=== PATIENT | female | born 1960 | race Caucasian/White ===

== ENCOUNTER 2016-10-24 16:19 | Inpatient (IN) | payer OTHER ==
[~2016-10-24] VITALS: Ht 152.4 cm; Wt 41.8 kg
--- NOTE | 2016-10-24 16:37 | NUR ---
WAS EVALUATED BY HER PULMONALOGIST WHOM RECOMMENDED SHE BE EVALUATED AT THE ED SECONDARY TO PNEUMONIA. HYPOXIA NOTED AT TRIAGE, TRANSFERED TO ROOM 6 FROM TRIAGE
--- NOTE | 2016-10-24 16:40 | NUR ---
REPORTS + COPD HX. O2 SAT 92% WITH 2 LITERS NC. REMAINS A DAILY SMOKER
--- NOTE | 2016-10-24 16:43 | NUR ---
O2 INCRASED TO 4 LITERS NC
--- NOTE | 2016-10-24 17:12 | NUR ---
PORTABLE CXRY BEING DONE AT PRESENT
--- NOTE | 2016-10-24 17:29 | ED DYSPNEA/ASTHMA COMPLAINT ---
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, LOW SUGAR Source: patient Exam Limitations: no limitations Vital Signs & Intake/Output Vital Signs & Intake/Output Vital Signs Date Time Temp Pulse Resp B/P Pulse O2 O2 Flow FiO2 Ox Delivery Rate 10/29 1024 93 Nasal 3.0L Cannula 10/29 0800 96 Nasal 3.0L Cannula 10/29 0600 98.4 87 18 100/62 96 Nasal Cannula ED Intake and Output 10/30 0000 10/29 1200 Intake Total 300 Output Total Balance 300 Intake, Oral 300 Number 0 Bowel Movements Allergies Coded Allergies: NO KNOWN ALLERGIES (06/03/12) Triage Note: WAS EVALUATED BY HER PULMONALOGIST WHOM RECOMMENDED SHE BE EVALUATED AT THE ED SECONDARY TO PNEUMONIA. Triage Nurses Notes Reviewed? yes HPI: 56 yo female with copd and RA, smoker currently, sees pulm, co sob and cough w green sputum for 1 week, intermittent fever and chills. seen by pulm today , O2 82% in office and cxr in office , dx with pna. was told to take ambulance to [facility] however pt refused. she then went home and presented here several hours later for further evaluation. no cp. sx are moderate, she has ROBLES. she is not on O2, . Using home neb tx and symbicort without relief. (JEANIE JOHNSTON,JORGE) Reconcile Medications Albuterol Sulfate (Proair Hfa) 90 MCG HFA.AER.AD 2 PUF INH Q4-6 PRN PRN COPD (Reported) Ascorbic Acid (Vitamin C) 500 MG TABLET 1 TAB PO DAILY SUPPLEMENT (Reported) Budesonide/Formoterol Fumarate (Symbicort 160-4.5 Mcg Inhaler) 160 MCG-4.5 MCG/ ACTUATION HFA.AER.AD 2 PUF INH BID COPD (Reported) Carisoprodol 350 MG TABLET 1 TAB PO 4XDAILY RA (Reported) Cholecalciferol (Vitamin D3) (Vitamin D) 2,000 UNIT CAPSULE 1 TAB PO DAILY SUPPLEMENT (Reported) Codeine/Butalbital/Asa/Caffein (Ascomp With Codeine Capsule) 30 MG-50 MG-325 MG- 40 MG CAPSULE 1 CAP PO PRN MIGRAINES (Reported) Hydromorphone HCl 4 MG TABLET 1 TAB PO TID PAIN (Reported) Ipratropium/Albuterol Sulfate (Iprat-Albut 0.5-3(2.5) MG/3 Ml) 0.5 MG-3 MG (2.5 MG BASE)/3 ML AMPUL.NEB 1 VIAL INH Q4H PRN COPD (Reported) Moxifloxacin HCl (Avelox) 400 MG TABLET 1 TAB PO DAILY PNEUMONIA Oxymorphone HCl (Oxymorphone HCl ER) 20 MG TAB.ER.12H 1 TAB PO BID PAIN ( Reported) Prednisone 10 MG TABLET 1 TAB PO DAILY COPD please take 40 mg(4 tabs) on 10/30,10/31 30 mg(3 tabs) on 11/01,11/02 20 mg(2 tabs) on 11/03,11/04 10 mg(1 tab ) on 11/05,11/06. Please stop on 11/06/16. Tiotropium [place] (Spiriva) 18 MCG CAP.W.DEV 1 CAP INH DAILY COPD . (WAYNE GRAY,SARATH Olson) Past History Travel History Traveled to [place] past 21 day No Medical History Any Pertinent Medical History? see below for history Respiratory: copd Musculoskeletal: RA Pneumonia Vaccine: 06/18/07 Influenza Vaccine: 06/04/12 Surgical History Surgical History: non-contributory Psychosocial History Who do you live with Spouse Services at Home None What is your primary language Gabonese Tobacco Use: Current Daily Use Daily Tobacco Use Amount/Type: => 5 Cigarettes daily Family History Hx Contributory? No (JORGE METZGER) Review of Systems Review of Systems Constitutional: Reports: see HPI. EENTM: Reports: no symptoms. Respiratory: Reports: see HPI. Cardiovascular: Reports: no symptoms. GI: Reports: no symptoms. Genitourinary: Reports: no symptoms. Musculoskeletal: Reports: no symptoms. Skin: Reports: no symptoms. Neurological/Psychological: Reports: no symptoms. Hematologic/Endocrine: Reports: no symptoms. Immunologic/Allergic: Reports: no symptoms. All Other Systems: Reviewed and Negative (JORGE METZGER) Physical Exam Physical Exam Respiratory: accessory muscle use Comments: Well-developed well-nourished no apparent distress. HEENT: Atraumatic, extraocular motion intact Neck: Supple, no lymphadenopathy Back: Nontender Respiratory: No respiratory distress, mild diffuse inspiratory and expiratory wheezing with prolonged expiratory phase and diminished breath sounds, rhonchi noted bilaterally most severe left lower lobe. Heart: Regular rate and rhythm no murmur Abdomen: Soft nontender nondistended Extremities: No edema, full range of motion Neuro: Alert and oriented x3 Psych: Mood affect normal, normal memory normal judgment. Skin: Warm and dry, no rash on exposed skin Core Measures ACS in differential dx? Yes Severe Sepsis Present: No Septic Shock Present: No (JORGE METZGER) Progress Differential Diagnosis: asthma, AMI, altitude sickness, bronchitis, costochondritis, CHF, COPD, musculoskeletal pain, pericarditis, pulmonary embolism, pneumonia, pneumothorax, rib fracture, unstable angina Plan of Care: Orders Procedure Date/time Status Discharge Patient 10/29 UNK Active Diagnostic Imaging: Viewed by Me: Radiology Read. Discussed w/RAD: Radiology Read. CXR Impression: PATIENT: CHARMAINE JOYA PRESENT AGE: 56 PATIENT ACCOUNT NO: [id number] : 58 LOCATION: [facility] ORDERING PHYSICIAN: SARATH DAILEY DO SERVICE DATE: 10/24/16 EXAM TYPE: RAD - XRY- PORTABLE CHEST XRAY EXAMINATION: XR PORTABLE CHEST CLINICAL INFORMATION: Hypoxia. COMPARISON: 06/03/2012 TECHNIQUE: Portable AP portable view of the chest was obtained. 5:10 PM FINDINGS: Small patchy infiltrate at the left lung base. This is new since prior exam. Right lung is clear. No pulmonary vascular congestion. No pleural effusion. The heart size is normal. The cardiac and mediastinal contours are normal. Dextroscoliosis of the upper mid thoracic spine. IMPRESSION: Small patchy left is a infiltrate. DICTATED BY: MAAME BLANCHARD MD DATE/TIME DICTATED:10/24/161730 TAPE MAKER:KRISSY Initial ED EKG: NSR, rate (95), multiform ventricular premature complexes. No ST segment or T-wave changes Prior EKG: unchanged Rhythm Strip: normal sinus rhythm Comments: DuoNeb treatment given, treated with 80 mg solu- Medrol IV, Rocephin 1 g IV, Zithromax 500 mg IV. Chest x-ray shows left lower lobe pneumonia, patient with hypoxia, smoker, worsening COPD exacerbation. Requires admission to the hospital for further evaluation and treatment and respiratory treatments as well as IV steroids and supplemental oxygen (JORGE METZGER) Departure Departure Disposition: STILL A PATIENT Condition: Stable Clinical Impression Primary Impression: Pneumonia Qualifiers: Pneumonia type: due to unspecified organism Laterality: left Lung location: lower lobe of lung Qualified Code: J18.1 - Lobar pneumonia, unspecified organism Secondary Impressions: Acute respiratory failure with hypoxia and hypercapnia, COPD exacerbation, Hypoxia Referrals: PATIENT HAS NO PRIMARY CARE DR Departure Forms: Customer Survey General Discharge Information Admission Note Spoke With: LINDA GRAY,RACHEL Documentation of Exam: Documentation of any treatments & extenuating circumstances including Concerns Regarding Discharge (functional status, medication knowledge or non-compliance, living conditions, etc.) that warrant an admission rather than observation: Patient requires supplemental oxygen, nebulizer treatments, IV site Medrol, IV antibiotics, she is a poor candidate for discharge home due to pulse ox of 82% as outpatient. She is a danger for worsening acute hypoxic respiratory failure and worsening pneumonia (JORGE METZGER) Departure Prescriptions: Current Visit Scripts Prednisone 1 TAB PO DAILY #22 TAB please take 40 mg(4 tabs) on 10/30,10/31 30 mg(3 tabs) on 11/01,11/02 20 mg(2 tabs) on 11/03,11/04 10 mg(1 tab ) on 11/05,11/06. Please stop on 11/06/16. Tiotropium [place] (Spiriva) 1 CAP INH DAILY #30 CAP . Moxifloxacin HCl (Avelox) 1 TAB PO DAILY 5 Days PA/AMMONIA REFRIGERATION WORKER Co-Sign Statement Statement: ED Attending supervision documentation- [] I saw and evaluated the patient. I have also reviewed all the pertinent lab results and diagnostic results. I agree with the findings and the plan of care as documented in the PA's/AMMONIA REFRIGERATION WORKER's documentation. [X] I have reviewed the ED Record and agree with the PA's/AMMONIA REFRIGERATION WORKER's documentation. [] Additions or exceptions (if any) to the PAs/AMMONIA REFRIGERATION WORKER's note and plan are summarized below: [] (WAYNE GRAY,SARATH Olson) Critical Care Note Critical Care Note Critical Care Time: 30-74 min (JORGE METZGER) Critical Care Note Critical Care Note Critical Care Time: 30-74 min
--- NOTE | 2016-10-24 17:38 | RADIOLOGY REPORT ---
EXAMINATION: XR PORTABLE CHEST CLINICAL INFORMATION: Hypoxia. COMPARISON: 06/03/2012 TECHNIQUE: Portable AP portable view of the chest was obtained. 5:10 PM FINDINGS: Small patchy infiltrate at the left lung base. This is new since prior exam. Right lung is clear. No pulmonary vascular congestion. No pleural effusion. The heart size is normal. The cardiac and mediastinal contours are normal. Dextroscoliosis of the upper mid thoracic spine. IMPRESSION: Small patchy left is a infiltrate.
[2016-10-24] MEDS ORDERED: HYDROMORPHONE HC4 M1 PO (17:48)
[2016-10-24] MEDS ORDERED: SYMBICORT 16010.2 GM INH (17:48)
[2016-10-24] MEDS ORDERED: OXYMORPHONE HCL20 MG PO (17:48)
[2016-10-24] MEDS ORDERED: CARISOPRODOL350 M1 PO (17:48)
[2016-10-24] MEDS ORDERED: IPRAT-ALBUT 0.5-3 ML INH (17:49)
[2016-10-24] MEDS ORDERED: ASCOMP WITH CO1 EACH PO (17:50)
[2016-10-24] MEDS ORDERED: PROAIR HFA8.5 GM INH (17:50)
[2016-10-24] MEDS ORDERED: VITAMIN C500 M8 PO (17:50)
[2016-10-24] MEDS ORDERED: VITAMIN D2000 UNIT PO (17:51)
--- NOTE | 2016-10-24 19:18 | NUR ---
LABS DRAWN AND SENT BY THIS [facility] (BLUE,SST,LAV,CARABALLO,BOTH SETS OF B/C)
[2016-10-24 19:26] LABS: ABSOLUTE BASOPHIL COUNT 0 /CUMM (0.0-0.2); ABSOLUTE EOSINOPHIL COUNT 0.1 /CUMM (0.0-0.7); ABSOLUTE GRANULOCYTE CT 3.5 /CUMM (1.4-6.5); ABSOLUTE LYMPH COUNT 2.3 /CUMM (1.2-3.4); ABSOLUTE MONOCYTE COUNT 0.5 /CUMM (0.10-0.60); BASOPHIL % 0.2 % (0.0-2.0); EOSINOPHIL % 2.2 % (0-5); GRANULOCYTE % 54.8 % (42.2-75.2); HEMATOCRIT 40.9 % (37-47); MEAN CORPUSCULAR HGB 30.6 PG (27.0-31.0); MEAN CORPUSCULAR HGB CONC 33.4 G/DL (33.0-37.0); MEAN CORPUSCULAR VOLUME 91.5 FL (81.0-99.0); MEAN PLATELET VOLUME 6.4 FL (7.4-10.4); PLATELET COUNT 226 /CUMM (130-400); RBC DISTRIBUTION WIDTH 14.1 % (11.5-14.5); RED BLOOD CELL CT 4.47 /CUMM (4.20-5.40); WHITE BLOOD CELL COUNT 6.5 /CUMM (4.8-10.8)
--- NOTE | 2016-10-24 19:40 | NUR ---
MEDICATED PER EMAR. PT ALERT, EATING FOOD BROUGHT BY VISITOR AND LAUGHING AND TALKING IN NAD.
--- NOTE | 2016-10-24 19:45 | NUR ---
PT ASKED ABOUT URINE SAMPLE AND STATES SHE IS UNABLE TO PROVIDE ONE AT THIS TIME
--- NOTE | 2016-10-24 20:36 | NUR ---
[facility] [place] ASSIGNMENT [phone]
--- NOTE | 2016-10-24 20:42 | History & Physical ---
JOSHUA GRAY,KINGSTON 10/24/162041: General Information and HPI MD Statement: I have seen and personally examined CHARMAINE JOYA and documented this H&P. The patient is a 56 year old F who presented with a patient stated chief complaint of [difficulty breathing and cough]. Source of Information: patient Exam Limitations: no limitations History of Present Illness: Patient is a 56 year old lady who has come to the ED due to worsening SOB since last monday (3-4 days ago). About a week prior she had an episode Flu-like symptoms including fever (max 102), with chills and fatigue, her daughter was sick with the same symptoms as well. Patient also reported cough which was nonproductive at the beginning but has gradually become productive with green phlegm. Patient also reported gradual worsening of shortness of breath until last Monday when she couldn't 'get a breath', she tried to see her freight traffic consultant , Dr. Jaffe (in [place]) on Monday but was not successful. She tried Tylenol , nebulizers every 4 hours , which did not improve her symptoms. She saw her freight traffic consultant today, got a chest x-ray, suggesting pneumonia. He recommended that patient should come to the ED. Upon arrival to the ED patient's SaO2 was 88%, she was given duoneb and was put on oxygen. She was also given a dose of IV Solu-Medrol as well as azithromycin and ceftriaxone. Currently the patient's shortness of breath has significantly improved, still kept on 4 L of oxygen through nasal cannula. Reports productive coughing, no fever or chills. However reports a pain in her back on the left lower chest wall especially when she takes a deep breath. Patient has a history of heavy smoking in the past, COPD not on home oxygen, on Symbicort. Last PFT was done a year ago. Currently smokes only once in every 3 weeks. Past history is also significant for rheumatoid arthritis, currently reports active disease with joint pain on the right hand and left big toe. She follows up with Dr. Jimenez in [place]. Patient denies abdominal pain, changes in bowel habits, urinary symptoms. she reports not having very good appetite and that she has lost weight of about 40 pounds since her diagnosis of pancreatitis a few months ago. Allergies/Medications Allergies: Coded Allergies: NO KNOWN ALLERGIES (06/03/12) Home Med list Albuterol Sulfate (Proair Hfa) 90 MCG HFA.AER.AD 2 PUF INH Q4-6 PRN PRN COPD (Reported) Ascorbic Acid (Vitamin C) (Unknown Strength) TABLET (Unknown Dose) PO DAILY SUPPLEMENT (Reported) Budesonide/Formoterol Fumarate (Symbicort 160-4.5 Mcg Inhaler) 160 MCG-4.5 MCG/ ACTUATION HFA.AER.AD 2 PUF INH BID COPD (Reported) Carisoprodol 350 MG TABLET 1 TAB PO 4XDAILY RA (Reported) Cholecalciferol (Vitamin D3) (Vitamin D) (Unknown Strength) CAPSULE (Unknown Dose) PO DAILY SUPPLEMENT (Reported) Codeine/Butalbital/Asa/Caffein (Ascomp With Codeine Capsule) 30 MG-50 MG-325 MG- 40 MG CAPSULE 1 CAP PO PRN MIGRAINES (Reported) Hydromorphone HCl 4 MG TABLET 1 TAB PO TID PAIN (Reported) Ipratropium/Albuterol Sulfate (Iprat-Albut 0.5-3(2.5) MG/3 Ml) 0.5 MG-3 MG (2.5 MG BASE)/3 ML AMPUL.NEB 1 VIAL INH Q4H PRN COPD (Reported) Oxymorphone HCl (Oxymorphone HCl ER) 20 MG TAB.ER.12H 1 TAB PO BID PAIN ( Reported) Past History Travel History Traveled to [place] past 21 day No Medical History Respiratory: copd Musculoskeletal: RA Pneumonia Vaccine: 06/18/07 Influenza Vaccine: 06/04/12 Surgical History Surgical History: non-contributory Past Family/Social History Family History Relations & Conditions if any FATHER FH: diabetes mellitus MOTHER FH: diabetes mellitus FH: heart disease Psychosocial History Where do you live? Home Services at Home: None Primary Language: Belarusian Smoking Status: Current Some Day Smoker ETOH Use: denies use Illicit Drug Use: denies illicit drug use Functional Ability ADLs Independent: dressing, eating, toileting, bathing. Ambulation: independent IADLs Independent: shopping, housework, finances, food prep, telephone, transportation , medication admin. Review of Systems Review of Systems Constitutional: Denies: chills, fever, weakness. EENTM: Reports: no symptoms. Cardiovascular: Denies: chest pain, palpitations. Respiratory: Reports: cough, short of breath, sputum production. GI: Denies: abdominal pain, changes in stool. Genitourinary: Reports: no symptoms. Musculoskeletal: Reports: no symptoms. Skin: Reports: no symptoms. Neurological/Psychological: Reports: no symptoms. Hematologic/Endocrine: Reports: no symptoms. Immunologic/Allergic: Reports: no symptoms. Exam & Diagnostic Data Last 24 Hrs of Vital Signs/I&O Vital Signs Date Time Temp Pulse Resp B/P Pulse O2 O2 Flow FiO2 Ox Delivery Rate 10/25 0000 Nasal 4.0L Cannula 10/24 2231 97.6 90 20 100/60 94 Nasal Cannula 10/24 2128 96.8 89 18 118/64 95 Nasal 4.0L Cannula 10/24 1943 97.3 91 20 126/62 95 Nasal 4.0L Cannula 10/24 1805 97 Nasal 4.0L Cannula 10/24 1640 22 92 Nasal 2.0L Cannula 10/24 1635 97.1 72 24 121/72 88 Room Air Intake & Output 10/25 0800 10/25 0000 10/24 1600 Intake Total 970 Output Total Balance 970 Intake, IV 350 Intake, Oral 620 Patient 40.823 kg Weight Physical Exam General Appearance Alert, Oriented X3, Cooperative, No Acute Distress Skin No Rashes, No Breakdown, No Significant Lesion HEENT Atraumatic, PERRLA, EOMI, Mucous Membr. moist/pink Neck Supple, No JVD Cardiovascular Regular Rate, Normal S1, Normal S2 Lungs decreased breath sounds, expiratory wheezing bilaterally Abdomen Normal Bowel Sounds, Soft, No Tenderness Neurological Normal Speech, Strength at 5/5 X4 Ext, Normal Tone, Sensation Intact, Cranial Nerves 3-12 NL Extremities there is tenderness, erythema and edema over the second and third right metacarpophalangeal joints, as well as subcutaneous rheumatoid nodules on the palmar aspect of the right hand. there is tenderness, erythema and edema on the right 1st metatarsophalangial joint there is mild tenderness on the second left metacarpophalangeal joint. there is Vascular Normal Pulses, Pulses Symmetrical Last 24 Hrs of Labs/Norm: Laboratory Tests 10/24/162122: Urine Opiates Screen > 4000.00 H, Methadone Screen < 40, Barbiturate Screen < 60, Ur Phencyclidine Scrn < 6.00, Amphetamines Screen < 100, U Benzodiazepines Scrn < 85, Urine Cocaine Screen < 50, Urine Cannabis Screen 11.80 10/24/162055: Lactic Acid Cancelled 10/24/161899: Lactic Acid 1.5 10/24/161899: Anion Gap 6, Estimated GFR > 60, BUN/Creatinine Ratio 15.0, Glucose 80, Calcium 8.7, Magnesium 1.9, Total Bilirubin 0.3, AST 18, ALT 34, Alkaline Phosphatase 66 , Troponin I < 0.01, Total Protein 6.5, Albumin 3.7, Globulin 2.8, Albumin/ Globulin Ratio 1.3, CBC w Diff NO MAN DIFF REQ, RBC 4.47, MCV 91.5, MCH 30.6, RDW 14.1, MPV 6.4 L, Gran % 54.8, Lymphocytes % 35.4, Monocytes % 7.4, Eosinophils % 2.2, Basophils % 0.2, Absolute Granulocytes 3.5, Absolute Lymphocytes 2.3, Absolute Monocytes 0.5, Absolute Eosinophils 0.1, Absolute Basophils 0, PUBS MCHC 33.4 Microbiology 10/25 12 LOWER RESP: Respiratory Culture - COLB 10/25 12 LOWER RESP: Gram Stain - COLB 10/24 1908 BLOOD: Blood Culture - RECD 10/24 1899 BLOOD: Blood Culture - RECD Assessment/Plan Assessment: Patient is a 56-year-old lady with PMH of COPD not on home oxygen, pancreatitis and rheumatoid arthritis who came to the ED due to several days of worsening shortness of breath and productive cough. She also had a recent flu-like infection with fever and chills that is resolved. CXR showed small patchy infiltrate at the left lung base. Problem list and plan: Progressive shortness of breath with productive cough likely due to COPD exacerbation and possible bacterial PNA superimposed on a recent viral URTI. CXR showed small patchy infiltrate at the left lung base. no fever, but productive cough and chills. * O2 Supplementation as needed * Vital signs every shift * IV Solu-Medrol 40 mg IV Q8 * TRC nebs * mucinex 600 mg BID * Sputum culture * Legionella urine antigen * Ceftriaxone and azithromycin * Repeat CBC in a.m. * consider pulm consult if symptoms does not improve Rheumatoid arthritis * Continue home medications * Ibuprofen 600 Q6 PRN DVT px * lovenox Diet * regular FULL code As Ranked By This Provider Problem List: 1. COPD exacerbation 2. pneumonia 3. Rheumatoid arthritis Core Measures/Miscellaneous Acute Coronary Syndrome ACS Diagnosis: No Cerebrovascular Accident CVA/TIA Diagnosis: No Congestive Heart Failure CHF Diagnosis: No Venous Thromboembolism VTE Risk Factors: Acute medical illness, Age > 40 VTE Prophylaxis Ordered Inpt: Pharm- Lovenox No Mech VTE prophylaxis d/t: No contraindications No VTE Pharm Prophylaxis d/t: No contraindications VTE Diagnosis: No VTE Type: NONE VTE Confirmed by (Test): NONE Severe Sepsis Severe Sepsis Present: No Septic Shock Septic Shock Present: No Miscellaneous Documentation Attending Case Discussed With: LINDA GRAY,RACHEL Primary Care Physician: JORGE LEHMAN MD Patient sees these Specialists Dr. Jimenez Level of Patient Care: General Surgical MIKY ESQUIVEL 10/24/162043: Resident Review Statement Resident Statement: examined this patient, discussed with landscape maintenance internship, agreed with landscape maintenance internship Other Findings: Patient is 66-year-old female with past medical history significant for rheumatoid arthritis, COPD not on home oxygen was sent in from her freight traffic consultant with chief complaint of productive cough, fever and chills for last 3-4 days. According to patient she had flulike symptoms last week and had sick contact with her daughters who was also sick with cold symptoms. She started coughing this Monday and her cough was initially nonproductive but from today is more productive and she is bringing up greenish phlegm without any evidence of hemoptysis. She is a current smoker but she came down from a pack a day to few cigarettes a week for last few years she uses inhalers and nebulizer at home and recently she increased frequency without any significant relief. She had high- grade fever on Monday along with chills but she remained afebrile afterwards. She denied chest pain, palpitations, sinus headache or pressure, any urinary or bowel complaints. Vitals on admission were temperature 97.1, pulse 72, respiratory rate 24, blood pressure control 21/72 and she was saturating 88% on room air and later on her oxygen saturation went up to 92 on 2 L and then 4 L nasal cannula. Labs showed WBC count 6.5, hemoglobin 13.6, hematocrit 40.9, platelet count 226, sodium 141, potassium 3.7, carbon oxide 88, the urine 9 and creatinine 0.6. Lactic acid was within normal range and initial set of troponin was negative. Urine toxicology screening was positive for opiates for more than 4000. Chest x-ray showed small left-sided patchy infiltrate Physical examination Alert and oriented 3 with no acute distress Had a traumatic Neck supple Chest showed minimal. Entry Heart S1-S2 normal no added sounds Abdomen soft with normal bowel sounds Extremities showed no evidence of cyanosis edema, swollen first left metatarsal joint no evidence of infection or erythema Assessment and plan Patient is 56 year old female with a history of COPD not on home oxygen and rheumatoid arthritis treated with acute symptoms of productive cough mild left-sided pleuritic chest pain with evidence of left-sided lower lobe infiltrate on chest x-ray most likely due to community-acquired pneumonia. We will admit patient to general medical floor of her [facility] [place] for the following problems Problem #1 hypoxia and productive cough and left lower lobe patchy infiltrate on chest x-ray most likely due to community-acquired pneumonia versus COPD exacerbation Vital signs every shift Supplemental oxygen to keep oxygen saturation more than 90% We will trend WBCs and BEP TRC and embolization Will start her on ceftriaxone and azithromycin IV Solu-Medrol 40 mg every 8 hours Tessalon Perles for cough We will send sputum culture Problem #2 history of rheumatoid arthritis seen by pain management We will continue her home pain medication regimen. Regular diet , Pharmacological DVT prophylaxis Patient is full code LINDA GRAY, [facility] 10/24/162109: Attending MD Review Statement Attending Statement Attending MD Statement: examined this patient, discuss w/resident/PA/CONCRETING SUPERVISOR, agreed w/resident/PA/CONCRETING SUPERVISOR, discussed with family Attending Assessment/Plan: 56 yo F with h/o asthma/COPD who continues to smoke, RA (Dr. Jimenez [employer], Dr. Parekh pain mx), seasonal allergies, migraines, is sent in by her Bridge Engineer (Dr. Jaffe) for hypoxia. Patient reports have flu like symptoms 1 week ago, followed by chills, fever of 102, exertional dyspnea and cough productive of green phlegm. No relief with nebs. Sick contact ++ (daughter who had the flu). Her last exacerbation was 1 year ago. She has never been intubated. She was at her Pulm office today, O2 sats were 82%, CXR was s/o pneumonia and she was sent to ER for further evaluation. On ER arrival, her O2 sats were 88%, otherwise stable. Exam: Cachectic female, MMM, Neck supple, Chest b/l reduced air entry with scattered wheeze, left basilar rhonchi+. Heart S1S2 regular. Labs: no leukocytosis, bicarb 38, lactic acid 1.5, trop neg. Utox positive for opiates (patient's home meds). CXR s/o patchy infiltrate at left lung base. EKG: SR, PVC's, Qtc 473. 1. Acute hypoxic respiratory failure 2/2 LLL pneumonia and COPD exacerbation. GM admit, TRC nebs, sputum cultures, urine legionella and strep antigen, IV ceftriaxone, IV azithromycin, IV steroids, mucinex BID. Would check a baseline ABG, given hypercarbia (HCO3 38). If persistent symptoms, consider Pulm consult. Smoking cessation counseling, nicotine patch as needed. 2. Continue pain meds soma, dilaudid and oxymorphone (converted to oxycontin per pharmacy). DVT ppx Lovenox. Full code.
--- NOTE | 2016-10-24 21:11 | Admission Certification ---
Admission Certification Certification Statement - As attending physician, I certify that at the time of - admission, based on clinical presentation, severity of - symptoms, need for further diagnostic testing and - therapeutic interventions, and risk of adverse outcomes - without in-hospital treatment, in my clinical assessment, - this patient requires an acute hospital stay for a minimum - of two nights or longer. I have also considered psychsocial - factors such as support system, advanced age, financial - issues, cognitive issues, and failed out-patient treatments, - past re-admission history, safety of patient, and lack of - compliance as applicable. Specific rationale supporting this admission is: Acute hypoxic respiratory failure, left lower lobe pneumonia, COPD exacerbation.
--- NOTE | 2016-10-24 21:24 | NUR ---
PT AMBULATORY TO/FROM BATHROOM WITHOUT 02 (PT'S CHOICE) WITH NAD. URINE TRIO SENT.
--- NOTE | 2016-10-24 21:58 | NUR ---
REPORT CALLED TO [facility] ON [facility]NA. PHARMACY CALLED FOR 2200 MEDS, NO ANSWER.
--- NOTE | 2016-10-24 22:06 | NUR ---
PT MEDICATED WITH NIGHT MEDS EXCEPT SYMBICORT WHICH CANNOT BE OBTAINED AT THIS TIME. TRANSPORT BOOKED.
[2016-10-24 22:31] VITALS: BP 100/60
--- NOTE | 2016-10-24 23:57 | NUR ---
PT ARRIVED TO FLOOR AT [facility]. 2219. A&O X 3. LUNGS DIM, NO COMPLAINTS OFFERED. BED LOW, LOCKED, CALL BLACK WITHIN REACH. MONITOR RESPIRATORY STATUS.
--- NOTE | 2016-10-25 05:21 | PN- Housestaff ---
ADAM BERNARD 10/25/16 0521: Subjective Follow-up For: - Pneuomonia - COPD exacerbation Subjective: Ms Wade was comfortable this morning. She was afebrile overnight. She was slightly short of breath at rest, but not in any acute distress when I saw her this morning. Oxygen saturation ranged in between 94-95% on 4 L oxygen. She does not use any oxygen at home. No chest pain, palpitations. No abdominal pain. Review of Systems Constitutional: Reports: see HPI. Objective Last 24 Hrs of Vital Signs/I&O Vital Signs Date Time Temp Pulse Resp B/P Pulse O2 O2 Flow FiO2 Ox Delivery Rate 10/25 1108 Nasal 4.0L Cannula 10/25 1105 95 Nasal 5.0L Cannula 10/25 0800 95 Nasal 4.0L Cannula 10/25 0644 97.8 94 22 110/76 94 Nasal 5.0L Cannula 10/25 0000 Nasal 4.0L Cannula 10/24 2231 97.6 90 20 100/60 94 Nasal Cannula 10/24 2128 96.8 89 18 118/64 95 Nasal 4.0L Cannula 10/24 1943 97.3 91 20 126/62 95 Nasal 4.0L Cannula 10/24 1805 97 Nasal 4.0L Cannula 10/24 1640 22 92 Nasal 2.0L Cannula 10/24 1635 97.1 72 24 121/72 88 Room Air Intake & Output 10/25 1600 10/25 0800 10/25 0000 Intake Total 300 970 Output Total Balance 300 970 Intake, IV 350 Intake, Oral 300 620 Patient 89 lb 15.99 oz Weight Physical Exam General Appearance: No Acute Distress Other Physical Findings: General Exam: AAOx3, No acute distress, Skin: No rashes, no breakdown HEENT: PERRLA, EOMI Neck: Supple, No JVD No cervical lymphadenopathy CVS: Reg Rate, Normal S1,S2, No MGR Resp: Low air entry bilaterally, no ronchi/rales Abdomen: Soft, No tenderness, Normal Bowel Sounds Neuro: Normal Speech, Strength 5/5 b/l x 4 extremities, Sensation intact, CN III -XII NL, Reflexes 2+ Extremities: No cyanosis, no clubbing or pedal edema. Current Medications: Current Medications Sig/Renetta Start time Last Medication Dose Route Stop Time Status Admin Acetaminophen 650 MG Q6P PRN 10/25 0015 AC PO Acetaminophen 1,000 MG BID PRN 10/24 2115 AC IV Acetaminophen 650 MG Q6P PRN 10/24 2100 DC PO Albuterol Sulfate 3 ML Q6 10/25 1200 AC 10/25 INH 1052 Albuterol Sulfate 3 ML ONCE ONE 10/24 1745 DC 10/24 INH 10/24 1746 1805 Azithromycin 500 MG DAILY 10/25 1000 AC 10/25 Dextrose/Water 250 ML IV 0928 Azithromycin 500 MG ONCE ONE 10/24 1745 DC 10/24 Dextrose/Water 250 ML IV 10/24 1844 1935 Benzonatate 100 MG TID 10/25 1000 DC PO Benzonatate 100 MG TID 10/25 1000 CAN PO 10/26 1601 Budesonide/ 2 PUF BID 10/24 2200 AC 10/25 Formoterol Fumarate INH 0928 Carisoprodol 0 .STK-MED ONE 10/24 2202 DC PO Carisoprodol 350 MG 4 TIMES/DAY 10/24 2200 AC 10/25 PO 0928 Ceftriaxone Sodium 1,000 MG DAILY 10/25 1000 AC 10/25 IV 0928 Ceftriaxone Sodium 0 .STK-MED ONE 10/24 1914 DC .ROUTE Ceftriaxone Sodium 1,000 MG ONCE ONE 10/24 1745 DC 10/24 IV 10/24 1746 1910 Enoxaparin Sodium 40 MG DAILY 10/25 1000 AC 10/25 SC 0929 Guaifenesin 600 MG Q12 10/25 1000 AC 10/25 PO 1135 Hydromorphone HCl 0 .STK-MED ONE 10/24 2202 DC PO Hydromorphone HCl 4 MG Q8 10/24 2200 AC 10/25 PO 0554 Ibuprofen 600 MG Q6P PRN 10/25 0015 AC PO Ipratropium [place] 2.5 ML Q6 10/25 1200 AC 10/25 INH 1053 Ipratropium [place] 2.5 ML ONCE ONE 10/24 1745 DC 10/24 INH 10/24 1746 1805 Methylprednisolone 40 MG Q8 10/25 0600 AC 10/25 IV 0553 Methylprednisolone 0 .STK-MED ONE 10/24 1917 DC .ROUTE Methylprednisolone 80 MG ONCE ONE 10/24 1745 DC 10/24 IV 10/24 1746 1900 Oxycodone HCl 0 .STK-MED ONE 10/24 2201 DC PO Oxycodone HCl 10 MG Q12 10/24 2199 AC 10/25 PO 0928 Last 24 Hrs of Lab/Norm Results Last 24 Hrs of Labs/Mics: Laboratory Tests 10/25/16 0800: Anion Gap 9, Estimated GFR > 60, BUN/Creatinine Ratio 32.0 H, CBC w Diff NO MAN DIFF REQ, RBC 4.27, MCV 91.7, MCH 30.9, RDW 13.9, MPV 6.9 L, Gran % 81.0 H, Lymphocytes % 14.6 L, Monocytes % 3.7, Eosinophils % 0.5, Basophils % 0.2, Absolute Granulocytes 3.5, Absolute Lymphocytes 0.6 L, Absolute Monocytes 0.2, Absolute Eosinophils 0, Absolute Basophils 0, PUBS MCHC 33.7 10/24/162122: Urine Opiates Screen > 4000.00 H, Methadone Screen < 40, Barbiturate Screen < 60, Ur Phencyclidine Scrn < 6.00, Amphetamines Screen < 100, U Benzodiazepines Scrn < 85, Urine Cocaine Screen < 50, Urine Cannabis Screen 11.80 10/24/162055: Lactic Acid Cancelled 10/24/161899: Lactic Acid 1.5 10/24/161899: Anion Gap 6, Estimated GFR > 60, BUN/Creatinine Ratio 15.0, Glucose 80, Calcium 8.7, Magnesium 1.9, Total Bilirubin 0.3, AST 18, ALT 34, Alkaline Phosphatase 66 , Troponin I < 0.01, Total Protein 6.5, Albumin 3.7, Globulin 2.8, Albumin/ Globulin Ratio 1.3, CBC w Diff NO MAN DIFF REQ, RBC 4.47, MCV 91.5, MCH 30.6, RDW 14.1, MPV 6.4 L, Gran % 54.8, Lymphocytes % 35.4, Monocytes % 7.4, Eosinophils % 2.2, Basophils % 0.2, Absolute Granulocytes 3.5, Absolute Lymphocytes 2.3, Absolute Monocytes 0.5, Absolute Eosinophils 0.1, Absolute Basophils 0, PUBS MCHC 33.4 Microbiology 10/25 829 LOWER RESP: Respiratory Culture - RES 10/25 829 LOWER RESP: Gram Stain - RES 10/24 1908 BLOOD: Blood Culture - RES 10/24 1899 BLOOD: Blood Culture - RES Assessment/Plan Assessment: She is a middle-aged woman with a past medical history of COPD (not on home oxygen), rheumatoid arthritis (on pain medications) is being evaluated for fever , chills, productive cough, worsening shortness of breath 1 week. Known past smoker(quit 3wks ago). At the time of admission, vitals-temperature 97.1, pulse rate 72, respiratory 24 , blood pressure 121/72, oxygen saturation 88% on room air (improved to 92% on 4 L oxygen-nasal cannula). Laboratory findings-WBC 6.5 (no leukocytosis), hemoglobin 13.6, platelets 226, sodium 141, potassium 3.7. Bicarbonate-38 ( likely metabolic compensation for COPD), normal renal function-BUN 9, serum creatinine 0.6. Normal liver function-AST 18, ALT 34, alkaline phosphatase 66, negative cardiac enzymes. Radiological findings-chest x-ray indicated patchy infiltrate on left lung base. Differential diagnosis: #1 viral pneumonia #2 community-acquired pneumonia #3 COPD exacerbation Below is the problem list and plan: #1 shortness of breath, cough- acute hypoxic respiratory failure likely from COPD exacerbation and/or pneumonia. Currently on antibiotics-azithromycin and ceftriaxone. Lower respiratory cultures-pending. Currently on intravenous Solu- Medrol 40 mg every 8, which will be decreased to 40 mg twice a day starting in the a.m. Blood cultures 2- negative so far. Rapid viral influenza A/P- negative. Urine-Legionella and strep has been added to a.m. labs. Currently on Mucinex, albuterol and ipratropium, Symbicort. Check CBC in the a.m. Bicarbonate improving 38-->32. #2-pain management- currently on Soma 350 mg every 6, hydromorphone by mouth 4 mg every 8, OxyContin 10 mg by mouth twice a day. Monitor closely for sedation and respiratory depression. #3 DVT prophylaxis-Lovenox. Problem List: 1. Acute respiratory failure with hypoxia and hypercapnia 2. pneumonia 3. COPD exacerbation 4. Rheumatoid arthritis Pain Ratin Pain Location: none Pain Goal: Pain 4 or less Pain Plan: tylenol prn Tomorrow's Labs & Rationales: cbc- to check leucocytosis. Pt has granulocytosis. QUIANA GRAY,NEETA 10/25/16 1411: Attending MD Review Statement Attending Statement Attending MD Statement: examined this patient, discuss w/resident/PA/WEB ANALYTICS SPECIALIST, agreed w/resident/PA/WEB ANALYTICS SPECIALIST, reviewed EMR data (avail) Attending Assessment/Plan: Patient is feeling slightly better and difficult breathing has reduced. She has been afebrile with stable vital signs. She is still coughing in sputum color has changed from green to light yellow. Chest exam shows bilateral scattered crepitation with decreased air entry overall. Her WBC count is 4.3 and chemistry labs are within normal limits. Imaging studies from admissions were reviewed. Plan is to continue current antibiotics TRC nebulizer treatment and oxygen. We will attempt to taper Oxygen As Tolerated. follow up culture reports.
[2016-10-25 06:44] VITALS: BP 110/76
--- NOTE | 2016-10-25 07:58 | PN- Student ---
Subjective Subjective: Source: Patient Follow-up for: COPD Exacerbation; Pneumonia I visited Ms. Wade this morning and she was at her bed comfortably but with some respiratory discomfort. She had no overall complaints but admitted to be feeling short of breath while holding a conversation. The patient is currently on 5L/min via nasal canula and still mentions to feel SOB. She has a productive cough that started with a green sputum and then turned into a clear colored one. When the patient was asked regarding her smoking status she mentioned that she quitted weeks ago; she denied any nicotine patches and mentioned to be taking care of her smoking habit cessation. The patient denied any fever episodes, night sweats, chills and any overnight complications. She also denied any constipation, nausea, vomiting or diarrhea. Objective Objective: Current Medications Sig/Renetta Start time Last Medication Dose Route Stop Time Status Admin Acetaminophen 650 MG Q6P PRN 10/25 0015 AC PO Acetaminophen 1,000 MG BID PRN 10/24 2115 AC IV Acetaminophen 650 MG Q6P PRN 10/24 2100 AC PO Albuterol Sulfate 3 ML ONCE ONE 10/24 1744 DC 10/24 INH 10/24 174 1805 Azithromycin 500 MG DAILY 10/25 1000 AC Dextrose/Water 250 ML IV Azithromycin 500 MG ONCE ONE 10/24 1744 DC 10/24 Dextrose/Water 250 ML IV 10/24 1844 1935 Benzonatate 100 MG TID 10/25 1000 DC PO Benzonatate 100 MG TID 10/25 1000 CAN PO 10/26 1601 Budesonide/ 2 PUF BID 10/24 2199 AC 10/25 Formoterol Fumarate INH 0025 Carisoprodol 0 .STK-MED ONE 10/24 2202 DC PO Carisoprodol 350 MG 4 TIMES/DAY 10/24 2199 AC 10/24 PO 2206 Ceftriaxone Sodium 1,000 MG DAILY 10/25 1000 AC IV Ceftriaxone Sodium 0 .STK-MED ONE 10/24 1914 DC .ROUTE Ceftriaxone Sodium 1,000 MG ONCE ONE 10/24 1744 DC 10/24 IV 10/24 174 191 Enoxaparin Sodium 40 MG DAILY 10/25 1000 AC SC Guaifenesin 600 MG Q12 10/25 1000 UNVr PO Hydromorphone HCl 0 .STK-MED ONE 10/24 2202 DC PO Hydromorphone HCl 4 MG Q8 10/24 2199 AC 10/25 PO 0554 Ibuprofen 600 MG Q6P PRN 10/25 0015 AC PO Ipratropium [place] 2.5 ML ONCE ONE 10/24 174 DC 10/24 INH 10/24 1745 1805 Methylprednisolone 40 MG Q8 10/25 599 AC 10/25 IV 0553 Methylprednisolone 0 .STK-MED ONE 10/24 1916 DC .ROUTE Methylprednisolone 80 MG ONCE ONE 10/24 1744 DC 10/24 IV 10/24 174 1900 Oxycodone HCl 0 .STK-MED ONE 10/24 2201 DC PO Oxycodone HCl 10 MG Q12 10/24 2199 AC 10/24 PO 2206 Vital Signs Date Time Temp Pulse Resp B/P Pulse O2 O2 Flow FiO2 Ox Delivery Rate 10/25 643 97.8 94 22 110/76 94 Nasal 5.0L Cannula 10/25 0000 Nasal 4.0L Cannula 10/24 2230 97.6 90 20 100/60 94 Nasal Cannula 10/24 2127 96.8 89 18 118/64 95 Nasal 4.0L Cannula 10/24 1943 97.3 91 20 126/62 95 Nasal 4.0L Cannula 10/24 1805 97 Nasal 4.0L Cannula 10/24 1640 22 92 Nasal 2.0L Cannula 10/24 1635 97.1 72 24 121/72 88 Room Air Intake & Output 10/25 0800 10/25 0000 10/24 1600 Intake Total 300 970 Output Total Balance 300 970 Intake, IV 350 Intake, Oral 300 620 Patient 89 lb 15.99 oz Weight Physical Examination: General: Mild respiratory distress. Alert and oriented X3 HEENT: PERRLA, EOMI, NC/AT Neck: Supple, No JVD Mouth: No central cyanosis, no pharyngeal changes Lungs: Diminished breath sounds on auscultation; more pronounced on the L-Lung CV: Normal S1, S2; No murmurs were heard GI: Normal bowel sounds; Soft abdomen Upper Limbs: No finger clubbing; Rheumatoid nodules in PIP's. Neurological: Normal speech Results Results: Laboratory Tests 10/24/162122: Urine Opiates Screen > 4000.00 H, Methadone Screen < 40, Barbiturate Screen < 60, Ur Phencyclidine Scrn < 6.00, Amphetamines Screen < 100, U Benzodiazepines Scrn < 85, Urine Cocaine Screen < 50, Urine Cannabis Screen 11.80 10/24/162055: Lactic Acid Cancelled 10/24/161899: Lactic Acid 1.5 10/24/161899: Anion Gap 6, Estimated GFR > 60, BUN/Creatinine Ratio 15.0, Glucose 80, Calcium 8.7, Magnesium 1.9, Total Bilirubin 0.3, AST 18, ALT 34, Alkaline Phosphatase 66 , Troponin I < 0.01, Total Protein 6.5, Albumin 3.7, Globulin 2.8, Albumin/ Globulin Ratio 1.3, CBC w Diff NO MAN DIFF REQ, RBC 4.47, MCV 91.5, MCH 30.6, RDW 14.1, MPV 6.4 L, Gran % 54.8, Lymphocytes % 35.4, Monocytes % 7.4, Eosinophils % 2.2, Basophils % 0.2, Absolute Granulocytes 3.5, Absolute Lymphocytes 2.3, Absolute Monocytes 0.5, Absolute Eosinophils 0.1, Absolute Basophils 0, PUBS MCHC 33.4 Microbiology 10/25 12 LOWER RESP: Respiratory Culture - COLB 10/25 12 LOWER RESP: Gram Stain - COLB 10/24 1908 BLOOD: Blood Culture - RECD 10/24 1899 BLOOD: Blood Culture - RECD Assessment/Plan Assessment: Ms. Wade is a 56 y/o patient that came in to the [facility] due to a chief complaint of respiratory difficulties. The patient has a past medical history of COPD and Rheumatoid Arthritis and is currently being evaluated due to the following symptoms: Fever, productive cough and shortness of breath. At the moment of admission the patient had stable vital signs with the exception of her O2 saturation level (88% on RA). Based on the radiological findings (L-lung patchy infiltrate),the physical exam findings (diminished L-Lung breath sounds), the stable vital signs (especially the normal temperature upon admission) and the exposure to sick contacts (which got better) it can be possible that the patient has a viral pneumonia which might have been facilitated by her COPD previous history. Since the patient is not febrile and the physical examination didn't revealed any wheezing/crackles on auscultation and the Radiological findings didn't show consolidation in the Lungs, it is less likely that the patient might have Community-Acquired Pneumonia; however, screening should be done and sputum analysis should be perform to rule out any growing bacteria. Plan: Problem List & Plan: 1) Shortness of Breath/Pneumonia - Oxygen supplementation via Nasal Canula at 4L/min (Goal O2 Sat of 92% at RA) - Administer Ceftriaxone (1g IV qDay) and Azithromycin (500mg IV) - Administer Solumedrol (125mg IV once a day) - Schedule a supervisor [employer] (Dr. Antonio) visit to assess status of COPD - Order sputum and blood cultures to check for potential pneumonia causality - Perform urine analysis and assess Legionella Antigen 2) Rheumatoid Arthritis - Continue the regular regimen that the patient follows 3) Normal Diet 4) DVT PPx - Administer Lovenox SubQ to prevent Deep Venous Thrombi formation due to bed- ridden status. tylenol prn Tomorrow's Labs & Rationales: cbc- to check leucocytosis. Pt has granulocytosis.
[2016-10-25 08:58] LABS: ABSOLUTE BASOPHIL COUNT 0 /CUMM (0.0-0.2); ABSOLUTE EOSINOPHIL COUNT 0 /CUMM (0.0-0.7); ABSOLUTE GRANULOCYTE CT 3.5 /CUMM (1.4-6.5); ABSOLUTE LYMPH COUNT 0.6 /CUMM (1.2-3.4); ABSOLUTE MONOCYTE COUNT 0.2 /CUMM (0.10-0.60); BASOPHIL % 0.2 % (0.0-2.0); EOSINOPHIL % 0.5 % (0-5); HEMATOCRIT 39.1 % (37-47); MEAN CORPUSCULAR HGB 30.9 PG (27.0-31.0); MEAN CORPUSCULAR HGB CONC 33.7 G/DL (33.0-37.0); MEAN CORPUSCULAR VOLUME 91.7 FL (81.0-99.0); MEAN PLATELET VOLUME 6.9 FL (7.4-10.4); PLATELET COUNT 237 /CUMM (130-400); RBC DISTRIBUTION WIDTH 13.9 % (11.5-14.5); RED BLOOD CELL CT 4.27 /CUMM (4.20-5.40); WHITE BLOOD CELL COUNT 4.3 /CUMM (4.8-10.8)
--- NOTE | 2016-10-25 12:49 | NUR ---
ASSUMED CARE OF PATIENT AT 1230, PATIENT A/O 4 L OF 02, SOB WITH MINIMAL EXERTION, DIMINISHED AND WHEEZING, CURRENTLY RECEIVING IV ABX THROUGH 22 LFA PLACED ON 10/24/16 NO ISSUES NOTED WITH SITE, LUNCH AT BEDSIDE WISHES NOT TO EAT AT THIS TIME, NO OTHER ISSUES NOTED, CALL BLACK IN REACH WILL CONTINUE TO MONITOR.
[2016-10-25 13:58] VITALS: BP 122/74
[2016-10-25 23:02] VITALS: BP 102/62
[2016-10-26 01:40] VITALS: BP 116/68
--- NOTE | 2016-10-26 02:14 | Event Note ---
Event Note Event Note: At around 1 am patient started to have increased SOB and labored breathing. Patient's symptoms did not improve with nebulizers. In the exam lungs have decreased breath sounds, relatively worse than yesterday on admission, her O2 demand is now up to 6L, VA is 120, T 97.7. Patient appears anxious. Plan: -O2 supplementation as needed to keep SO2>92% -ABG stat: 7.48/34/66.2/25.8 -CTA: negative for PE -TRC nebs -IV solumedrol -Ativan 0.5 mg Plan was discussed with my resident Dr. Duran and our attending Dr. Oconnor.
--- NOTE | 2016-10-26 03:07 | NUR ---
AT 0130 PT C/O INCREASED SOB AND PT STATES "CAN'T CATCH MY BREATH".O2 SAT 90% ON 4L NC, RR 24, DENIES CHEST PAIN, HEADACHE AND DIZZINESS. HR 100. PAGED RESPIRATORY AND KINGSTON LEWIS MD. RESPIRATORY TREATEMENT GIVEN AND NOW ON 5L EMILY, AT BEDSIDE TO ASSESS. STAT ABG, CHEST XRAY ORDERED. DR. CAREY TO BEDSIDE, CHEST XRAY CANCELLED, STAT CTA, STAT IV SOLUMEDROL AND ATIVAN PO ORDERED. NEW IV #20 PLACED TO [place]. MEDS GIVEN PER ORDERS. PT TO CTA. WILL MONITOR.
--- NOTE | 2016-10-26 03:20 | CT SCAN REPORT ---
EXAMINATION: CT ANGIOGRAM OF THE CHEST WITH AND WITHOUT CONTRAST (CT PULMONARY ANGIOGRAM FOR PE) CLINICAL INFORMATION: Shortness of breath and tachycardia. COMPARISON: 10/24/2016. TECHNIQUE: Prior to contrast administration, noncontrast localization images were obtained. Subsequently, multidetector volumetric imaging was performed from the thoracic inlet to below the diaphragms following the administration of 100 mL Optiray 350 intravenous contrast. No contrast reaction reported Sagittal, coronal, and MIP oblique sagittal reformatted images were obtained on the CT workstation, uploaded to PACS, and reviewed. Total exam dose-length product 205 mGy-cm FINDINGS: QUALITY OF STUDY/CONTRAST BOLUS: Satisfactory. PULMONARY ARTERIES: No central or segmental pulmonary emboli. THORACIC AORTA: No aneurysm or dissection. LUNG: The central airways are patent. Bronchial wall thickening noted bilaterally. There is moderate centrilobular emphysema with mild paraseptal emphysema. Mild opacity noted within the right upper lobe along the major fissure. No dense consolidation. PLEURA: No pleural effusion or pneumothorax. MEDIASTINUM: The heart is normal in size. No pericardial effusion. No mediastinal lymphadenopathy. No evidence of septal bowing or right heart strain. CHEST WALL/AXILLA: No axillary or internal mammary lymphadenopathy. OSSEOUS STRUCTURES: No acute or suspicious osseous abnormality. Multilevel degenerative changes of the spine. UPPER ABDOMEN: 0.8 cm hypoattenuating lesion at the midpole of the right kidney is too small to characterize. The upper abdomen is otherwise unremarkable. No reflux of contrast into the hepatic veins to suggest elevated right heart pressures. IMPRESSION: 1. No evidence of pulmonary embolism. 2. Moderate emphysema. Bronchial wall thickening could be associated with chronic or acute small airways process. 3. Minimal right upper lobe opacity along the major fissure could represent atelectasis or early pneumonia. VTE: negative
[2016-10-26 06:16] VITALS: BP 112/60
--- NOTE | 2016-10-26 06:51 | PN- Student ---
Subjective Subjective: Source: Patient Follow-up for: COPD Exacerbation; Pneumonia I visited the patient this morning and she was sleeping in her bed without any noticable signs of respiratory distress. She mentioned that yesterday was a rough night because she couldn't breath properly and they had to taker her to a "study". Later it was confirmed with the nurse and her chart that she was taken to a CTA procedure due to a susupicion of Pulmonary Embolism. The information was given to the patient and she seemed more calm. Overall she mentioned to feel better and stated that there were no more overnight other than the above mentioned. The patient denied any fever episodes, night sweats or chills. She also denied any constipation, nausea, vomiting or diarrhea. Objective Objective: Current Medications Sig/Renetta Start time Last Medication Dose Route Stop Time Status Admin Acetaminophen 650 MG Q6P PRN 10/25 0015 AC PO Acetaminophen 1,000 MG BID PRN 10/24 2115 AC IV Acetaminophen 650 MG Q6P PRN 10/24 2100 DC PO Albuterol Sulfate 3 ML Q6 10/25 1200 AC 10/26 INH 0034 Azithromycin 500 MG DAILY 10/25 1000 AC 10/25 Dextrose/Water 250 ML IV 0928 Benzonatate 100 MG TID 10/25 1000 DC PO Benzonatate 100 MG TID 10/25 1000 CAN PO 10/26 1601 Budesonide/ 2 PUF BID 10/24 2200 AC 10/25 Formoterol Fumarate INH 2152 Carisoprodol 350 MG 4 TIMES/DAY 10/24 2200 AC 10/25 PO 2200 Ceftriaxone Sodium 1,000 MG DAILY 10/25 1000 AC 10/25 IV 0928 Enoxaparin Sodium 40 MG DAILY 10/25 1000 AC 10/25 SC 0929 Guaifenesin 600 MG Q12 10/25 1000 AC 10/25 PO 2151 Hydromorphone HCl 4 MG Q8 10/24 2200 AC 10/25 PO 2154 Ibuprofen 600 MG Q6P PRN 10/25 0015 AC PO Ipratropium [place] 2.5 ML Q6 10/25 1200 AC 10/26 INH 0034 Lorazepam 0.5 MG ONCE ONE 10/26 0215 DC 10/26 PO 10/26 021 0227 Methylprednisolone 125 MG ONCE ONE 10/26 214 DC 10/26 IV 10/26 021 0234 Methylprednisolone 40 MG Q8 10/25 599 AC 10/25 IV 2152 Oxycodone HCl 10 MG Q12 10/24 2199 AC 10/25 PO 215 Patient Medication 1 ED .[facility] ONE 10/25 1419 [place] Teaching ED 10/25 1420 Vital Signs Date Time Temp Pulse Resp B/P Pulse O2 O2 Flow FiO2 Ox Delivery Rate 10/26 615 98.6 80 20 112/60 96 Nasal 5.0L Cannula 10/26 0140 97.7 70 24 116/68 92 Nasal Cannula 10/26 0044 94 Nasal 2.0L Cannula 10/26 0000 Nasal 4.0L Cannula 10/25 2302 97.9 95 18 102/62 94 Nasal 4.0L Cannula Intake & Output 10/26 799 Intake Total 100 Output Total 350 Balance -250 Intake, Oral 100 Number 0 Bowel Movements Output, Urine 350 Physical Examination: General: No respiratory distress, alert and oriented X3 HEENT: PERRLA, EOMI, NC/AT Neck: Supple, No JVD Mouth: No central cyanosis, no pharyngeal changes Lungs: Diminished breath sounds on auscultation; more pronounced on the L-Lung CV: Normal S1, S2; No murmurs were heard GI: Normal bowel sounds; Soft abdomen Upper Limbs: No finger clubbing; Rheumatoid nodules in PIP's Neurological: Normal speech Results Results: Laboratory Tests 10/26/16 0135: pH 7.49 H, pCO2 34 L, pO2 64 L, HCO3 26, ABG O2 Sat (Measured) 93.0 L, P-50 (Temp Corrected) Y, Carboxyhemoglobin 0.7 L, O2 Concentration % 5 LPM, Temperature 97.7, O2 Delivery Method N/C, Phlebotomy Draw Site LEFT BRACHIAL 10/25/16 08: Anion Gap 9, Estimated GFR > 60, BUN/Creatinine Ratio 32.0 H, CBC w Diff NO MAN DIFF REQ, RBC 4.27, MCV 91.7, MCH 30.9, RDW 13.9, MPV 6.9 L, Gran % 81.0 H, Lymphocytes % 14.6 L, Monocytes % 3.7, Eosinophils % 0.5, Basophils % 0.2, Absolute Granulocytes 3.5, Absolute Lymphocytes 0.6 L, Absolute Monocytes 0.2, Absolute Eosinophils 0, Absolute Basophils 0, PUBS MCHC 33.7 10/24/162122: Urine Opiates Screen > 4000.00 H, Methadone Screen < 40, Barbiturate Screen < 60, Ur Phencyclidine Scrn < 6.00, Amphetamines Screen < 100, U Benzodiazepines Scrn < 85, Urine Cocaine Screen < 50, Urine Cannabis Screen 11.80 10/24/162055: Lactic Acid Cancelled 10/24/161899: Lactic Acid 1.5 10/24/161899: Anion Gap 6, Estimated GFR > 60, BUN/Creatinine Ratio 15.0, Glucose 80, Calcium 8.7, Magnesium 1.9, Total Bilirubin 0.3, AST 18, ALT 34, Alkaline Phosphatase 66 , Troponin I < 0.01, Total Protein 6.5, Albumin 3.7, Globulin 2.8, Albumin/ Globulin Ratio 1.3, CBC w Diff NO MAN DIFF REQ, RBC 4.47, MCV 91.5, MCH 30.6, RDW 14.1, MPV 6.4 L, Gran % 54.8, Lymphocytes % 35.4, Monocytes % 7.4, Eosinophils % 2.2, Basophils % 0.2, Absolute Granulocytes 3.5, Absolute Lymphocytes 2.3, Absolute Monocytes 0.5, Absolute Eosinophils 0.1, Absolute Basophils 0, PUBS MCHC 33.4 Microbiology 10/25 829 LOWER RESP: Respiratory Culture - RES 10/25 829 LOWER RESP: Gram Stain - RES 10/24 1908 BLOOD: Blood Culture - RES 10/24 1899 BLOOD: Blood Culture - RES 10/24 1809 URINE ROUT: Legionella Antigen - COMP 10/24 1809 URINE ROUT: Streptococcus pneumoniae Antigen (M - COMP Assessment/Plan Assessment: Ms. Wade is a 56 y/o patient that came in to the [facility] due to a chief complaint of respiratory difficulties. The patient has a past medical history of COPD and Rheumatoid Arthritis and is currently being evaluated due to the following symptoms: Fever, productive cough and shortness of breath. At the moment of admission the patient had stable vital signs with the exception of her O2 saturation level (88% on RA). Based on the radiological findings (L-lung patchy infiltrate),the physical exam findings (diminished L-Lung breath sounds), the stable vital signs (especially the normal temperature upon admission) and the exposure to sick contacts (which got better) it can be possible that the patient has a viral pneumonia which might have been facilitated by her COPD previous history. Since the patient is not febrile and the physical examination didn't revealed any wheezing/crackles on auscultation and the Radiological findings didn't show consolidation in the Lungs, it is less likely that the patient might have Community-Acquired Pneumonia; however, screening should be done and sputum analysis should be perform to rule out any growing bacteria. Today morning the patient was suspected of having a PE given the fact that she continued having difficulty breathing and she was at 5L/min on Supplemental Oxygen. A CTA was done and it yielded the following results: 1. No evidence of pulmonary embolism. 2. Moderate emphysema. Bronchial wall thickening could be associated with chronic or acute small airways process. 3. Minimal right upper lobe opacity along the major fissure could represent atelectasis or early pneumonia. Based on this results it was concluded that the patient didn't had any PE and this morning she was feeling better, thoguh she still on 5L/min. Plan: Problem List & Plan: 1) Shortness of Breath/Pneumonia - Continue on Oxygen supplementation via Nasal Canula at 5L/min (Goal O2 Sat of 92% at RA) - Continue Ceftriaxone (1g IV qDay) and Azithromycin (500mg IV) - Continue Solumedrol (125mg IV once a day) - Schedule a weights and measures sealer (Dr. Antonio) visit to assess status of COPD - Follow up order sputum and blood cultures to check for potential pneumonia causality - Follow up urine analysis and assess Legionella Antigen 2) Rheumatoid Arthritis - Continue the regular regimen that the patient follows 3) Normal Diet 4) DVT PPx - Administer Lovenox SubQ to prevent Deep Venous Thrombi formation due to bed- ridden status.
--- NOTE | 2016-10-26 07:17 | PN- Housestaff ---
ADAM BERNARD 10/26/16 0716: Subjective Follow-up For: - shortness of breath Subjective: Was found to be in mild distress this morning. Overnight she required increase supplemental oxygen for which CT was done to rule out PE. Negative for pulmonary embolism. Currently on 5 L oxygen with oxygen saturations in the range of 94-95%. remained afebrile overnight. The patient was extremely anxious about her prognosis. Discussed with her at length along with our team, that a handbag designer's opinion would be obtained. Review of Systems Constitutional: Reports: see HPI. Objective Last 24 Hrs of Vital Signs/I&O Vital Signs Date Time Temp Pulse Resp B/P Pulse O2 O2 Flow FiO2 Ox Delivery Rate 10/26 0616 98.6 80 20 112/60 96 Nasal 5.0L Cannula 10/26 0140 97.7 70 24 116/68 92 Nasal Cannula 10/26 0044 94 Nasal 2.0L Cannula 10/26 0000 Nasal 4.0L Cannula 10/25 2302 97.9 95 18 102/62 94 Nasal 4.0L Cannula 10/25 1816 94 Nasal 4.0L Cannula 10/25 1600 Nasal 4.0L Cannula 10/25 1358 97.6 97 18 122/74 98 Nasal 4.0L Cannula 10/25 1108 Nasal 4.0L Cannula 10/25 1105 95 Nasal 5.0L Cannula 10/25 0800 95 Nasal 4.0L Cannula Intake & Output 10/26 0800 10/26 0000 10/25 1600 Intake Total 100 450 Output Total 350 Balance -250 450 Intake, Oral 100 450 Number 0 Bowel Movements Output, Urine 350 Physical Exam General Appearance: Mild Distress Other Physical Findings: General Exam: AAOx3, Skin: No rashes, no breakdown HEENT: PERRLA, EOMI Neck: Supple, No JVD No cervical lymphadenopathy CVS: Reg Rate, Normal S1,S2, No MGR Resp: Low at entry bilaterally, no ronchi/rales Abdomen: Soft, No tenderness, Normal Bowel Sounds Neuro: Normal Speech, Strength 5/5 b/l x 4 extremities, Sensation intact, CN III -XII NL, Reflexes 2+ Extremities: No cyanosis, pedal edema Current Medications: Current Medications Sig/Renetta Start time Last Medication Dose Route Stop Time Status Admin Acetaminophen 650 MG Q6P PRN 10/25 0015 AC PO Acetaminophen 1,000 MG BID PRN 10/24 2115 AC IV Acetaminophen 650 MG Q6P PRN 10/24 2100 DC PO Albuterol Sulfate 3 ML Q6 10/25 1200 AC 10/26 INH 0034 Azithromycin 500 MG DAILY 10/25 1000 AC 10/25 Dextrose/Water 250 ML IV 0928 Benzonatate 100 MG TID 10/25 1000 DC PO Benzonatate 100 MG TID 10/25 1000 CAN PO 10/26 1601 Budesonide/ 2 PUF BID 10/24 2200 AC 10/25 Formoterol Fumarate INH 2152 Carisoprodol 350 MG 4 TIMES/DAY 10/24 2200 AC 10/25 PO 2200 Ceftriaxone Sodium 1,000 MG DAILY 10/25 1000 AC 10/25 IV 0928 Enoxaparin Sodium 40 MG DAILY 10/25 1000 AC 10/25 SC 0929 Guaifenesin 600 MG Q12 10/25 1000 AC 10/25 PO 2151 Hydromorphone HCl 4 MG Q8 10/24 2200 AC 10/26 PO 0653 Ibuprofen 600 MG Q6P PRN 10/25 0015 AC PO Ipratropium [place] 2.5 ML Q6 10/25 1200 AC 10/26 INH 0034 Lorazepam 0.5 MG ONCE ONE 10/26 0215 DC 10/26 PO 10/26 0216 0227 Methylprednisolone 125 MG ONCE ONE 10/26 0215 DC 10/26 IV 10/26 0216 0234 Methylprednisolone 40 MG Q8 10/25 0600 AC 10/25 IV 2152 Oxycodone HCl 10 MG Q12 10/24 2200 AC 10/25 PO 2153 Patient Medication 1 ED .[facility] ONE 10/25 1419 [place] Teaching ED 10/25 1420 Last 24 Hrs of Lab/Norm Results Last 24 Hrs of Labs/Mics: Laboratory Tests 10/26/16 0615: CBC w Diff Pending, WBC Pending, RBC Pending, Hgb Pending, Hct Pending, MCV Pending, MCH Pending, RDW Pending, Plt Count Pending, MPV Pending, PUBS MCHC Pending 10/26/16 0135: pH 7.49 H, pCO2 34 L, pO2 64 L, HCO3 26, ABG O2 Sat (Measured) 93.0 L, P-50 (Temp Corrected) Y, Carboxyhemoglobin 0.7 L, O2 Concentration % 5 LPM, Temperature 97.7, O2 Delivery Method N/C, Phlebotomy Draw Site LEFT BRACHIAL 10/25/16 0800: Anion Gap 9, Estimated GFR > 60, BUN/Creatinine Ratio 32.0 H, CBC w Diff NO MAN DIFF REQ, RBC 4.27, MCV 91.7, MCH 30.9, RDW 13.9, MPV 6.9 L, Gran % 81.0 H, Lymphocytes % 14.6 L, Monocytes % 3.7, Eosinophils % 0.5, Basophils % 0.2, Absolute Granulocytes 3.5, Absolute Lymphocytes 0.6 L, Absolute Monocytes 0.2, Absolute Eosinophils 0, Absolute Basophils 0, PUBS MCHC 33.7 Microbiology 10/25 829 LOWER RESP: Respiratory Culture - RES 10/25 829 LOWER RESP: Gram Stain - RES Assessment/Plan Assessment: She is a middle-aged woman with a past medical history of COPD (not on home oxygen), rheumatoid arthritis (on pain medications) is being evaluated for fever , chills, productive cough, worsening shortness of breath 1 week. Known past smoker(quit 3wks ago). At the time of admission, vitals-temperature 97.1, pulse rate 72, respiratory 24 , blood pressure 121/72, oxygen saturation 88% on room air (improved to 92% on 4 L oxygen-nasal cannula). Laboratory findings-WBC 6.5 (no leukocytosis), hemoglobin 13.6, platelets 226, sodium 141, potassium 3.7. Bicarbonate-38 ( likely metabolic compensation for COPD), normal renal function-BUN 9, serum creatinine 0.6. Normal liver function-AST 18, ALT 34, alkaline phosphatase 66, negative cardiac enzymes. Radiological findings-chest x-ray indicated patchy infiltrate on left lung base. Differential diagnosis: #1 viral pneumonia #2 community-acquired pneumonia #3 COPD exacerbation Below is the problem list and plan: #1 shortness of breath, cough- acute hypoxic respiratory failure likely from COPD exacerbation and/or pneumonia. Currently on antibiotics-azithromycin and ceftriaxone. Lower respiratory cultures-pending. Currently on intravenous Solu- Medrol 40 mg every 8, which will be decreased to 40 mg twice a day starting in the a.m. Blood cultures 2- negative so far. Rapid viral influenza A/P- negative. Urine-Legionella and strep has been added to a.m. labs. Currently on Mucinex, albuterol and ipratropium, Symbicort. Check CBC in the a.m. Bicarbonate improving. #2-pain management- currently on Soma 350 mg every 6, hydromorphone by mouth 4 mg every 8, OxyContin 10 mg by mouth twice a day. Monitor closely for sedation and respiratory depression. #3 DVT prophylaxis-Lovenox. Problem List: 1. Acute respiratory failure with hypoxia and hypercapnia 2. COPD exacerbation Pain Ratin Pain Location: None Pain Goal: Pain 4 or less Pain Plan: OxyContin Soma Tomorrow's Labs & Rationales: Basic electrolyte panel-to check for potassium. Last potassium check was 2 days ago, which was 5.0. ANALI RGAY,[facility] 10/26/16 1207: Attending MD Review Statement Attending Statement Attending MD Statement: examined this patient, discuss w/resident/PA/PERMIT TECHNICIAN, agreed w/resident/PA/PERMIT TECHNICIAN, discussed with family, reviewed EMR data (avail), discussed with nursing, discussed with case mgmt, reviewed images, amended to note Attending Assessment/Plan: Patient seen and examined, not feeling so well. Last night she desatted and required significant amount of oxygen. She is a 56-year-old female with past medical history significant for rheumatoid arthritis and COPD who was admitted with community acquired pneumonia as well as acute COPD exacerbation. Patient had a acute hypoxic respiratory failure overnight. Vital Signs Date Time Temp Pulse Resp B/P Pulse O2 O2 Flow FiO2 Ox Delivery Rate 10/26 0819 92 Nasal 4.5L Cannula 10/26 0800 93 Nasal 4.5L Cannula 10/26 0616 98.6 80 20 112/60 96 Nasal 5.0L Cannula 10/26 0140 97.7 70 24 116/68 92 Nasal Cannula 10/26 0044 94 Nasal 2.0L Cannula 10/26 0000 Nasal 4.0L Cannula 10/25 2302 97.9 95 18 102/62 94 Nasal 4.0L Cannula 10/25 1816 94 Nasal 4.0L Cannula 10/25 1600 Nasal 4.0L Cannula 10/25 1358 97.6 97 18 122/74 98 Nasal 4.0L Cannula on exam; aox3, anxious about not improving fast. cv; s1, s2, rrr. resp; dcreased bs overall. abd; soft, nt, bs+ ext; no edema Laboratory Tests 10/26 10/26 0615 0135 Blood Gas pH (7.35 - 7.45 PH) 7.49 H pCO2 (35 - 45 TORR) 34 L pO2 (80 - 100 TORR) 64 L HCO3 (21 - 28 MEQ/L) 26 ABG O2 Sat (Measured) (>96.0 %) 93.0 L P-50 (Temp Corrected) Y Carboxyhemoglobin (1.5 - 5.0 %) 0.7 L O2 Concentration % 5 LPM Temperature (97.0 - 100.0 FARH) 97.7 O2 Delivery Method N/C Hematology CBC w Diff NO MAN DIFF REQ WBC (4.8 - 10.8 /CUMM) 6.0 RBC (4.20 - 5.40 /CUMM) 4.04 L Hgb (12.0 - 16.0 G/DL) 12.5 Hct (37 - 47 %) 37.1 MCV (81.0 - 99.0 FL) 91.8 MCH (27.0 - 31.0 PG) 30.9 RDW (11.5 - 14.5 %) 14.2 Plt Count (130 - 400 /CUMM) 250 MPV (7.4 - 10.4 FL) 6.7 L Gran % (42.2 - 75.2 %) 89.2 H Lymphocytes % (20.5 - 51.1 %) 8.7 L Monocytes % (1.7 - 9.3 %) 2.0 Eosinophils % (0 - 5 %) 0.1 Basophils % (0.0 - 2.0 %) 0 L Absolute Granulocytes (1.4 - 6.5 /CUMM) 5.4 Absolute Lymphocytes (1.2 - 3.4 /CUMM) 0.5 L Absolute Monocytes (0.10 - 0.60 /CUMM) 0.1 L Absolute Eosinophils (0.0 - 0.7 /CUMM) 0 Absolute Basophils (0.0 - 0.2 /CUMM) 0 PUBS MCHC (33.0 - 37.0 G/DL) 33.6 Miscellaneous Phlebotomy Draw Site LEFT BRACHIAL A/P; Patient is a 56-year-old female with past medical history significant for rheumatoid arthritis and COPD who was admitted with community acquired pneumonia as well as acute COPD exacerbation. Patient had a acute hypoxic respiratory failure overnight. Patient currently getting treated with the IV antibiotics as well as IV steroids. Respiratory culture growing yeast. She is on IV Solu-Medrol. She is also on TRC nebs and requiring oxygen. Patient will be seen by pulmonology today. Continue all current medications. DVT prophylaxis: Lovenox. Discussed with patient and at bedside at length and tried to explain to than that sometimes it takes more time for things to improve. Will malgorzata puljeanne recommendations.
[2016-10-26 08:03] LABS: ABSOLUTE BASOPHIL COUNT 0 /CUMM (0.0-0.2); ABSOLUTE EOSINOPHIL COUNT 0 /CUMM (0.0-0.7); ABSOLUTE GRANULOCYTE CT 5.4 /CUMM (1.4-6.5); ABSOLUTE LYMPH COUNT 0.5 /CUMM (1.2-3.4); ABSOLUTE MONOCYTE COUNT 0.1 /CUMM (0.10-0.60); BASOPHIL % 0 % (0.0-2.0); EOSINOPHIL % 0.1 % (0-5); HEMATOCRIT 37.1 % (37-47); MEAN CORPUSCULAR HGB 30.9 PG (27.0-31.0); MEAN CORPUSCULAR HGB CONC 33.6 G/DL (33.0-37.0); MEAN CORPUSCULAR VOLUME 91.8 FL (81.0-99.0); MEAN PLATELET VOLUME 6.7 FL (7.4-10.4); PLATELET COUNT 250 /CUMM (130-400); RBC DISTRIBUTION WIDTH 14.2 % (11.5-14.5); RED BLOOD CELL CT 4.04 /CUMM (4.20-5.40)
[2016-10-26 08:52] LABS: GRANULOCYTE % 89.2 % (42.2-75.2)
[2016-10-26 14:36] VITALS: BP 100/60
--- NOTE | 2016-10-26 19:21 | Cons- Pulmonary ---
General Information and HPI Consulting Request Date of Consult: 10/26/16 Requested By: med team History of Present Illness: INITIAL HISORY UPON ADMISSION Patient is a 56 year old lady who has come to the ED due to worsening SOB since last monday (3-4 days ago). About a week prior she had an episode Flu-like symptoms including fever (max 102), with chills and fatigue, her daughter was sick with the same symptoms as well. Patient also reported cough which was nonproductive at the beginning but has gradually become productive with green phlegm. Patient also reported gradual worsening of shortness of breath until last Monday when she couldn't 'get a breath', she tried to see her logistician , Dr. Jaffe (in [place]) on Monday but was not successful. She tried Tylenol , nebulizers every 4 hours , which did not improve her symptoms. She saw her logistician today, got a chest x-ray, suggesting pneumonia. He recommended that patient should come to the ED. Upon arrival to the ED patient's SaO2 was 88%, she was given duoneb and was put on oxygen. She was also given a dose of IV Solu-Medrol as well as azithromycin and ceftriaxone. Currently the patient's shortness of breath has significantly improved, still kept on 4 L of oxygen through nasal cannula. Reports productive coughing, no fever or chills. However reports a pain in her back on the left lower chest wall especially when she takes a deep breath. Patient has a history of heavy smoking in the past, COPD not on home oxygen, on Symbicort. Last PFT was done a year ago. Currently smokes only once in every 3 weeks. Past history is also significant for rheumatoid arthritis, currently reports active disease with joint pain on the right hand and left big toe. She follows up with Dr. Jimenez in [place]. Patient denies abdominal pain, changes in bowel habits, urinary symptoms. she reports not having very good appetite and that she has lost weight of about 40 pounds since her diagnosis of pancreatitis a few months ago. Since he came in here she's been increasingly short-winded and was hypoxemic. Patient did get a CTA of the chest. It did show no pulmonary embolism it showed moderate to severe emphysema with significant bronchial wall thickening with minimal right upper lobe opacity along the major fissure suggestive of atelectasis versus pneumonia. Lower respiratory tract culture so far is growing mixed geovanna her influenza swab was negative her Legionella urinary and strep pneumo antigen is negative. Review of Systems Constitutional: Denies: chills, fever, weakness. EENTM: Reports: no symptoms. Cardiovascular: Denies: chest pain, palpitations. Respiratory: Reports: cough, short of breath, sputum production. GI: Denies: abdominal pain, changes in stool. Genitourinary: Reports: no symptoms. Musculoskeletal: Reports: no symptoms. Skin: Reports: no symptoms. Neurological/Psychological: Reports: no symptoms. Hematologic/Endocrine: Reports: no symptoms. Immunologic/Allergic: Reports: no symptoms. Allergies/Medications Allergies: Coded Allergies: NO KNOWN ALLERGIES (06/03/12) Home Med List: Albuterol Sulfate (Proair Hfa) 90 MCG HFA.AER.AD 2 PUF INH Q4-6 PRN PRN COPD (Reported) Ascorbic Acid (Vitamin C) (Unknown Strength) TABLET (Unknown Dose) PO DAILY SUPPLEMENT (Reported) Budesonide/Formoterol Fumarate (Symbicort 160-4.5 Mcg Inhaler) 160 MCG-4.5 MCG/ ACTUATION HFA.AER.AD 2 PUF INH BID COPD (Reported) Carisoprodol 350 MG TABLET 1 TAB PO 4XDAILY RA (Reported) Cholecalciferol (Vitamin D3) (Vitamin D) (Unknown Strength) CAPSULE (Unknown Dose) PO DAILY SUPPLEMENT (Reported) Codeine/Butalbital/Asa/Caffein (Ascomp With Codeine Capsule) 30 MG-50 MG-325 MG- 40 MG CAPSULE 1 CAP PO PRN MIGRAINES (Reported) Hydromorphone HCl 4 MG TABLET 1 TAB PO TID PAIN (Reported) Ipratropium/Albuterol Sulfate (Iprat-Albut 0.5-3(2.5) MG/3 Ml) 0.5 MG-3 MG (2.5 MG BASE)/3 ML AMPUL.NEB 1 VIAL INH Q4H PRN COPD (Reported) Oxymorphone HCl (Oxymorphone HCl ER) 20 MG TAB.ER.12H 1 TAB PO BID PAIN ( Reported) Review of Systems Review of Systems Constitutional: Reports: see HPI. Past History Travel History Traveled to [place] past 21 day No Medical History Respiratory: copd Musculoskeletal: RA Surgical History Surgical History: non-contributory Family History Relations & Conditions If Any: FATHER FH: diabetes mellitus MOTHER FH: diabetes mellitus FH: heart disease Psychosocial History Where Do You Live? Home Services at Home: None Primary Language: Kazakh Smoking Status: Current Everyday Smoker ETOH Use: denies use Illicit Drug Use: denies illicit drug use Functional Ability ADLs Independent: dressing, eating, toileting, bathing. Ambulation: independent IADLs Independent: shopping, housework, finances, food prep, telephone, transportation , medication admin. Exam & Diagnostic Data Last 24 Hrs of Vital Signs/I&O Vital Signs Date Time Temp Pulse Resp B/P Pulse O2 O2 Flow FiO2 Ox Delivery Rate 10/26 1600 Nasal 4.0L Cannula 10/26 1436 98.4 101 22 100/60 93 10/26 0819 92 Nasal 4.5L Cannula 10/26 08 93 Nasal 4.5L Cannula 10/26 0616 98.6 80 20 112/60 96 Nasal 5.0L Cannula 10/26 0140 97.7 70 24 116/68 92 Nasal Cannula 10/26 0044 94 Nasal 2.0L Cannula 10/26 0000 Nasal 4.0L Cannula 10/25 2302 97.9 95 18 102/62 94 Nasal 4.0L Cannula Intake & Output 10/26 1600 10/26 0800 10/26 0000 Intake Total 1180 100 450 Output Total 475 350 Balance 705 -250 450 Intake, IV 300 Intake, Oral 880 100 450 Number 0 Bowel Movements Output, Urine 475 350 Patient 88 lb Weight Last 48 Hrs of Labs/Norm: Laboratory Tests 10/26/16 0615: CBC w Diff NO MAN DIFF REQ, RBC 4.04 L, MCV 91.8, MCH 30.9, RDW 14.2, MPV 6.7 L, Gran % 89.2 H, Lymphocytes % 8.7 L, Monocytes % 2.0, Eosinophils % 0.1, Basophils % 0 L, Absolute Granulocytes 5.4, Absolute Lymphocytes 0.5 L, Absolute Monocytes 0.1 L, Absolute Eosinophils 0, Absolute Basophils 0, PUBS MCHC 33.6 10/26/16 0135: pH 7.49 H, pCO2 34 L, pO2 64 L, HCO3 26, ABG O2 Sat (Measured) 93.0 L, P-50 (Temp Corrected) Y, Carboxyhemoglobin 0.7 L, O2 Concentration % 5 LPM, Temperature 97.7, O2 Delivery Method N/C, Phlebotomy Draw Site LEFT BRACHIAL 10/25/16 0800: Anion Gap 9, Estimated GFR > 60, BUN/Creatinine Ratio 32.0 H, CBC w Diff NO MAN DIFF REQ, RBC 4.27, MCV 91.7, MCH 30.9, RDW 13.9, MPV 6.9 L, Gran % 81.0 H, Lymphocytes % 14.6 L, Monocytes % 3.7, Eosinophils % 0.5, Basophils % 0.2, Absolute Granulocytes 3.5, Absolute Lymphocytes 0.6 L, Absolute Monocytes 0.2, Absolute Eosinophils 0, Absolute Basophils 0, PUBS MCHC 33.7 10/24/162122: Urine Opiates Screen > 4000.00 H, Methadone Screen < 40, Barbiturate Screen < 60, Ur Phencyclidine Scrn < 6.00, Amphetamines Screen < 100, U Benzodiazepines Scrn < 85, Urine Cocaine Screen < 50, Urine Cannabis Screen 11.80 10/24/162055: Lactic Acid Cancelled Assessment/Plan Impression/Plan: Physical Exam General Appearance Alert, Oriented X3, Cooperative, No Acute Distress Skin No Rashes, No Breakdown, No Significant Lesion HEENT Atraumatic, PERRLA, EOMI, Mucous Membr. moist/pink Neck Supple, No JVD Cardiovascular Regular Rate, Normal S1, Normal S2 Lungs decreased breath sounds, expiratory wheezing bilaterally Abdomen Normal Bowel Sounds, Soft, No Tenderness Neurological Normal Speech, Strength at 5/5 X4 Ext, Normal Tone, Sensation Intact, Cranial Nerves 3-12 NL Extremities there is tenderness, erythema and edema over the second and third right metacarpophalangeal joints, as well as subcutaneous rheumatoid nodules on the palmar aspect of the right hand. there is tenderness, erythema and edema on the right 1st metatarsophalangial joint there is mild tenderness on the second left metacarpophalangeal joint. there is Vascular Normal Pulses, Pulses Symmetrical SIGNIFICANT DATA CT scan reviewed ABG reviewed 749/39/64 White count 6000 hemoglobin 12.5 with left shift IMPRESSION/PLAN This is a lady with significant smoking history with significant COPD not on home oxygen, previous history of pancreatitis, history suggestive rheumatoid arthritis not on any disease modifying agents with on and off prednisone in the past not in the recent past, now comes in with * Hypoxemic respiratory failure which is slowly improving due to acute severe COPD exacerbation most likely precipitated initially by a viral bronchitis now subsequently may have bacterial bronchitis as she does have significant mucus production * Atelectasis versus one segment infiltrate probable pneumonia patient is on appropriate antibiotics * Significant cachexia with systemic signs and symptoms suggestive of significant emphysema * History suggestive of rheumatoid arthritis on anti-inflammatory. I'm not sure whether she has rheumatoid arthritis old records needs to be obtained * Chronic pain syndrome * Previous history of pancreatitis with recent diarrhea and weight loss * Chronic pain syndrome on multiple pain medications * Ongoing significant smoking 1 than [id number] smoking history RECOMMENDATION * Repeat sputum culture * Continue intravenous steroids reduce the dose to every 12 hours * Continue ceftriaxone and azithromycin for now * Continue nebulizer therapy around the clock 4 times a day * Try to minimize ibuprofen for now * Smoking cessation counseling was done * Add vitamin D to the next blood work * Patient would need outpatient workup for osteoporosis etc. 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 In the future she would need to be discharged home on oxygen therapy with her outpatient bronchodilators which would include Spiriva, Symbicort 2 puffs twice a day and when necessary albuterol nebulizer therapy. Discussed extensively with the patient and her sister. Consult Acknowledgment - Thank you for your consult request.
[2016-10-26 22:10] VITALS: BP 110/60
[2016-10-27 06:20] VITALS: BP 104/58
--- NOTE | 2016-10-27 06:39 | PN- Housestaff ---
ADAM BERNARD 10/27/16 0636: Subjective Follow-up For: - Shortness of breath - Cough Subjective: She was anxious this morning. No complaints. No shortness of breath or chest pain. Currently on 4.5 L oxygen nasal cannula-oxygen saturation in the range of 94-98%. Remained afebrile. Does not complain of any pain. Review of Systems Constitutional: Reports: see HPI. Objective Last 24 Hrs of Vital Signs/I&O Vital Signs Date Time Temp Pulse Resp B/P Pulse O2 O2 Flow FiO2 Ox Delivery Rate 10/27 0620 98.4 102 22 104/58 98 Nasal Cannula 10/27 0000 Nasal 4.0L Cannula 10/26 2210 98.1 107 22 110/60 93 Nasal Cannula 10/26 1945 93 Nasal 4.5L Cannula 10/26 1600 Nasal 4.0L Cannula 10/26 1436 98.4 101 22 100/60 93 10/26 0819 92 Nasal 4.5L Cannula 10/26 0800 93 Nasal 4.5L Cannula Intake & Output 10/27 0800 10/27 0000 10/26 1600 Intake Total 480 1180 Output Total 475 Balance 480 705 Intake, IV 300 Intake, Oral 480 880 Output, Urine 475 Patient 88 lb Weight Physical Exam General Appearance: No Acute Distress Other Physical Findings: General Exam: AAOx3, No acute distress, Skin: No rashes, no breakdown HEENT: PERRLA, EOMI Neck: Supple, No JVD No cervical lymphadenopathy CVS: Reg Rate, Normal S1,S2, No MGR Resp: No air entry bilaterally, no ronchi/rales Abdomen: Soft, No tenderness, Normal Bowel Sounds Neuro: Normal Speech, Strength 5/5 b/l x 4 extremities, Sensation intact, CN III -XII NL, Reflexes 2+ Extremities: No cyanosis, or pedal edema Current Medications: Current Medications Sig/Renetta Start time Last Medication Dose Route Stop Time Status Admin Acetaminophen 650 MG Q6P PRN 10/25 0015 AC PO Acetaminophen 1,000 MG BID PRN 10/24 2115 AC IV Albuterol Sulfate 3 ML TID 10/26 1600 AC 10/27 INH 0627 Albuterol Sulfate 3 ML Q6 10/25 1200 DC 10/26 INH 0813 Azithromycin 500 MG DAILY 10/25 1000 AC 10/26 Dextrose/Water 250 ML IV 1006 Budesonide/ 2 PUF BID 10/24 2200 AC 10/26 Formoterol Fumarate INH 2151 Carisoprodol 350 MG 4 TIMES/DAY 10/24 220 AC 10/26 PO 2304 Ceftriaxone Sodium 1,000 MG DAILY 10/25 1000 AC 10/26 IV 1037 Enoxaparin Sodium 40 MG DAILY 10/25 1000 AC 10/26 SC 1004 Guaifenesin 600 MG Q12 10/25 1000 AC 10/26 PO 2150 Hydromorphone HCl 4 MG Q8 10/24 2200 AC 10/27 PO 0535 Ibuprofen 600 MG Q6P PRN 10/25 0015 AC PO Ipratropium [place] 2.5 ML TID 10/26 1600 AC 10/27 INH 0626 Ipratropium [place] 2.5 ML Q6 10/25 1200 DC 10/26 INH 10/26 1200 0812 Methylprednisolone 40 MG Q12 10/26 2200 AC 10/26 IV 2150 Methylprednisolone 40 MG Q8 10/25 0600 DC 10/26 IV 1445 Oxycodone HCl 10 MG Q12 10/24 2200 AC 10/26 PO 2152 Patient Medication 1 ED .STK-MED ONE 10/26 1402 [place] Teaching ED 10/26 1403 Assessment/Plan Assessment: She is a middle-aged woman with a past medical history of COPD (not on home oxygen), rheumatoid arthritis (on pain medications) is being evaluated for fever , chills, productive cough, worsening shortness of breath 1 week. Known past smoker(quit 3wks ago). Radiological findings-chest x-ray indicated patchy infiltrate on left lung base. Differential diagnosis: #1 viral pneumonia #2 community-acquired pneumonia #3 COPD exacerbation Laboratory findings in the last 24 hours- #1 lower respiratory cultures-pending #2 blood cultures-negative so far. Below is the problem list and plan: #1 shortness of breath, cough- acute hypoxic respiratory failure likely from COPD exacerbation and/or pneumonia. Currently on antibiotics-azithromycin and ceftriaxone. Lower respiratory show growth of yeast. Repeat lower respiratory cultures sent today. Currently on intravenous Solu-Medrol decreased to 40 mg twice a da. Rapid viral influenza A/P-negative. Urine-Legionella and strep - negative Currently on Mucinex, albuterol and ipratropium, Symbicort. Check BEP in the a.m. Bicarbonate improving. Geovanni Gore MD advising. #2-pain management- currently on Soma 350 mg every 6, hydromorphone by mouth 4 mg every 8, OxyContin 10 mg by mouth twice a day. Increase OxyContin to 20 mg if needed. Monitor closely for sedation and respiratory depression. #3 anxiety-Xanax 0.25 mg as needed. Reassurance. #3 DVT prophylaxis-Lovenox. Problem List: 1. Acute respiratory failure with hypoxia and hypercapnia 2. COPD exacerbation 3. Hypoxia 4. pneumonia Pain Ratin Pain Location: none Pain Goal: Pain 4 or less Pain Plan: tylenol prn Tomorrow's Labs & Rationales: no labs necessary. ANALI GRAY,[facility] 10/27/16 1139: Attending MD Review Statement Attending Statement Attending MD Statement: examined this patient, discuss w/resident/PA/GROMMET MACHINE OPERATOR, agreed w/resident/PA/GROMMET MACHINE OPERATOR, discussed with family, reviewed EMR data (avail), discussed with nursing, discussed with case mgmt, reviewed images, amended to note Attending Assessment/Plan: Patient seen and examined, feeling slightly better than yesterday but still requiring 4 L of oxygen. She's not as anxious today as she was yesterday. Vital Signs Date Time Temp Pulse Resp B/P Pulse O2 O2 Flow FiO2 Ox Delivery Rate 10/27 0800 Nasal 4.0L Cannula 10/27 0640 94 Nasal 4.5L Cannula 10/27 0620 98.4 102 22 104/58 98 Nasal Cannula 10/27 0000 Nasal 4.0L Cannula 10/26 2210 98.1 107 22 110/60 93 Nasal Cannula 10/26 1945 93 Nasal 4.5L Cannula 10/26 1600 Nasal 4.0L Cannula 10/26 1436 98.4 101 22 100/60 93 on exam; aox3, nad. cv; s1,s2, rrr. resp; decreased bs overall. abd; soft, nt, bs+ ext; no edema. Laboratory Tests 10/27 10/27 0805 0805 Chemistry Sodium (137 - 145 mmol/L) 140 Potassium (3.5 - 5.1 mmol/L) 4.7 Chloride (98 - 107 mmol/L) 101 Carbon Dioxide (22 - 30 mmol/L) 31 H Anion Gap (5 - 16) 9 BUN (7 - 17 mg/dL) 16 Creatinine (0.5 - 1.0 mg/dL) 0.5 Estimated GFR (>60 ml/min) > 60 BUN/Creatinine Ratio (7 - 25 %) 32.0 H Vit D 1,25-Dihyd Total Pending 1,25 Dihydroxy Vit D2 Pending 1,25 Dihydroxy Vit D3 Pending A/P; Patient is a 56-year-old female with past medical history significant for rheumatoid arthritis and COPD who was admitted with community acquired pneumonia as well as acute COPD exacerbation. Patient had a acute hypoxic respiratory failure overnight. Agreed with the steroid taper today. Appreciate pulmonology input. Continue current antibiotics. We'll follow-up on the cultures. We'll try to taper her oxygen but most likely she will be going home with oxygen. Continue on inhalers and TRC nebs. DVT prophylaxis: Lovenox. Possibly she could be discharged tomorrow if improves.
--- NOTE | 2016-10-27 07:23 | PN- Student ---
Subjective Subjective: Source: Patient Follow-up for: COPD Exacerbation; Pneumonia I visited Ms. Wade this morning and she was sitting down on her bed having her breakfast with her . She mentioned that she slept well and stated that there were no overnight complications to be concerned of. She mentioned that Dr. Gore visit her yesterday around 7 pm and she was very fond of him since he explained properly all of her major concerns and her current diagnosis. She had a morning walk on room air that had a duration of 5 minutes and she mentioned that she desaturated to 88%; nevertheless, her clinical presentation was only of a mild shortness of breath. She mentioned that walking helping her to feel better and she requested ambulatory pulse ox to be done more often. The patient denied any fever, night sweats, chills, palpitations, diarrhea, nausea, vomiting and constipation. The patient is in mild respiratory distress which is more pronounced on exertion but minnimal at rest. Objective Objective: Current Medications Sig/Renetta Start time Last Medication Dose Route Stop Time Status Admin Acetaminophen 650 MG Q6P PRN 10/25 0015 AC PO Acetaminophen 1,000 MG BID PRN 10/24 2115 AC IV Albuterol Sulfate 3 ML TID 10/26 1600 AC 10/27 INH 0627 Albuterol Sulfate 3 ML Q6 10/25 1200 DC 10/26 INH 0813 Alprazolam 0.25 MG ONCE ONE 10/27 1000 AC 10/27 PO 10/27 1001 0806 Azithromycin 500 MG DAILY 10/25 1000 AC 10/26 Dextrose/Water 250 ML IV 1006 Budesonide/ 2 PUF BID 10/24 2199 AC 10/26 Formoterol Fumarate INH 2151 Carisoprodol 350 MG 4 TIMES/DAY 10/24 2200 AC 10/26 PO 2304 Ceftriaxone Sodium 1,000 MG DAILY 10/25 1000 AC 10/26 IV 1037 Enoxaparin Sodium 40 MG DAILY 10/25 1000 AC 10/26 SC 1004 Guaifenesin 600 MG Q12 10/25 1000 AC 10/26 PO 2150 Hydromorphone HCl 4 MG Q8 10/24 2200 AC 10/27 PO 0535 Ibuprofen 600 MG Q6P PRN 10/25 0015 DC PO Ipratropium [place] 2.5 ML TID 10/26 1600 AC 10/27 INH 0626 Ipratropium [place] 2.5 ML Q6 10/25 1200 DC 10/26 INH 10/26 1200 0812 Methylprednisolone 40 MG Q12 10/26 2200 AC 10/26 IV 2150 Methylprednisolone 40 MG Q8 10/25 0600 DC 10/26 IV 1445 Oxycodone HCl 10 MG Q12 10/24 2200 AC 10/26 PO 2152 Patient Medication 1 ED .STK-MED ONE 10/26 1402 DC Teaching ED 10/26 1403 Vital Signs Date Time Temp Pulse Resp B/P Pulse O2 O2 Flow FiO2 Ox Delivery Rate 10/27 0540 94 Nasal 4.5L Cannula 10/27 619 98.4 102 22 104/58 98 Nasal Cannula 10/27 0000 Nasal 4.0L Cannula 10/26 2210 98.1 107 22 110/60 93 Nasal Cannula 10/26 1945 93 Nasal 4.5L Cannula 10/26 1600 Nasal 4.0L Cannula 10/26 1436 98.4 101 22 100/60 93 Intake & Output 10/27 1600 10/27 0800 10/27 0000 Intake Total 200 480 Output Total Balance 200 480 Intake, Oral 200 480 Physical Examination: General: No respiratory distress, alert and oriented X3 HEENT: PERRLA, EOMI, NC/AT Neck: Supple, No JVD Mouth: No central cyanosis, no pharyngeal changes Lungs: Diminished breath sounds on auscultation; more pronounced on the L-Lung; Late expiratory wheezes bilaterally CV: Normal S1, S2; No murmurs were heard GI: Normal bowel sounds; Soft abdomen Upper Limbs: No finger clubbing; Rheumatoid nodules in PIP's Neurological: Normal speech Results Results: Laboratory Tests 10/27/16 0805: Sodium Pending, Potassium Pending, Chloride Pending, Carbon Dioxide Pending, Anion Gap Pending, BUN Pending, Creatinine Pending, BUN/Creatinine Ratio Pending 10/27/16 0805: Vit D 1,25-Dihyd Total Pending, 1,25 Dihydroxy Vit D2 Pending, 1,25 Dihydroxy Vit D3 Pending 10/26/16 0615: CBC w Diff NO MAN DIFF REQ, RBC 4.04 L, MCV 91.8, MCH 30.9, RDW 14.2, MPV 6.7 L, Gran % 89.2 H, Lymphocytes % 8.7 L, Monocytes % 2.0, Eosinophils % 0.1, Basophils % 0 L, Absolute Granulocytes 5.4, Absolute Lymphocytes 0.5 L, Absolute Monocytes 0.1 L, Absolute Eosinophils 0, Absolute Basophils 0, PUBS MCHC 33.6 10/26/16 0135: pH 7.49 H, pCO2 34 L, pO2 64 L, HCO3 26, ABG O2 Sat (Measured) 93.0 L, P-50 (Temp Corrected) Y, Carboxyhemoglobin 0.7 L, O2 Concentration % 5 LPM, Temperature 97.7, O2 Delivery Method N/C, Phlebotomy Draw Site LEFT BRACHIAL 10/25/16 0800: Anion Gap 9, Estimated GFR > 60, BUN/Creatinine Ratio 32.0 H, CBC w Diff NO MAN DIFF REQ, RBC 4.27, MCV 91.7, MCH 30.9, RDW 13.9, MPV 6.9 L, Gran % 81.0 H, Lymphocytes % 14.6 L, Monocytes % 3.7, Eosinophils % 0.5, Basophils % 0.2, Absolute Granulocytes 3.5, Absolute Lymphocytes 0.6 L, Absolute Monocytes 0.2, Absolute Eosinophils 0, Absolute Basophils 0, [facility] MCHC 33.7 10/24/163: Urine Opiates Screen > 4000.00 H, Methadone Screen < 40, Barbiturate Screen < 60, Ur Phencyclidine Scrn < 6.00, Amphetamines Screen < 100, U Benzodiazepines Scrn < 85, Urine Cocaine Screen < 50, Urine Cannabis Screen 11.80 10/24/162055: Lactic Acid Cancelled 10/24/16 190: Lactic Acid 1.5 10/24/16 1900: Anion Gap 6, Estimated GFR > 60, BUN/Creatinine Ratio 15.0, Glucose 80, Calcium 8.7, Magnesium 1.9, Total Bilirubin 0.3, AST 18, ALT 34, Alkaline Phosphatase 66 , Troponin I < 0.01, Total Protein 6.5, Albumin 3.7, Globulin 2.8, Albumin/ Globulin Ratio 1.3, CBC w Diff NO MAN DIFF REQ, RBC 4.47, MCV 91.5, MCH 30.6, RDW 14.1, MPV 6.4 L, Gran % 54.8, Lymphocytes % 35.4, Monocytes % 7.4, Eosinophils % 2.2, Basophils % 0.2, Absolute Granulocytes 3.5, Absolute Lymphocytes 2.3, Absolute Monocytes 0.5, Absolute Eosinophils 0.1, Absolute Basophils 0, PUBS MCHC 33.4 Microbiology 10/27 712 LOWER RESP: Respiratory Culture - ORD 10/27 712 LOWER RESP: Gram Stain - ORD 10/25 829 LOWER RESP: Respiratory Culture - RES YEAST 10/25 829 LOWER RESP: Gram Stain - RES 10/24 1908 BLOOD: Blood Culture - RES 10/24 1899 BLOOD: Blood Culture - RES 10/24 1809 URINE ROUT: Legionella Antigen - COMP 10/24 1809 URINE ROUT: Streptococcus pneumoniae Antigen (M - COMP Assessment/Plan Assessment: Ms. Wade is a 56 y/o patient that came in to the [facility] due to a chief complaint of shortness of breath. The patient has a past medical history of COPD and Rheumatoid Arthritis and is currently being evaluated due to the following symptoms: Fever, productive cough and shortness of breath. At the moment of admission the patient had an O2 Saturation of 88% at RA and her vitals signs were Temp (97.1 F), Pulse (72 BPM), RR (24 BrPM), BP 121/72. Based on the radiological findings (L-lung patchy infiltrate),the physical exam findings (diminished L-Lung breath sounds), the stable vital signs (especially the normal temperature upon admission) and the exposure to sick contacts it is possible that the patient has a viral pneumonia which might have been facilitated by her COPD previous history. Yesterday morning the patient was suspected of having a PE given the fact that she continued having difficulty breathing and she was at 5L/min on Supplemental Oxygen. A CTA was done and it yielded the following results: 1. No evidence of pulmonary embolism. 2. Moderate emphysema. Bronchial wall thickening could be associated with chronic or acute small airways process. 3. Minimal right upper lobe opacity along the major fissure could represent atelectasis or early pneumonia. Based on the Pulmonology notes from Dr. Gore, the patient is currently having a COPD Exacerbation episode that was triggered by a Viral Pneumonia which eventually progressed to a Bacterial pneumonia (given the mucus production and imaging consolidations). Plan: Problem List & Plan: 1) Shortness of Breath/Pneumonia - Continue on Oxygen supplementation via Nasal Canula at 4L/min (Goal O2 Sat of 92% at RA) - Continue Ceftriaxone (1g IV qDay) and Azithromycin (500mg IV) - Continue Solumedrol (125mg IV once a day) - Schedule a licensed architect (Dr. Antonio) visit to assess status of COPD - Follow up order sputum and blood cultures to check for potential pneumonia causality - Follow up urine analysis and assess Legionella Antigen 2) Rheumatoid Arthritis - Continue the regular regimen that the patient follows 3) Normal Diet 4) DVT PPx - Administer Lovenox SubQ to prevent Deep Venous Thrombi formation due to bed- ridden status.
--- NOTE | 2016-10-27 09:48 | Discharge Summary ---
Visit Information Visit Dates Admission Date: 10/24/16 Discharge Date: 10/29/16 Hospital Course Course Attending Physician: FLORESITA BRIONES MD Primary Care Physician: JORGE LEHMAN MD Hospital Course: She is a middle-aged woman with a past medical history of COPD (not on home oxygen), rheumatoid arthritis (on pain medications) was evaluated for fever, chills, productive cough, worsening shortness of breath 1 week. Known past smoker. At the time of admission, vitals-temperature 97.1, pulse rate 72, respiratory 24 , blood pressure 121/72, oxygen saturation 88% on room air (improved to 92% on 4 L oxygen-nasal cannula). Laboratory findings-WBC 6.5 (no leukocytosis), hemoglobin 13.6, platelets 226, sodium 141, potassium 3.7. Bicarbonate-38 ( likely metabolic compensation for COPD), normal renal function-BUN 9, serum creatinine 0.6. Normal liver function-AST 18, ALT 34, alkaline phosphatase 66, negative cardiac enzymes. Radiological findings-chest x-ray indicated patchy infiltrate on left lung base. Microbiology findings- lower respiratory cultures-showed growth of Enterobacter cloaca which was sensitive to moxifloxacin, ceftriaxone. Blood cultures remained negative. CTA was negative for PE, but revealed Moderate emphysema. Differential diagnosis: #1 viral pneumonia #2 community-acquired pneumonia #3 COPD exacerbation Below is the problem list and plan: #1 shortness of breath, cough- acute hypoxic respiratory failure likely from COPD exacerbation and/or pneumonia. She was started on iv antibiotics- azithromycin and ceftriaxone, and was transitioned to PO moxifloxacin(to complete a course of 10 days) after reviewing the [facility] cultures. IV steroids were transitioned to po prednisone, during the stay in the hospital. She requred 3L supplemental oxygen to maintain the oxygen saturation above 92%. She was thus discharged home w/ a reommendation to use at this new setting, until being evaluated by PCP or manager harbor. She also received, Mucinex, albuterol and ipratropium, Symbicort. She was motivated to quit smoking, and work towards regaining her pulmonary health. #2-pain management- She was continued on on Soma 350 mg, hydromorphone 4 mg, OxyContin 20 mg. She was comfortable during the stay in the hospital. #3 DVT prophylaxis-Lovenox. Allergies: Coded Allergies: NO KNOWN ALLERGIES (06/03/12) Pertinent Lab Results: CAT - CTA CHEST-PULMONARY EMBOLISM 10/26/16- 1. No evidence of pulmonary embolism. 2. Moderate emphysema. Bronchial wall thickening could be associated with chronic or acute small airways process. 3. Minimal right upper lobe opacity along the major fissure could represent atelectasis or early pneumonia. VTE: negative RAD - XRY-PORTABLE CHEST XRAY : 10/24/16-1643 Small patchy infiltrate at the left lung base. This is new since prior exam. Right lung is clear. No pulmonary vascular congestion. No pleural effusion. The heart size is normal. The cardiac and mediastinal contours are normal. Dextroscoliosis of the upper mid thoracic spine. IMPRESSION: Small patchy left is a infiltrate. Disposition Summary Disposition Principal Diagnosis: COPD exacerbation Additional Diagnosis: Pneumonia Discharge Disposition: home or self care Discharge Instructions General Discharge Information Code Status: Full Code Patient's Diet: heart healthy Patient's Activity: as tolerated Follow-Up Instructions/Appts: #1 please follow-up with your primary care provider within 1-2 weeks of discharge. #2 please follow-up with your manager harbor/Geovanni Gore MD within 1-2 weeks of discharge. Please find the contact information of Geovanni Gore MD in your discharge paperwork. #3 please discuss with your primary care physician/meat grading machine operator about workup for osteoporosis (bone health). Medications at Discharge Discharge Medications: Continue taking these medications: Carisoprodol (Carisoprodol) 350 MG TABLET 1 Tablet ORAL 4XDAILY Qty = 120 Comments: Last Taken:10/29/16 Time:9AM Hydromorphone HCl (Hydromorphone HCl) 4 MG TABLET 1 Tablet ORAL THREE TIMES DAILY Qty = 90 Comments: Last Taken:10/29/16 Time:2AM Oxymorphone HCl (Oxymorphone HCl ER) 20 MG TAB.ER.12H 1 Tablet ORAL TWICE DAILY Qty = 60 Comments: Last Taken: Time:NOT GIVEN ON THIS ADMISSION Budesonide/Formoterol Fumarate (Symbicort 160-4.5 Mcg Inhaler) 160 MCG-4.5 MCG/ ACTUATION HFA.AER.AD 2 Puff Inhale through mouth TWICE DAILY Qty = 10 Comments: Last Taken:10/29/16 Time:9AM Ipratropium/Albuterol Sulfate (Iprat-Albut 0.5-3(2.5) MG/3 Ml) 0.5 MG-3 MG (2.5 MG BASE)/3 ML AMPUL.NEB 1 VIAL Inhale through mouth Q4H as needed for COPD Comments: Last Taken:10/29/16 Time:10AM Albuterol Sulfate (Proair Hfa) 90 MCG HFA.AER.AD 2 Puff Inhale through mouth EVERY 4-6 HOURS NEEDED as needed for COPD Comments: Last Taken:10/29/16 Time:10AM Codeine/Butalbital/Asa/Caffein (Ascomp With Codeine Capsule) 30 MG-50 MG-325 MG- 40 MG CAPSULE 1 Capsule ORAL as needed for MIGRAINES Qty = 30 Comments: Last Taken: Time:NOT GIVEN ON THIS ADMISSION Ascorbic Acid (Vitamin C) 500 MG TABLET 1 Tablet ORAL DAILY Comments: Last Taken: Time:NOT GIVEN ON THIS ADMISSION Cholecalciferol (Vitamin D3) (Vitamin D) 2,000 UNIT CAPSULE 1 Tablet ORAL DAILY Comments: Last Taken: Time:NOT GIVEN ON THIS ADMISSION Start taking the following new medications: Prednisone (Prednisone) 10 MG TABLET 1 Tablet ORAL DAILY Qty = 22 No Refills Instructions: please take 40 mg(4 tabs) on 10/30,10/31 30 mg(3 tabs) on 11/01,11/02 20 mg(2 tabs) on 11/03,11/04 10 mg(1 tab ) on 11/05,11/06. Please stop on 11/06/16. Comments: Last Taken:10/29/16 Time:9AM Tiotropium [place] (Spiriva) 18 MCG CAP.W.DEV 1 Capsule Inhale through mouth DAILY Qty = 30 No Refills Instructions: . Comments: Last Taken: Time:NOT GIVEN ON THIS ADMISSION Moxifloxacin HCl (Avelox) 400 MG TABLET 1 Tablet ORAL DAILY Days = 5 No Refills Comments: Last Taken:10/29/16 Time:9AM Copies To: FALLON GRAY,JORGE Vergara Attending MD Review Statement Documenting Attending: ANALI GRAY,FLORESITA
--- NOTE | 2016-10-27 10:38 | PN- Pulmonary ---
Subjective HPI/Critical Care Issues: Doing much better Has yellow sputum In better spirits O2 sat is 95% on 4 L Vital signs otherwise stable Slightly tachycardic Objective Current Medications: Current Medications Sig/Renetta Start time Last Medication Dose Route Stop Time Status Admin Acetaminophen 650 MG Q6P PRN 10/25 0015 AC PO Acetaminophen 1,000 MG BID PRN 10/24 2115 AC IV Albuterol Sulfate 3 ML TID 10/26 1600 AC 10/27 INH 0627 Alprazolam 0.25 MG ONCE ONE 10/27 1000 DC 10/27 PO 10/27 1001 0806 Azithromycin 500 MG DAILY 10/25 1000 AC 10/27 Dextrose/Water 250 ML IV 0953 Budesonide/ 2 PUF BID 10/24 2200 AC 10/27 Formoterol Fumarate INH 0952 Carisoprodol 350 MG 4 TIMES/DAY 10/24 2200 AC 10/27 PO 0949 Ceftriaxone Sodium 1,000 MG DAILY 10/25 1000 AC 10/27 IV 0953 Enoxaparin Sodium 40 MG DAILY 10/25 1000 AC 10/27 SC 0950 Guaifenesin 600 MG Q12 10/25 1000 AC 10/27 PO 0949 Hydromorphone HCl 4 MG Q8 10/24 2200 AC 10/27 PO 0535 Ibuprofen 600 MG Q6P PRN 10/25 0015 DC PO Ipratropium [place] 2.5 ML TID 10/26 1600 AC 10/27 INH 0626 Ipratropium [place] 2.5 ML Q6 10/25 1200 DC 10/26 INH 10/26 1200 0812 Methylprednisolone 40 MG Q12 10/26 2200 AC 10/27 IV 1007 Methylprednisolone 40 MG Q8 10/25 0600 DC 10/26 IV 1445 Oxycodone HCl 10 MG Q12 10/24 2200 AC 10/27 PO 0949 Patient Medication 1 ED .STK-MED ONE 10/26 1402 DC Teaching ED 10/26 1403 Vital Signs & I&O Last 24 Hrs of Vitals and I&O: Vital Signs Date Time Temp Pulse Resp B/P Pulse O2 O2 Flow FiO2 Ox Delivery Rate 10/27 799 Nasal 4.0L Cannula 10/27 639 94 Nasal 4.5L Cannula 10/27 619 98.4 102 22 104/58 98 Nasal Cannula 10/27 0000 Nasal 4.0L Cannula 02/08 2210 98.1 107 22 110/60 93 Nasal Cannula 10/26 1945 93 Nasal 4.5L Cannula 10/26 1600 Nasal 4.0L Cannula 10/26 1436 98.4 101 22 100/60 93 Intake & Output 10/27 1600 10/27 0800 10/27 0000 Intake Total 200 480 Output Total Balance 200 480 Intake, Oral 200 480 Impression/Plan Impression/Plan Impression/Plan: Physical Exam General Appearance Alert, Oriented X3, Cooperative, No Acute Distress Skin No Rashes, No Breakdown, No Significant Lesion HEENT Atraumatic, PERRLA, EOMI, Mucous Membr. moist/pink Neck Supple, No JVD Cardiovascular Regular Rate, Normal S1, Normal S2 Lungs decreased breath sounds, expiratory wheezing bilaterally Abdomen Normal Bowel Sounds, Soft, No Tenderness Neurological Normal Speech, Strength at 5/5 X4 Ext, Normal Tone, Sensation Intact, Cranial Nerves 3-12 NL Extremities there is tenderness, erythema and edema over the second and third right metacarpophalangeal joints, as well as subcutaneous rheumatoid nodules on the palmar aspect of the right hand. there is tenderness, erythema and edema on the right 1st metatarsophalangial joint there is mild tenderness on the second left metacarpophalangeal joint. there is Vascular Normal Pulses, Pulses Symmetrical CT chest MPRESSION: 1. No evidence of pulmonary embolism. 2. Moderate emphysema. Bronchial wall thickening could be associated with chronic or acute small airways process. 3. Minimal right upper lobe opacity along the major fissure could represent atelectasis or early pneumonia. VTE: negative DICTATED BY: KEVIN GRAY,GEOVANY DATE/TIME DICTATED:10/26/16313 IMPRESSION/PLAN This is a lady with significant smoking history with significant COPD not on home oxygen, previous history of pancreatitis, history suggestive rheumatoid arthritis not on any disease modifying agents with on and off prednisone in the past not in the recent past, now comes in with * Resolving Hypoxemic respiratory failure due to acute severe COPD exacerbation most likely precipitated initially by a viral bronchitis now subsequently may have bacterial bronchitis as she does have significant mucus production * Atelectasis versus one segment infiltrate probable pneumonia patient is on appropriate antibiotics * Significant cachexia with systemic signs and symptoms suggestive of significant emphysema * History suggestive of rheumatoid arthritis on anti-inflammatory. I'm not sure whether she has rheumatoid arthritis old records needs to be obtained * Chronic pain syndrome * Previous history of pancreatitis with recent diarrhea and weight loss * Chronic pain syndrome on multiple pain medications * Ongoing significant smoking 1 than [id number] smoking history RECOMMENDATION * Repeat sputum culture * po PRednisone 50 mg and taper over 10 days * Continue ceftriaxone and azithromycin for now, and switch to po moxi or levoquin in am * Continue nebulizer therapy around the clock 4 times a day * Try to minimize ibuprofen for now * Smoking cessation counseling was done * Patient would need outpatient workup for osteoporosis etc. through her otc clerk * Continue to wean down oxygen. In the future she would need to be discharged home on oxygen therapy with her outpatient bronchodilators which would include Spiriva, Symbicort 2 puffs twice a day and when necessary albuterol nebulizer therapy. Discussed extensively with the patient and her .
[2016-10-27 14:17] VITALS: BP 100/60
[2016-10-27 22:44] VITALS: BP 90/54
[2016-10-28 06:20] VITALS: BP 90/54
--- NOTE | 2016-10-28 07:17 | PN- Student ---
Subjective Subjective: Source: Patient Follow-up for: COPD Exacerbation; Pneumonia I visited Ms. Wade this morning and she looked refresh and stated that felt better. She mentioned that yesterday she walked with supplemental oxygen but she had to stop a few times because she felt short of breath. She reports to feel better overall and asked if she could do more physical activity during the day course. The patient denied any fever, night sweats, chills, palpitations, diarrhea, nausea, vomiting and constipation. The patient is in mild respiratory distress which is more pronounced on exertion but minnimal at rest. Objective Objective: Current Medications Sig/Renetta Start time Last Medication Dose Route Stop Time Status Admin Acetaminophen 650 MG Q6P PRN 10/25 0015 AC PO Acetaminophen 1,000 MG BID PRN 10/24 211 AC IV Albuterol Sulfate 3 ML TID 10/26 1600 AC 10/27 INH 1945 Alprazolam 0.25 MG ONCE PRN 10/27 1645 AC PO 11/03 1644 Alprazolam 0.25 MG ONCE ONE 10/27 1000 DC 10/27 PO 10/27 1001 0806 Azithromycin 500 MG DAILY 10/25 1000 AC 10/27 Dextrose/Water 250 ML IV 0953 Budesonide/ 2 PUF BID 10/24 2199 AC 10/27 Formoterol Fumarate INH 2116 Carisoprodol 350 MG 4 TIMES/DAY 10/24 2199 AC 10/27 PO 2117 Ceftriaxone Sodium 1,000 MG DAILY 10/25 1000 AC 10/27 IV 0953 Enoxaparin Sodium 40 MG DAILY 10/25 1000 AC 10/27 SC 0950 Guaifenesin 600 MG Q12 10/25 1000 AC 10/27 PO 2117 Hydromorphone HCl 4 MG Q8 10/24 2199 AC 10/28 PO 0534 Ipratropium [place] 2.5 ML TID 10/26 1600 AC 10/27 INH 1945 Methylprednisolone 40 MG Q12 10/26 2199 DC 10/27 IV 10/27 2300 2118 Oxycodone HCl 20 MG Q12 10/27 2200 AC 10/27 PO 2117 Oxycodone HCl 5 MG ONCE ONE 10/27 1700 DC 10/27 PO 10/27 1701 1656 Oxycodone HCl 10 MG Q12 10/24 2199 DC 10/27 PO 0949 Patient Medication 1 ED .STK-MED ONE 10/27 1334 LA Teaching ED 10/27 1335 Prednisone 50 MG DAILY 10/28 1000 AC PO Vital Signs Date Time Temp Pulse Resp B/P Pulse O2 O2 Flow FiO2 Ox Delivery Rate 10/28 0620 98.1 91 19 90/54 97 Nasal 4.0L Cannula 10/28 0000 Nasal 4.0L Cannula 10/27 2244 98.3 99 18 90/54 92 Nasal 3.5L Cannula 10/27 1945 97 Nasal 4.5L Cannula 10/27 1600 Nasal 4.0L Cannula 10/27 1519 96 Nasal 4.5L Cannula 10/27 1417 98.6 94 22 100/60 95 Intake & Output 10/28 1600 10/28 0800 10/28 0000 Intake Total 480 960 Output Total Balance 480 960 Intake, Oral 480 960 Physical Examination: General: No respiratory distress, alert and oriented X3 HEENT: PERRLA, EOMI, NC/AT Neck: Supple, No JVD Mouth: No central cyanosis, no pharyngeal changes Lungs: Diminished breath sounds on auscultation; no wheezes were heard CV: Normal S1, S2; No murmurs were heard GI: Normal bowel sounds; Soft abdomen Upper Limbs: No finger clubbing; Rheumatoid nodules in PIP's Neurological: Normal speech Results Results: Laboratory Tests 10/27/16 0805: Anion Gap 9, Estimated GFR > 60, BUN/Creatinine Ratio 32.0 H 10/27/16 0805: Vit D 1,25-Dihyd Total Pending, 1,25 Dihydroxy Vit D2 Pending, 1,25 Dihydroxy Vit D3 Pending 10/26/16 0615: CBC w Diff NO MAN DIFF REQ, RBC 4.04 L, MCV 91.8, MCH 30.9, RDW 14.2, MPV 6.7 L, Gran % 89.2 H, Lymphocytes % 8.7 L, Monocytes % 2.0, Eosinophils % 0.1, Basophils % 0 L, Absolute Granulocytes 5.4, Absolute Lymphocytes 0.5 L, Absolute Monocytes 0.1 L, Absolute Eosinophils 0, Absolute Basophils 0, PUBS MCHC 33.6 10/26/16 0135: pH 7.49 H, pCO2 34 L, pO2 64 L, HCO3 26, ABG O2 Sat (Measured) 93.0 L, P-50 (Temp Corrected) Y, Carboxyhemoglobin 0.7 L, O2 Concentration % 5 LPM, Temperature 97.7, O2 Delivery Method N/C, Phlebotomy Draw Site LEFT BRACHIAL Microbiology 10/28 599 LOWER RESP: Respiratory Culture - COLB 10/28 599 LOWER RESP: Gram Stain - COLB 10/27 1699 LOWER RESP: Respiratory Culture - CAN Cancelled: NUMBER OF SQUAMOUS CELLS INDICATES POOR QUALITY SPECIMEN 10/27 1699 LOWER RESP: Gram Stain - CAN Cancelled: NUMBER OF SQUAMOUS CELLS INDICATES POOR QUALITY SPECIMEN 10/25 829 LOWER RESP: Respiratory Culture - RES YEAST 10/25 829 LOWER RESP: Gram Stain - RES Assessment/Plan Assessment: Ms. Wade is a 56 y/o patient that came in to the [facility] due to a chief complaint of shortness of breath. The patient has a past medical history of COPD and Rheumatoid Arthritis and is currently being evaluated due to the following symptoms: Fever, productive cough and shortness of breath. At the moment of admission the patient had an O2 Saturation of 88% at RA and her vitals signs were Temp (97.1 F), Pulse (72 BPM), RR (24 BrPM), BP 121/72. Based on the radiological findings (L-lung patchy infiltrate),the physical exam findings (diminished L-Lung breath sounds), the stable vital signs (especially the normal temperature upon admission) and the exposure to sick contacts it is possible that the patient has a viral pneumonia which might have been facilitated by her COPD previous history. Yesterday morning the patient was suspected of having a PE given the fact that she continued having difficulty breathing and she was at 5L/min on Supplemental Oxygen. A CTA was done and it yielded the following results: 1. No evidence of pulmonary embolism. 2. Moderate emphysema. Bronchial wall thickening could be associated with chronic or acute small airways process. 3. Minimal right upper lobe opacity along the major fissure could represent atelectasis or early pneumonia. Based on the Pulmonology notes from Dr. Gore, the patient is currently having a COPD Exacerbation episode that was triggered by a Viral Pneumonia which eventually progressed to a Bacterial pneumonia (given the mucus production and imaging consolidations). Plan: Problem List & Plan: 1) Shortness of Breath/Pneumonia - Continue on Oxygen supplementation via Nasal [place] at 4L/min (Goal O2 Sat of 92% at RA) - Continue Ceftriaxone (1g IV qDay) and Azithromycin (500mg IV) - Continue Solumedrol (125mg IV once a day) - Schedule a laboratory equipment cleaner (Dr. Gore) visit to assess status of COPD 2) Rheumatoid Arthritis - Continue the regular regimen that the patient follows 3) Normal Diet 4) Schedule PT evaluation 5) Oxygen Desaturation Since the patient keeps desaturating even at high levels of oxygen supplementation (4 L/min), the exertional Oxygen saturation should be assessed to plan the tapering down of O2. - Schedule Ambulatory Pulse Ox today and assess saturation at 4 L/min
--- NOTE | 2016-10-28 08:12 | PN- Housestaff ---
ADAM BERNARD 10/28/16 0811: Subjective Follow-up For: - COPD exacerbation - Pnemonia Subjective: She was comfortable this am. She did not have any shortness of breath. Remained afebrile, and vitals were stable. Discussed with her about the plan to discharge in the am based upon the culture results from the sputum. Review of Systems Constitutional: Reports: see HPI. Objective Last 24 Hrs of Vital Signs/I&O Vital Signs Date Time Temp Pulse Resp B/P Pulse O2 O2 Flow FiO2 Ox Delivery Rate 10/28 0620 98.1 91 19 90/54 97 Nasal 4.0L Cannula 10/28 0000 Nasal 4.0L Cannula 10/27 2244 98.3 99 18 90/54 92 Nasal 3.5L Cannula 10/27 1945 97 Nasal 4.5L Cannula 10/27 1600 Nasal 4.0L Cannula 10/27 1519 96 Nasal 4.5L Cannula 10/27 1417 98.6 94 22 100/60 95 Intake & Output 10/28 1600 10/28 0800 10/28 0000 Intake Total 480 960 Output Total Balance 480 960 Intake, Oral 480 960 Physical Exam General Appearance: No Acute Distress Other Physical Findings: General Exam: AAOx3, No acute distress, Skin: No rashes, no breakdown HEENT: PERRLA, EOMI Neck: Supple, No JVD No cervical lymphadenopathy CVS: Reg Rate, Normal S1,S2, No MGR Resp: No air entry bilaterally, no ronchi/rales Abdomen: Soft, No tenderness, Normal Bowel Sounds Neuro: Normal Speech, Strength 5/5 b/l x 4 extremities, Sensation intact, CN III -XII NL, Reflexes 2+ Extremities: No cyanosis, or pedal edema Current Medications: Current Medications Sig/Renetta Start time Last Medication Dose Route Stop Time Status Admin Acetaminophen 650 MG Q6P PRN 10/25 0015 AC PO Acetaminophen 1,000 MG BID PRN 10/24 2115 AC IV Albuterol Sulfate 3 ML TID 10/26 1600 AC 10/27 INH 1945 Alprazolam 0.25 MG ONCE PRN 10/27 1645 AC PO 11/03 1644 Alprazolam 0.25 MG ONCE ONE 10/27 1000 DC 10/27 PO 10/27 1001 0806 Azithromycin 500 MG DAILY 10/25 1000 AC 10/27 Dextrose/Water 250 ML IV 952 Budesonide/ 2 PUF BID 10/24 2199 AC 10/27 Formoterol Fumarate INH 2116 Carisoprodol 350 MG 4 TIMES/DAY 10/24 2199 AC 10/27 PO 2116 Ceftriaxone Sodium 1,000 MG DAILY 10/25 1000 AC 10/27 IV 0953 Enoxaparin Sodium 40 MG DAILY 10/25 1000 AC 10/27 SC 0950 Guaifenesin 600 MG Q12 10/25 1000 AC 10/27 PO 211 Hydromorphone HCl 4 MG Q8 10/24 2199 AC 10/28 PO 0534 Ipratropium [place] 2.5 ML TID 10/26 1600 AC 10/27 INH 1945 Methylprednisolone 40 MG Q12 10/26 2199 DC 10/27 IV 10/27 2300 211 Oxycodone HCl 20 MG Q12 10/270 AC 10/27 PO 211 Oxycodone HCl 5 MG ONCE ONE 10/27 170 DC 10/27 PO 10/27 1701 1656 Oxycodone HCl 10 MG Q12 10/24 220 DC 10/27 PO 0949 Patient Medication 1 ED .STK-MED ONE 10/27 1334 DC Teaching ED 10/27 1335 Prednisone 50 MG DAILY 10/28 1000 AC PO Last 24 Hrs of Lab/Norm Results Last 24 Hrs of Labs/Mics: Microbiology 10/28 599 LOWER RESP: Respiratory Culture - COLB 10/28 599 LOWER RESP: Gram Stain - COLB 10/27 170 LOWER RESP: Respiratory Culture - CAN Cancelled: NUMBER OF SQUAMOUS CELLS INDICATES POOR QUALITY SPECIMEN 10/27 170 LOWER RESP: Gram Stain - CAN Cancelled: NUMBER OF SQUAMOUS CELLS INDICATES POOR QUALITY SPECIMEN Assessment/Plan Assessment: She is a middle-aged woman with a past medical history of COPD (not on home oxygen), rheumatoid arthritis (on pain medications) is being evaluated for fever , chills, productive cough, worsening shortness of breath 1 week. Known past smoker(quit 3wks ago). Radiological findings-chest x-ray indicated patchy infiltrate on left lung base. Differential diagnosis: #1 viral pneumonia #2 community-acquired pneumonia #3 COPD exacerbation Laboratory findings in the last 24 hours- #1 lower respiratory cultures-show growth of GNR and yeast #2 blood cultures-negative so far. Below is the problem list and plan: #1 shortness of breath, cough- acute hypoxic respiratory failure likely from COPD exacerbation and/or pneumonia. Currently on antibiotics-azithromycin and ceftriaxone, which have been changed to moxifloxacin. Lower respiratory show growth of GNR, likely Hemophilus influenzae. Repeat lower respiratory cultures sent today. Currently on intravenous Solu-Medrol decreased to 40 mg twice a da , which have been changed to po prednisone. Rapid viral influenza A/P- negative. Urine-Legionella and strep -negative Currently on Mucinex, albuterol and ipratropium, Symbicort. Check BEP in the a.m. Bicarbonate improving. Geovanni Gore MD advising. #2-pain management- currently on Soma 350 mg every 6, hydromorphone by mouth 4 mg every 8, OxyContin 10 mg by mouth twice a day. Increased OxyContin to 20 mg. Monitor closely for sedation and respiratory depression. #3 anxiety-Xanax 0.25 mg as needed. Reassurance. #3 DVT prophylaxis-Lovenox. Problem List: 1. Acute respiratory failure with hypoxia and hypercapnia 2. COPD exacerbation 3. Pneumonia Pain Ratin Pain Location: back Pain Goal: Pain 4 or less Pain Plan: oxycontin Tomorrow's Labs & Rationales: no labs necessary. pt to be discharged. ANALI GRAY,[facility] 10/28/16 1242: Attending MD Review Statement Attending Statement Attending MD Statement: examined this patient, discuss w/resident/PA/APPLE SORTER, agreed w/resident/PA/APPLE SORTER, discussed with family, reviewed EMR data (avail), discussed with nursing, discussed with case mgmt, reviewed images, amended to note Attending Assessment/Plan: Patient Seen and examined, overall improving. She was still on 4 L of oxygen but saturating 97%. We told patient's nurse to try to taper her oxygen if she is able to tolerate. Vital Signs Date Time Temp Pulse Resp B/P Pulse O2 O2 Flow FiO2 Ox Delivery Rate 10/28 1235 100/50 10/28 0913 96 Nasal 4.0L Cannula 10/28 0800 Nasal 4.0L Cannula 10/28 0620 98.1 91 19 90/54 97 Nasal 4.0L Cannula 10/28 0000 Nasal 4.0L Cannula 10/27 2244 98.3 99 18 90/54 92 Nasal 3.5L Cannula 10/27 1945 97 Nasal 4.5L Cannula 10/27 1600 Nasal 4.0L Cannula 10/27 1519 96 Nasal 4.5L Cannula 10/27 1417 98.6 94 22 100/60 95 on exam; aox3, nad. cv; s1,s2, rrr. resp; decresaed bs overall. abd; soft, nt, bs+ ext; no edema. no labs. A/P; Patient is a 56-year-old female with past medical history significant for rheumatoid arthritis and COPD who was admitted with community acquired pneumonia as well as acute COPD exacerbation. Patient went into acute hypoxic respiratory during the hospital course. Sputum culture now growing gram-negative rods. We discussed with pulmonology, will switch antibiotics to by mouth moxifloxacin and follow-up on the final sputum culture. Agreed with switching her to by mouth prednisone with a taper. Next line continue TRC nebs and try to taper O2 as she can tolerate. Antibiotics should be adjusted once final cultures and sensitivities are back. Continue all other current medications. DVT px: Lovenox And patient is a possible discharge tomorrow with home oxygen.
[2016-10-28] MEDS ORDERED: SPIRIVA18 MCG INH (08:24)
[2016-10-28] MEDS ORDERED: AUGMENTIN 875-1 EACH PO (08:25)
--- NOTE | 2016-10-28 08:28 | Patient Discharge Instructions ---
Discharge Instructions General Discharge Information You were seen/treated for: -Pneumonia -COPD exacerbation Watch for these problems: #1 shortness of breath, fever, cough #2 chest pain, palpitations Special Instructions: #1 please follow-up with your primary care provider within 1-2 weeks of discharge. #2 please follow-up with your automatic buffer/Geovanni Gore MD within 1-2 weeks of discharge. Please find the contact information of Geovanni Gore MD in your discharge paperwork. #3 please discuss with your primary care physician/auger operator about workup for osteoporosis (bone health). Acute Coronary Syndrome Inclusion Criteria At DC or during hospital stay patient has or had the following: ACS DIAGNOSIS No Discharge Core Measures Meds if any: Prescribed or Continued at Discharge Meds if any: NOT Prescribed or Continued at Discharge Congestive Heart Failure Inclusion Criteria At DC or during hospital stay patient has or had the following: CHF DIAGNOSIS No Discharge Core Measures Meds if any: Prescribed or Continued at Discharge Meds if any: NOT Prescribed or Continued at Discharge Cerebrovascular accident Inclusion Criteria At DC or during hospital stay patient has or had the following: CVA/TIA Diagnosis No Discharge Core Measures Meds if any: Prescribed or Continued at Discharge Meds if any: NOT Prescribed or Continued at Discharge Venous thromboembolism Inclusion Criteria VTE Diagnosis No VTE Type NONE VTE Confirmed by (Test) NONE Discharge Core Measures - Per Current guidelines, there needs to be overlap - treatment for the first 5 days of Warfarin therapy. - If discharged on Warfarin prior to 5 days of - overlap therapy, the patient will need to be - assessed for post discharge needs including - *Post discharge parental anticoagulation - *Warfarin and/or parental anticoagulation education - *Follow up date to check INR post discharge At least 5 days overlap therapy as Inpatient No Meds if any: Prescribed or Continued at Discharge Note: Overlap Therapy is Warfarin and Anticoagulant Meds if any: NOT Prescribed or Continued at Discharge
[2016-10-28] MEDS ORDERED: PREDNISONE10 M2 PO (08:35)
--- NOTE | 2016-10-28 10:45 | PN- Pulmonary ---
Subjective HPI/Critical Care Issues: Much improved Afebrile Wheezing seems to have resolved No other complaints Sputum culture does grow gram-negative rods so far patient is high-risk for Pseudomonas No cough no wheezing this morning Oxygen saturation 97% on 4 L which is improving Blood work from before reviewed no new blood work noted Sputum Gram stain shows gram-negative rods Objective Current Medications: Current Medications Sig/Renetta Start time Last Medication Dose Route Stop Time Status Admin Acetaminophen 650 MG Q6P PRN 10/25 0015 AC PO Acetaminophen 1,000 MG BID PRN 10/24 2115 AC IV Albuterol Sulfate 3 ML TID 10/26 1600 AC 10/28 INH 0910 Alprazolam 0.25 MG ONCE PRN 10/27 1645 AC PO 11/03 1644 Amoxicillin/ 875 MG Q12 10/28 1000 DC Clavulanate Potassium PO Azithromycin 500 MG DAILY 10/25 1000 DC 10/27 Dextrose/Water 250 ML IV 0953 Budesonide/ 2 PUF BID 10/24 2200 AC 10/28 Formoterol Fumarate INH 1013 Carisoprodol 350 MG 4 TIMES/DAY 10/24 2200 AC 10/28 PO 1012 Ceftriaxone Sodium 1,000 MG DAILY 10/25 1000 DC 10/27 IV 0953 Enoxaparin Sodium 40 MG DAILY 10/25 1000 AC 10/28 SC 1013 Guaifenesin 600 MG Q12 10/25 1000 AC 10/28 PO 1012 Hydromorphone HCl 4 MG Q8 10/24 2200 AC 10/28 PO 0534 Ipratropium [place] 2.5 ML TID 10/26 1600 AC 10/28 INH 0910 Methylprednisolone 40 MG Q12 10/26 2200 DC 10/27 IV 10/27 2300 2118 Moxifloxacin HCl 400 MG DAILY 10/28 1009 AC PO Oxycodone HCl 20 MG Q12 10/27 2200 AC 10/28 PO 1023 Oxycodone HCl 5 MG ONCE ONE 10/27 1700 DC 10/27 PO 10/27 1701 1656 Oxycodone HCl 10 MG Q12 10/24 2200 DC 10/27 PO 0949 Patient Medication 1 ED .STK-MED ONE 10/27 1334 DC Teaching ED 10/27 1335 Prednisone 50 MG DAILY 10/28 1000 AC 10/28 PO 1012 Vital Signs & I&O Last 24 Hrs of Vitals and I&O: Vital Signs Date Time Temp Pulse Resp B/P Pulse O2 O2 Flow FiO2 Ox Delivery Rate 10/28 0913 96 Nasal 4.0L Cannula 10/28 08 Nasal 4.0L Cannula 10/28 0620 98.1 91 19 90/54 97 Nasal 4.0L Cannula 10/28 0000 Nasal 4.0L Cannula 10/27 2244 98.3 99 18 90/54 92 Nasal 3.5L Cannula 10/27 1945 97 Nasal 4.5L Cannula 10/27 1600 Nasal 4.0L Cannula 10/27 1519 96 Nasal 4.5L Cannula 10/27 1417 98.6 94 22 100/60 95 Intake & Output 10/28 1600 10/28 0800 10/28 0000 Intake Total 480 960 Output Total Balance 480 960 Intake, Oral 480 960 Impression/Plan Impression/Plan Impression/Plan: Physical Exam General Appearance Alert, Oriented X3, Cooperative, No Acute Distress Skin No Rashes, No Breakdown, No Significant Lesion HEENT Atraumatic, PERRLA, EOMI, Mucous Membr. moist/pink Neck Supple, No JVD Cardiovascular Regular Rate, Normal S1, Normal S2 Lungs decreased breath sounds, expiratory wheezing bilaterally Abdomen Normal Bowel Sounds, Soft, No Tenderness Neurological Normal Speech, Strength at 5/5 X4 Ext, Normal Tone, Sensation Intact, Cranial Nerves 3-12 NL Extremities there is tenderness, erythema and edema over the second and third right metacarpophalangeal joints, as well as subcutaneous rheumatoid nodules on the palmar aspect of the right hand. there is tenderness, erythema and edema on the right 1st metatarsophalangial joint there is mild tenderness on the second left metacarpophalangeal joint. there is Vascular Normal Pulses, Pulses Symmetrical CT chest MPRESSION: 1. No evidence of pulmonary embolism. 2. Moderate emphysema. Bronchial wall thickening could be associated with chronic or acute small airways process. 3. Minimal right upper lobe opacity along the major fissure could represent atelectasis or early pneumonia. VTE: negative DICTATED BY: KEVIN GRAY,GEOVANY DATE/TIME DICTATED:10/26/16313 IMPRESSION/PLAN This is a lady with significant smoking history with significant COPD not on home oxygen, previous history of pancreatitis, history suggestive rheumatoid arthritis not on any disease modifying agents with on and off prednisone in the past not in the recent past, now comes in with * Resolving Hypoxemic respiratory failure due to acute severe COPD exacerbation most likely precipitated initially by a viral bronchitis now subsequently may have bacterial bronchitis as she does have significant mucus production. Sputum growing gram negative rods with chest CT suggestive of probable one segment pneumonia versus atelectasis * Significant cachexia with systemic signs and symptoms suggestive of significant emphysema * History suggestive of rheumatoid arthritis on anti-inflammatory. I'm not sure whether she has rheumatoid arthritis old records needs to be obtained * Chronic pain syndrome * Previous history of pancreatitis with recent diarrhea and weight loss * Chronic pain syndrome on multiple pain medications * Ongoing significant smoking 1 than [id number] smoking history RECOMMENDATION * po PRednisone 50 mg and taper over 10 days * Start moxifloxacin by mouth her levofloxacin till the sputum cultures final. And if it's a sensitive organism can be switched to an narrower spectrum antibiotics upon discharge * Patient is stable to be discharged on oxygen tomorrow * Continue nebulizer therapy around the clock 4 times a day, as needed and can be discharged on nebulizer therapy. Patient has a nebulizer at home * Try to minimize ibuprofen for now * Smoking cessation counseling was done * Patient would need outpatient workup for osteoporosis etc. through her trawl net maker * Continue to wean down oxygen. In the future she would need to be discharged home on oxygen therapy with her outpatient bronchodilators which would include Spiriva, Symbicort 2 puffs twice a day and when necessary albuterol nebulizer therapy. Discussed extensively with the patient and her .
[2016-10-28 12:00] VITALS: BP 100/50
[2016-10-28 12:35] VITALS: BP 100/50
[2016-10-28 14:23] VITALS: BP 118/70
[2016-10-28 21:48] VITALS: BP 100/60
[2016-10-29 06:00] VITALS: BP 100/62
--- NOTE | 2016-10-29 08:29 | PN- Housestaff ---
Subjective Follow-up For: #1 COPD exacerbation #2 community-acquired pneumonia #3 rheumatoid arthritis Subjective: She was comfortable this morning. Did not have any difficulty breathing, chest pain or palpitations. As per the nurse, oxygen saturation was 88% on room air. Remained stable overnight, afebrile and vitals were stable. Remain on 3 L oxygen. Discussed with the patient at length about the use of oxygen, follow up with primary care provider and or gre tutor within 1 week. Await the arrangement for oxygen. Review of Systems Constitutional: Reports: see HPI. Objective Last 24 Hrs of Vital Signs/I&O Vital Signs Date Time Temp Pulse Resp B/P Pulse O2 O2 Flow FiO2 Ox Delivery Rate 10/29 0600 98.4 87 18 100/62 96 Nasal Cannula 10/29 0000 92 Nasal 3.5L Cannula 10/28 2148 98.3 92 20 100/60 92 10/28 2044 94 Nasal 4.0L Cannula 10/28 1600 Nasal 3.5L Cannula 10/28 1423 98.4 91 18 118/70 93 Nasal 3.5L Cannula 10/28 1235 100/50 10/28 1200 100/50 10/28 0913 96 Nasal 4.0L Cannula Intake & Output 10/29 1600 10/29 0800 10/29 0000 Intake Total 300 600 Output Total Balance 300 600 Intake, Oral 300 600 Number 0 Bowel Movements Physical Exam General Appearance: No Acute Distress Current Medications: Current Medications Sig/Renetta Start time Last Medication Dose Route Stop Time Status Admin Acetaminophen 650 MG Q6P PRN 10/25 0015 AC PO Acetaminophen 1,000 MG BID PRN 10/24 2115 AC IV Albuterol Sulfate 3 ML TID 10/26 1600 AC 10/28 INH 2040 Alprazolam 0.25 MG AT BEDTIME NEED.. 10/28 2345 AC 10/28 PO 11/04 2333 2350 Alprazolam 0.25 MG ONCE PRN 10/27 1645 DC PO 11/03 1644 Amoxicillin/ 875 MG Q12 10/28 1000 DC Clavulanate Potassium PO Budesonide/ 2 PUF BID 10/24 2199 AC 10/28 Formoterol Fumarate INH 2112 Carisoprodol 350 MG 4 TIMES/DAY 10/24 2199 AC 10/28 PO 211 Enoxaparin Sodium 40 MG DAILY 10/25 1000 AC 10/28 SC 1013 Guaifenesin 600 MG Q12 10/25 1000 AC 10/28 PO 2112 Hydromorphone HCl 4 MG Q8 10/24 2200 AC 10/29 PO 0601 Ipratropium [place] 2.5 ML TID 10/26 1600 AC 10/28 INH 2040 Moxifloxacin HCl 400 MG DAILY 10/28 1009 AC 10/28 PO 1348 Oxycodone HCl 20 MG Q12 10/27 2200 AC 10/28 PO 211 Prednisone 50 MG DAILY 10/28 1000 AC 10/28 PO 1012 Last 24 Hrs of Lab/Norm Results Last 24 Hrs of Labs/Mics: Microbiology 10/28 844 LOWER RESP: Respiratory Culture - CAN Cancelled: NUMBER OF SQUAMOUS CELLS INDICATES POOR QUALITY SPECIMEN 10/28 844 LOWER RESP: Gram Stain - CAN Cancelled: NUMBER OF SQUAMOUS CELLS INDICATES POOR QUALITY SPECIMEN Assessment/Plan Assessment: She is a middle-aged woman with a past medical history of COPD (not on home oxygen), rheumatoid arthritis (on pain medications) is being evaluated for fever , chills, productive cough, worsening shortness of breath 1 week. Known past smoker(quit 3wks ago). Radiological findings-chest x-ray indicated patchy infiltrate on left lung base. Differential diagnosis: #1 viral pneumonia #2 community-acquired pneumonia #3 COPD exacerbation Laboratory findings in the last 24 hours- #1 lower respiratory cultures-show growth of Enterobacter cloaca which is sensitive to moxifloxacin (as per senior laboratory technician), ceftriaxone, Bactrim. #2 blood cultures-negative so far. Below is the problem list and plan: #1 shortness of breath, cough- acute hypoxic respiratory failure likely from COPD exacerbation and/or pneumonia. Currently on antibiotics-azithromycin and ceftriaxone, which have been changed to moxifloxacin. Lower respiratory show growth of GNR, Enterobacter cloaca. Repeat lower respiratory cultures sent today. Continue by mouth prednisone. Rapid viral influenza A/P-negative. Urine -Legionella and strep -negative Currently on Mucinex, albuterol and ipratropium , Symbicort. Check BEP in the a.m. Bicarbonate improving. Geovanni Gore MD advising. #2-pain management- currently on Soma 350 mg every 6, hydromorphone by mouth 4 mg every 8, OxyContin 10 mg by mouth twice a day. Increased OxyContin to 20 mg. Monitor closely for sedation and respiratory depression. #3 anxiety-Xanax 0.25 mg as needed. Reassurance. #3 DVT prophylaxis-Lovenox. Problem List: 1. Acute respiratory failure with hypoxia and hypercapnia 2. COPD exacerbation 3. Hypoxia 4. Pneumonia 5. Rheumatoid arthritis Pain Ratin Pain Location: None Pain Goal: Pain 4 or less Pain Plan: OxyContin 20 mg twice a day Tylenol 650 mg every 6 when necessary Dilaudid 4 mg every 8 Soma 350 mg every 6 Tomorrow's Labs & Rationales: no labs necessary. pt to be discharged.
--- NOTE | 2016-10-29 08:34 | PN- Student ---
Subjective Subjective: Source: Patient Follow-up for: COPD Exacerbation; Pneumonia I visited the patient this morning and she was sitting in her bed having breakfast. The patient mentioned that she slept well but that it took her some time to catch her sleep since she wasn't feeling well; she attributed her discomfort to the steroid therapy. However, she feels refreshed and ready to go home. She asked questions about the oxygen management and proper education was given. Patient still at 3.5 L/min via nasal canula. The patient denied any fever, night sweats, chills, palpitations, diarrhea, nausea, vomiting and constipation. The patient is in mild respiratory distress which is more pronounced on exertion but minnimal at rest. Objective Objective: Current Medications Sig/Renetta Start time Last Medication Dose Route Stop Time Status Admin Acetaminophen 650 MG Q6P PRN 10/25 0015 AC PO Acetaminophen 1,000 MG BID PRN 10/24 2114 AC IV Albuterol Sulfate 3 ML TID 10/26 1600 AC 10/28 INH 2040 Alprazolam 0.25 MG AT BEDTIME NEED.. 10/28 2345 AC 10/28 PO 11/04 2333 2350 Alprazolam 0.25 MG ONCE PRN 10/27 1645 DC PO 11/03 1644 Amoxicillin/ 875 MG Q12 10/28 1000 DC Clavulanate Potassium PO Budesonide/ 2 PUF BID 10/24 2199 AC 10/28 Formoterol Fumarate INH 2112 Carisoprodol 350 MG 4 TIMES/DAY 10/24 2199 AC 10/28 PO 211 Enoxaparin Sodium 40 MG DAILY 10/25 1000 AC 10/28 SC 1013 Guaifenesin 600 MG Q12 10/25 1000 AC 10/28 PO 2112 Hydromorphone HCl 4 MG Q8 10/24 220 AC 10/29 PO 0601 Ipratropium [place] 2.5 ML TID 10/26 1600 AC 10/28 INH 2040 Moxifloxacin HCl 400 MG DAILY 10/28 1009 AC 10/28 PO 1348 Oxycodone HCl 20 MG Q12 10/27 2199 AC 10/28 PO 2112 Prednisone 50 MG DAILY 10/28 1000 AC 10/28 PO 1012 Vital Signs Date Time Temp Pulse Resp B/P Pulse O2 O2 Flow FiO2 Ox Delivery Rate 02/11 0600 98.4 87 18 100/62 96 Nasal Cannula 10/29 0000 92 Nasal 3.5L Cannula 10/28 2148 98.3 92 20 100/60 92 10/28 2044 94 Nasal 4.0L Cannula 10/28 1600 Nasal 3.5L Cannula 10/28 1423 98.4 91 18 118/70 93 Nasal 3.5L Cannula 10/28 1235 100/50 10/28 1200 100/50 10/28 0913 96 Nasal 4.0L Cannula Intake & Output 10/29 1600 10/29 0800 10/29 0000 Intake Total 300 600 Output Total Balance 300 600 Intake, Oral 300 600 Number 0 Bowel Movements Physical Examination: General: No respiratory distress, alert and oriented X3 HEENT: PERRLA, EOMI, NC/AT Neck: Supple, No JVD Mouth: No central cyanosis, no pharyngeal changes Lungs: Diminished breath sounds on auscultation; mild bibasilar crackles CV: Normal S1, S2; No murmurs were heard GI: Normal bowel sounds; Soft abdomen Upper Limbs: No finger clubbing; Rheumatoid nodules in PIP's Neurological: Normal speech Results Results: Laboratory Tests 10/27/16804: Anion Gap 9, Estimated GFR > 60, BUN/Creatinine Ratio 32.0 H 10/27/16 0805: Vit D 1,25-Dihyd Total Pending, 1,25 Dihydroxy Vit D2 Pending, 1,25 Dihydroxy Vit D3 Pending Microbiology 10/28 844 LOWER RESP: Respiratory Culture - CAN Cancelled: NUMBER OF SQUAMOUS CELLS INDICATES POOR QUALITY SPECIMEN 10/28 844 LOWER RESP: Gram Stain - CAN Cancelled: NUMBER OF SQUAMOUS CELLS INDICATES POOR QUALITY SPECIMEN 10/27 1699 LOWER RESP: Respiratory Culture - CAN Cancelled: NUMBER OF SQUAMOUS CELLS INDICATES POOR QUALITY SPECIMEN 10/27 1699 LOWER RESP: Gram Stain - CAN Cancelled: NUMBER OF SQUAMOUS CELLS INDICATES POOR QUALITY SPECIMEN Assessment/Plan Assessment: Ms. Wade is a 56 y/o patient that came in to the [facility] due to a chief complaint of shortness of breath. The patient has a past medical history of COPD and Rheumatoid Arthritis and is currently being evaluated due to the following symptoms: Fever, productive cough and shortness of breath. At the moment of admission the patient had an O2 Saturation of 88% at and her vitals signs were Temp (97.1 F), Pulse (72 BPM), RR (24 BrPM), BP 121/72. Based on the radiological findings (L-lung patchy infiltrate),the physical exam findings (diminished L-Lung breath sounds), the stable vital signs (especially the normal temperature upon admission) and the exposure to sick contacts it is possible that the patient has a viral pneumonia which might have been facilitated by her COPD previous history. Based on the Pulmonology notes from Dr. Gore, the patient is currently having a COPD Exacerbation episode that was triggered by a Viral Pneumonia which eventually progressed to a Bacterial pneumonia (given the mucus production and imaging consolidations). The patient has been stable for the last two days and hasn't had any complications. She still desaturating without oxygen supplementation but with appropriate home oxygen she is ready for discharge today. Plan: Problem List & Plan: 1) Shortness of Breath/Pneumonia - Continue on Oxygen supplementation via Nasal Canula at 3.5L/min (Goal O2 Sat of 92% at RA) - Start the patient on Bactrim to cover for E. cloacae - Continue Solumedrol (125mg PO once a day) 2) Rheumatoid Arthritis - Continue the regular regimen that the patient follows 3) Normal Diet 4) Patient is ready for discharge; set all the petinent drugs in PO and schedule Home Oxygen tank delivery. supplementation (4 L/min), the exertional Oxygen saturation should be assessed to plan the tapering down of O2. - Schedule Ambulatory Pulse Ox today and assess saturation at 4 L/min to plan the tapering down of O2. - Schedule Ambulatory Pulse Ox today and assess saturation at 4 L/min
--- NOTE | 2016-10-29 10:06 | NUR ---
PT SATURATING 93% ON 3LITERS. WITHOUT O2, AMBULATORY SATURATION 88%.
[2016-10-29] MEDS ORDERED: PREDNISONE10 M2 PO ×2 (10:30→10:38)
[2016-10-29] MEDS ORDERED: SPIRIVA18 MCG INH (10:39)
[2016-10-29] MEDS ORDERED: AVELOX400 M1 PO (11:19)
--- NOTE | 2016-10-29 14:31 | PN- Att Addend ---
Attending MD Review Statement Attending Statement Attending MD Statement: examined this patient, discuss w/resident/PA/STAFF ACCOUNTANT, agreed w/resident/PA/STAFF ACCOUNTANT, reviewed EMR data (avail), discussed w/nursing Attending Assessment/Plan: Vital Signs Date Time Temp Pulse Resp B/P Pulse O2 O2 Flow FiO2 Ox Delivery Rate 10/29 1024 93 Nasal 3.0L Cannula 10/29 799 96 Nasal 3.0L Cannula 10/29 0600 98.4 87 18 100/62 96 Nasal Cannula 10/29 0000 92 Nasal 3.5L Cannula 10/28 2148 98.3 92 20 100/60 92 10/28 2044 94 Nasal 4.0L Cannula 10/28 1600 Nasal 3.5L Cannula Intake & Output 10/29 1600 10/29 0800 10/29 0000 Intake Total 300 600 Output Total Balance 300 600 Intake, Oral 300 600 Number 0 Bowel Movements Resp culture grew Enterbacter cloacae A/[id number]-old female with past medical history significant for rheumatoid arthritis and COPD who was admitted with community acquired pneumonia as well as acute COPD exacerbation. Patient went into acute hypoxic respiratory during the hospital course. Sputum culture now growing gram-negative rods- Enterobacter cloacae- senstive to ceftriaxone and ciprofloxacin. d/w pulomonology and pt will be dced on oral moxifloxacin. d/w pt the care plan. pt also will be dced on home oxygen after that is arranged by case management.
== END 2016-10-29 14:57 | DRG 177 ==
LOC: ENRESERVDT → ENRESERVTM → ERH 16:19 → 2NA 20:28 → ERHI 20:28 → ENPENDDIS 20:28 → 2NA 21:58
PROVIDERS: Internal Medicine; Internal Medicine Endocrinology, Diabetes & Metabolism; Physician Assistant Surgical; ADMIT Student in an Organized Health Care Education/Training Program
DX: J15.6 Pneumonia due to other Gram-negative bacteria (principal); J96.01 Acute respiratory failure with hypoxia; R64 Cachexia; J44.1 Chronic obstructive pulmonary disease with (acute) exacerbation; M06.9 Rheumatoid arthritis, unspecified; F17.210 Nicotine dependence, cigarettes, uncomplicated
CPT/HCPCS: 2NASP; 80307; 82436; 82652; 87040; 87070; 87071; 87449; 87450; 87804; 87804-59; 93005; 93010; 96374; 96375; 99291; J0131; J0456; J0696; J1650; J2920; J2930; J3490; J7060; J7512

== ENCOUNTER 2017-11-19 22:24 | Inpatient (IN) | payer OTHER ==
[~2017-11-19] VITALS: Ht 152.4 cm; Wt 43.1 kg
[~2017-11-19 22:24] MED LIST: ASCOMP WITH CO1 EACH PO; AUGMENTIN 875-1 EACH PO; AVELOX400 M1 PO; CARISOPRODOL350 M1 PO; HYDROMORPHONE HC4 M1 PO; IPRAT-ALBUT 0.5-3 ML INH; OXYMORPHONE HCL20 MG PO; PREDNISONE10 M2 PO; PROAIR HFA8.5 GM INH; SPIRIVA18 MCG INH; SYMBICORT 16010.2 GM INH; VITAMIN C500 M8 PO; VITAMIN D2000 UNIT PO
--- NOTE | 2017-11-19 22:50 | ED DYSPNEA/ASTHMA COMPLAINT ---
History of Present Illness General Chief Complaint: General Adult Stated Complaint: "I CANT BREATH", COUGHING Source: patient Exam Limitations: no limitations Vital Signs & Intake/Output Vital Signs & Intake/Output Vital Signs Date Time Temp Pulse Resp B/P B/P Pulse O2 O2 Flow FiO2 Mean Ox Delivery Rate 11/20 0408 98.4 102 22 114/60 91 11/20 0354 Nasal 3.0L Cannula 11/20 0331 97.6 96 22 112/60 94 Nasal 3.0L Cannula 11/20 0214 97.9 94 20 88/50 94 Nasal 3.0L Cannula 11/20 0207 92 Nasal 3.0L Cannula 11/19 2306 98 Nasal 2.0L Cannula 11/19 2305 93 22 99 Aerosol 8L Mask 11/19 2259 93 Nasal 2.0L Cannula 11/20 2227 98.9 108 24 130/73 88 Room Air Allergies Coded Allergies: NO KNOWN ALLERGIES (06/03/12) Reconcile Medications Albuterol Sulfate (Proair Hfa) 90 MCG HFA.AER.AD 2 PUF INH Q4-6 PRN PRN COPD (Reported) Ascorbic Acid (Vitamin C) 500 MG TABLET 1 TAB PO DAILY SUPPLEMENT (Reported) Budesonide/Formoterol Fumarate (Symbicort 160-4.5 Mcg Inhaler) 160 MCG-4.5 MCG/ ACTUATION HFA.AER.AD 2 PUF INH BID COPD (Reported) Carisoprodol 350 MG TABLET 1 TAB PO 4XDAILY RA (Reported) Cholecalciferol (Vitamin D3) (Vitamin D) 2,000 UNIT CAPSULE 1 TAB PO DAILY SUPPLEMENT (Reported) Codeine/Butalbital/Asa/Caffein (Ascomp With Codeine Capsule) 30 MG-50 MG-325 MG- 40 MG CAPSULE 1 CAP PO PRN MIGRAINES (Reported) Hydromorphone HCl 4 MG TABLET 1 TAB PO TID PAIN (Reported) Ipratropium/Albuterol Sulfate (Iprat-Albut 0.5-3(2.5) MG/3 Ml) 0.5 MG-3 MG (2.5 MG BASE)/3 ML AMPUL.NEB 1 VIAL INH Q4H PRN COPD (Reported) Oxymorphone HCl (Oxymorphone HCl ER) 20 MG TAB.ER.12H 1 TAB PO BID PAIN ( Reported) Tiotropium [place] (Spiriva) 18 MCG CAP.W.DEV 1 CAP INH DAILY COPD . Triage Note: PT TO TRIAGE C/O BEING SICK X FEW WEEKS WITH PRODUCTIVE COUGH, PER PT DIFFICULTY BREATHING WORSENED TONIGHT. 02 SAT 88% ON RA. PT PLACED ON 2L NC IN TRIAGE WITH IMPROVEMENT TO 94%. PT HX COPD. Triage Nurses Notes Reviewed? yes Onset: Abrupt Duration: week(s):, constant, getting worse Timing: recent history Severity: moderate, severe HPI: 57-year-old female comes into the emergency room with complaints of chest pain or shortness of breath. Patient reports that she's been sick with respiratory symptoms such as cough congestion runny nose. Symptoms been going on for the past couple weeks. She started with chest tightness on the right side. Sharp. Increased difficulty breathing. She has oxygen at home 2 L that she is normally on. She denies any other substance symptoms. She comes in for further evaluation. (Martin Silvestre) Past History Travel History Traveled to [place] past 21 day No Medical History Any Pertinent Medical History? 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 No (Martin Silvestre) Review of Systems Review of Systems Constitutional: Reports: see HPI. EENTM: Reports: see HPI. Respiratory: Reports: see HPI. Cardiovascular: Reports: see HPI. GI: Reports: no symptoms. Genitourinary: Reports: no symptoms. Musculoskeletal: Reports: no symptoms. Skin: Reports: no symptoms. Neurological/Psychological: Reports: no symptoms. Hematologic/Endocrine: Reports: no symptoms. Immunologic/Allergic: Reports: no symptoms. All Other Systems: Reviewed and Negative (Martin Silvestre) Physical Exam Physical Exam General Appearance: alert, awake, moderate distress, thin Head: atraumatic Eyes: Bilateral: normal appearance. Ears, Nose, Throat: hearing grossly normal Neck: normal inspection Respiratory: respiratory distress (moderate) Cardiovascular: regular rate/rhythm Extremities: normal inspection Neurologic/Psych: awake, alert, oriented x 3 Skin: intact, normal color Core Measures ACS in differential dx? Yes CVA/TIA Diagnosis No Sepsis Present: No Sepsis Focused Exam Completed? No (Jarrett JOHNSTON,Martin) Progress Differential Diagnosis: asthma, AMI, bronchitis, costochondritis, CHF, COPD, musculoskeletal pain, pericarditis, pulmonary embolism, pneumonia, pneumothorax, rib fracture, unstable angina Plan of Care: Orders Procedure Date/time Status Regular Diet 11/20 B Active CBC WITHOUT DIFFERENTIAL 11/20 06 Active BASIC ELECTROLYTES PLUS BUN&CR 11/20 06 Active MISSING MEDICATION FORM 11/20 0450 Active Weight 11/20 0353 Complete Teach/Educate 11/20 0353 Active Pain Treatment and Response 11/20 0353 Active Nutritional Intake, Monitor 11/20 0353 Active Isolation 11/20 0353 Active Patient Care Conference 11/20 0353 Active Activity/Ambulation 11/20 0353 Active Code Status 11/20 0149 Active STREP PNEUMO URINARY ANTIGEN 11/20 0140 Active LEGIONELLA URINARY ANTIGEN 11/20 0140 Active ED Holding Orders 11/20 0053 Active Admit to inpatient 11/20 0053 Active Vital Signs 11/20 0053 Active Pathway - chart 11/20 0027 Active TRC EVALUATION (GEN) 11/20 0026 Active OXYGEN SETUP (GEN) 11/20 0026 Active Pathway - chart 11/20 0026 Active House Staff 11/20 0026 Active Code Status 11/20 0026 Complete RAPID VIRAL INFLUENZA A 11/20 0002 Complete Patient Data 11/20 0000 Active VTE Mechanical Prophylaxis 11/20 UNK Active BLOOD CULTURE 11/19 2359 Active Intake & Output 11/19 2306 Active Telemetry/Production Supervisor Trainee 11/19 2250 Complete TROPONIN LEVEL 11/19 2250 Complete D-DIMER 11/19 2250 Complete COMPREHENSIVE METABOLIC PANEL 11/19 2250 Complete CBC WITHOUT DIFFERENTIAL 11/19 2250 Complete EKG 11/19 2229 Active Current Medications Sig/Renetta Start time Last Medication Dose Stop Time Status Admin Azithromycin 500 MG Q24H 11/20 1000 AC (Zithromax) Sodium Chloride 250 ML (Normal Saline 0.9%) Budesonide/ 2 PUF BID 11/20 1000 AC Formoterol Fumarate (Symbicort) Ceftriaxone Sodium 1,000 MG DAILY 11/20 1000 AC (Rocephin) Enoxaparin Sodium 40 MG DAILY 11/20 1000 AC (Lovenox) Guaifenesin 600 MG Q12 11/20 1000 UNVr (Mucinex) Hydromorphone HCl 1 MG TID 11/20 1000 CAN (Dilaudid) Tiotropium [place] 1 PUF DAILY 11/20 1000 AC (Spiriva) Carisoprodol 350 MG Q6H 11/20 0700 AC 11/20 (Soma) 0601 Methylprednisolone 40 MG Q8 11/20 0600 AC 11/20 (Solumedrol) 0601 Hydromorphone HCl 1 MG TID PRN 11/20 0330 AC (Dilaudid) Non-Formulary 0 SEE ADMIN CRITERIA 11/20 0145 CAN Medication (NON FORMULARY) Albuterol Sulfate 2 PUF Q4-6 PRN PRN 11/20 0115 AC (Ventolin) Laboratory Tests 11/19/176: Anion Gap 11, Estimated GFR > 60, BUN/Creatinine Ratio 32.0 H, Glucose 102 H, Calcium 8.8, Total Bilirubin 0.3, AST 19, ALT 36, Alkaline Phosphatase 65, Troponin I < 0.01, Total Protein 6.3, Albumin 3.7, Globulin 2.6, Albumin/ Globulin Ratio 1.4, D-Dimer High Sensitivty < 200, CBC w Diff NO MAN DIFF REQ, RBC 4.41, MCV 89.6, MCH 29.6, MCHC 33.0, RDW 14.9 H, MPV 6.1 L, Gran % 77.6 H , Lymphocytes % 11.1 L, Monocytes % 9.9 H, Eosinophils % 1.1, Basophils % 0.3, Absolute Granulocytes 6.8 H, Absolute Lymphocytes 1.0 L, Absolute Monocytes 0.9 H, Absolute Eosinophils 0.1, Absolute Basophils 0 Microbiology 11/21 139 URINE ROUT: Legionella Antigen - COLB 11/21 139 URINE ROUT: Streptococcus pneumoniae Antigen (M - COLB 11/20 36 BLOOD: Blood Culture - RECD 11/20 25 NASOPHARYN: Influenza Virus A & B Rapid Smear - COMP 11/20 25 BLOOD: Blood Culture - RECD Diagnostic Imaging: Viewed by Me: Radiology Read. Discussed w/RAD: Radiology Read. Radiology Impression: PATIENT: CHARMAINE JOYA PRESENT AGE : 57 PATIENT ACCOUNT NO: [id number] : 58 LOCATION: [facility] ORDERING PHYSICIAN: Martin JOHNSTON SERVICE DATE: 11/19/17 EXAM TYPE: RAD - XRY-PORTABLE CHEST XRAY EXAMINATION: XR PORTABLE CHEST CLINICAL INFORMATION: Shortness of breath COMPARISON: October 2016 TECHNIQUE: Portable frontal view of the chest was obtained. FINDINGS: Mild infiltrate at RIGHT base. Lungs otherwise are clear, heart normal in size, mediastinum and terri are normal. Costophrenic angles are sharp, there is no pneumothorax. IMPRESSION: Mild infiltrate at RIGHT base. DICTATED BY: Navin Cook MD DATE/TIME DICTATED:2329 ALLIGATOR TRAPPER:KRISSY DATE/TIME TRANSCRIBED:11/19/172329 CONFIDENTIAL, DO NOT COPY WITHOUT APPROPRIATE AUTHORIZATION. <Electronically signed in Other Vendor System> SIGNED BY: Navin Cook MD 11/19/172338 Initial ED EKG: normal sinus rhythm, rate (102), nonspecific ST T wave chg Prior EKG: unchanged (Martin Silvestre) Departure Departure Disposition: STILL A PATIENT Condition: Stable Clinical Impression Primary Impression: Right lower lobe pneumonia Secondary Impressions: Hypoxia Referrals: Santos Birmingham MD Departure Forms: Customer Survey General Discharge Information Admission Note Spoke With: Elvin GRAY,[facility] Documentation of Exam: Documentation of any treatments & extenuating circumstances including Concerns Regarding Discharge (functional status, medication knowledge or non-compliance, living conditions, etc.) that warrant an admission rather than observation: Patient will require supplemental oxygen. IV antibiotics. Failed outpatient treatment. Pulmonary consult. IV steroids. High risk. Medically not safe for discharge. (Martin Silvestre) PA/TRANSMISSION SYSTEMS OPERATOR Co-Sign Statement Statement: ED Attending supervision documentation- [X] I saw and evaluated the patient. I have also reviewed all the pertinent lab results and diagnostic results. I agree with the findings and the plan of care as documented in the PA's/TRANSMISSION SYSTEMS OPERATOR's documentation. [X] I have reviewed the ED Record and agree with the PA's/TRANSMISSION SYSTEMS OPERATOR's documentation. [] Additions or exceptions (if any) to the PAs/TRANSMISSION SYSTEMS OPERATOR's note and plan are summarized below: [] (Wanda GRAY,Reba) Critical Care Note Critical Care Note Critical Care Time: 30-74 min (35) (Jarrett JOHNSTON,Martin)
[2017-11-19 23:07] LABS: ABSOLUTE BASOPHIL COUNT 0 /CUMM (0.0-0.2); ABSOLUTE EOSINOPHIL COUNT 0.1 /CUMM (0.0-0.7); ABSOLUTE GRANULOCYTE CT 6.8 /CUMM (1.4-6.5); ABSOLUTE MONOCYTE COUNT 0.9 /CUMM (0.10-0.60); BASOPHIL % 0.3 % (0.0-2.0); EOSINOPHIL % 1.1 % (0-5); GRANULOCYTE % 77.6 % (42.2-75.2); HEMATOCRIT 39.5 % (37-47); MEAN CORPUSCULAR HGB 29.6 PG (27.0-31.0); MEAN CORPUSCULAR VOLUME 89.6 FL (81.0-99.0); MEAN PLATELET VOLUME 6.1 FL (7.4-10.4); PLATELET COUNT 336 /CUMM (130-400); RBC DISTRIBUTION WIDTH 14.9 % (11.5-14.5); RED BLOOD CELL CT 4.41 /CUMM (4.20-5.40); WHITE BLOOD CELL COUNT 8.8 /CUMM (4.8-10.8)
--- NOTE | 2017-11-19 23:39 | RADIOLOGY REPORT ---
EXAMINATION: XR PORTABLE CHEST CLINICAL INFORMATION: Shortness of breath COMPARISON: October 2016 TECHNIQUE: Portable frontal view of the chest was obtained. FINDINGS: Mild infiltrate at RIGHT base. Lungs otherwise are clear, heart normal in size, mediastinum and terri are normal. Costophrenic angles are sharp, there is no pneumothorax. IMPRESSION: Mild infiltrate at RIGHT base.
--- NOTE | 2017-11-20 00:09 | History & Physical ---
Kanwal Schaffer MD 11/20/17 0008: General Information and HPI MD Statement: I have seen and personally examined CHARMAINE WADE and documented this H&P. The patient is a 57 year old F who presented with a patient stated chief complaint of dyspnea, cough, chest pain Source of Information: patient, old records Exam Limitations: no limitations History of Present Illness: Patient is a 57-year-old female with a past medical history of COPD on 2 L of nocturnal oxygen and rheumatoid arthritis that comes to see us today for complaints of dyspnea, cough, upper respiratory symptoms for 3 weeks and chest pain for 1 day. The patient notes that she has several sick contacts at home with upper respiratory symptoms, no confirmed cases of flu. She states that she did feel slightly better for a short time when she started Z-Jimy 2 weeks ago prescribed by her PCP. However she never felt fully better and now feels even worse. She states that she has a productive cough with a small amount of green/ yellow sputum for the past few days, less today, and non-exertional dyspnea, wheezing, and right-sided front and back chest pain that began today. She states the pain is worse on inspiration and palpation. The patient was hospitalized for left-sided pneumonia in early 2017, same symptoms but denies any similar pain at that time. She also notes rhinorrhea but states that this is normal for her. She endorses sinus pressure, ear "crackling", frontal headach, and mild sore throat as well for the past few days. She also admits to a confirmed fever of 101 at home with sweating and chills. Her appetite is decreased and she has been eating less but taking Ensure "when she can". She denies any vision change, focal neurological deficits, loss of consciousness, recent falls, nausea or vomiting, abdominal pain, constipation, diarrhea, lower extremity edema. She has no history of ICU admissions, intubations. No recent travel. Of note the patient had a recent abscess in her tooth, tooth extracted one week ago, no antibiotics given. Patient denies history of drugs including marijuana, alcohol, has smoked for over 20 years, 1 pack per day, continues to smoke "here and there". No occupational exposures. 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 Jaffe. Her PCP is Dr. Santos [place]. Allergies/Medications Allergies: Coded Allergies: NO KNOWN ALLERGIES (06/03/12) Home Med list Albuterol Sulfate (Proair Hfa) 90 MCG HFA.AER.AD 2 PUF INH Q4-6 PRN PRN COPD (Reported) Ascorbic Acid (Vitamin C) 500 MG TABLET 1 TAB PO DAILY SUPPLEMENT (Reported) Budesonide/Formoterol Fumarate (Symbicort 160-4.5 Mcg Inhaler) 160 MCG-4.5 MCG/ ACTUATION HFA.AER.AD 2 PUF INH BID COPD (Reported) Carisoprodol 350 MG TABLET 1 TAB PO 4XDAILY RA (Reported) Cholecalciferol (Vitamin D3) (Vitamin D) 2,000 UNIT CAPSULE 1 TAB PO DAILY SUPPLEMENT (Reported) Codeine/Butalbital/Asa/Caffein (Ascomp With Codeine Capsule) 30 MG-50 MG-325 MG- 40 MG CAPSULE 1 CAP PO PRN MIGRAINES (Reported) Hydromorphone HCl 4 MG TABLET 1 TAB PO TID PAIN (Reported) Ipratropium/Albuterol Sulfate (Iprat-Albut 0.5-3(2.5) MG/3 Ml) 0.5 MG-3 MG (2.5 MG BASE)/3 ML AMPUL.NEB 1 VIAL INH Q4H PRN COPD (Reported) Oxymorphone HCl (Oxymorphone HCl ER) 20 MG TAB.ER.12H 1 TAB PO BID PAIN ( Reported) Tiotropium [place] (Spiriva) 18 MCG CAP.W.DEV 1 CAP INH DAILY COPD . 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 Ambulation: independent IADLs Independent: shopping, housework, finances, food prep, telephone, transportation , medication admin. Review of Systems Review of Systems Constitutional: Reports: see HPI, chills, diaphoresis, fever. EENTM: Reports: see HPI. Cardiovascular: Reports: chest pain. Respiratory: Reports: cough, short of breath, sputum production, wheezing. GI: Reports: no symptoms. Genitourinary: Reports: no symptoms. Musculoskeletal: Reports: back pain, joint pain. Skin: Reports: no symptoms. Neurological/Psychological: Reports: no symptoms. Hematologic/Endocrine: Reports: no symptoms. Immunologic/Allergic: Reports: no symptoms. All Other Systems: Reviewed and Negative Exam & Diagnostic Data Last 24 Hrs of Vital Signs/I&O Vital Signs Date Time Temp Pulse Resp B/P B/P Pulse O2 O2 Flow FiO2 Mean Ox Delivery Rate 11/20 0214 97.9 94 20 88/50 94 Nasal 3.0L Cannula 11/20 0207 92 Nasal 3.0L Cannula 11/19 2306 98 Nasal 2.0L Cannula 11/19 2305 93 22 99 Aerosol 8L Mask 11/19 2259 93 Nasal 2.0L Cannula 11/19 2228 98.9 108 24 130/73 88 Room Air Intake & Output 11/20 0800 03/05 0000 11/19 1600 Intake Total Output Total Balance Patient 94 lb 15.99 oz Weight Weight Reported by Patient Measurement Method Physical Exam General Appearance Alert, Oriented X3, Cooperative, No Acute Distress, cachetic Skin No Rashes, No Breakdown, No Significant Lesion Skin Temp/Moisture Exam: Warm/Dry Sepsis Skin Exam (color): Normal for Ethnicity HEENT Atraumatic, PERRLA, EOMI, Mucous Membr. moist/pink Neck Supple Cardiovascular Regular Rate, Normal S1, Normal S2, No Murmurs Lungs lungs clear to auscultation on the left side, decreased air movement on the right side. Back and front right sided chest pain on palpation. Abdomen Normal Bowel Sounds, Soft, No Tenderness Neurological Normal Speech Extremities No Clubbing, No Cyanosis, No Edema, Normal Pulses, No Tenderness/ Swelling Vascular Normal Pulses, Pulses Symmetrical Sepsis Peripheral Pulse Location: Radial Sepsis Peripheral Pulse Exam: Normal Sepsis Cap Refill Exam: <2 Sec Last 24 Hrs of Labs/Norm: Laboratory Tests 11/19/172255: Anion Gap 11, Estimated GFR > 60, BUN/Creatinine Ratio 32.0 H, Glucose 102 H, Calcium 8.8, Total Bilirubin 0.3, AST 19, ALT 36, Alkaline Phosphatase 65, Troponin I < 0.01, Total Protein 6.3, Albumin 3.7, Globulin 2.6, Albumin/ Globulin Ratio 1.4, D-Dimer High Sensitivty < 200, CBC w Diff NO MAN DIFF REQ, RBC 4.41, MCV 89.6, MCH 29.6, MCHC 33.0, RDW 14.9 H, MPV 6.1 L, Gran % 77.6 H , Lymphocytes % 11.1 L, Monocytes % 9.9 H, Eosinophils % 1.1, Basophils % 0.3, Absolute Granulocytes 6.8 H, Absolute Lymphocytes 1.0 L, Absolute Monocytes 0.9 H, Absolute Eosinophils 0.1, Absolute Basophils 0 Microbiology 11/21 139 URINE ROUT: Legionella Antigen - ORD 11/21 139 URINE ROUT: Streptococcus pneumoniae Antigen (M - ORD 11/20 36 BLOOD: Blood Culture - RECD 11/20 25 NASOPHARYN: Influenza Virus A & B Rapid Smear - COMP 11/20 25 BLOOD: Blood Culture - RECD Assessment/Plan Assessment: Patient is a 57-year-old female with a past medical history of COPD on 2 L of nocturnal oxygen and rheumatoid arthritis that comes to see us today for complaints of dyspnea, wheezing, cough, upper respiratory symptoms for 3 weeks and chest pain for 1 day. The patient notes that she has several sick contacts at home with upper respiratory symptoms. She was inpatient here 1 year ago for similar symptoms, found to have left-sided pneumonia. The patient has had no recent exposure to healthcare facilities. In the ED, the patient was given 125 mg of Solu-Medrol. She was also given albuterol, Atrovent to good effect. She was found to be afebrile but with acute hypoxic respiratory failure with oxygen saturation of 88% on room air that increased to 98% on 2 L nasal cannula. EKG with normal QTC. WBC was 8.8, troponin negative, d-dimer less than 200, creatinine 0.5. Chest x-ray shows a mild infiltrate at the right lung base. Of note the patient was found to have a decrease in blood pressure from 130/73 on admission to 88/50 4 hours later. She had no symptoms at the time and had just been given her medications including Soma 350 mg for her rheumatoid arthritis. The patient's differential includes community-acquired pneumonia suggested on chest x-ray, COPD exacerbation as patient does have a history and noted wheezing at home prior to getting steroids in the ED, costochondritis as patient does have pain on palpation of chest wall. Chest x-ray showed no evidence of rib fracture (although patient is cachectic and may very well be osteopenic), CHF, pneumothorax. The patient's d-dimer was negative. The patient's troponins and EKGs were negative for ACS. She has no history of congestive heart failure, no physical exam findings. Her pain is right-sided so pericarditis is unlikely. Plan Acute hypoxic respiratory failure likely secondary to immunity acquired pneumonia: -Start patient on ceftriaxone 1 g daily and azithromycin 500 mg daily -Flu swab -Blood cultures 2 -Lower respiratory culture -Strep and Legionella urine antigens -Consider follow-up chest x-ray in 48 hours for resolution of infiltrate -Trend WBC count and look for fever spike COPD exacerbation: -Start patient on 40 mg every 8 Solu-Medrol -TRC nebs, Symbicort, Spiriva, pro-air Chronic pain secondary to rheumatoid arthritis -Start patient on her at-home meds including muscle relaxer Soma 350 mg 4 times a day, first dose right away with her OxyContin given one hour later. -Dilaudid 4MG TID and Oxycontin 20mg bid (pharmacy will put in this order as it is nonformulary from her oxymorphone outpatient. The meds and doses were confirmed on CTPMP. Hypotension -We will give patient a 500cc bolus of NS, BP corrected to 112/60. -If again low we will follow up with orthostats. -Patient was found to be hypotensive after Soma given. As a less common side effect it could cause hypotension. Patient's blood pressure will be stabilized before we give her any opiate pain medications. Malnutrition -Patient 94lbs, 5 ft, BMI 18.4 -States that she has a decreased appetite and appears cachectic and that she takes Ensure for added nutrition -Regular diet while here with Ensure - consider nutrition consult Lovenox and ALPs for DVT prophylaxis DNR/DNI DNR/DNI As Ranked By This Provider Problem List: 1. Right lower lobe pneumonia 2. COPD exacerbation 3. Rheumatoid arthritis Core Measures/Misc (9/17) Acute Coronary Syndrome ACS Diagnosis: No Congestive Heart Failure Congestive Heart Failure Diagnosis No Cerebrovascular Accident CVA/TIA Diagnosis: No VTE (View Protocol) VTE Risk Factors Acute Medical Illness No Mechanical VTE Prophylaxis d/t N/A MechProphylax Ordered No VTE Pharm Prophylaxis d/t NA PharmProphylax ordered Sepsis (View protocol) Sepsis Present: No Alejo Magaña 11/20/17 0144: Resident Review Statement Resident Statement: examined this patient, discussed with quality intern, agreed with quality intern, reviewed EMR data (avail), discussed with nursing, reviewed images Other Findings: Mrs. Wade is a 57 yo lady with PMHx. of COPD on Nocturnal 2L O2 and PRN daytime O2, Hx. of RA on chronic opiod, migraine presented to ED with a c/o SOB. Patient was desating up to 85% on RA, Hx. of sick contact, recently was treated for productive cough, fever, chills with a course of z-pack finished a week ago, with some improvement of the symptoms. Will admitt the patient to floor for acute hypoxic respiratory failure/ COPD exacerbation, she received IV ceftriaxone/ IV azithromycin and IV solumedrol, will continue antibiotic, solumedrol 40mg q8, trc/nebs, sputum cx, flu negative, urine legionella, strept antigen, pain managment with home meds, SCLovenox for dvt ppx, DNR/DNR per patient wishes Elvin GRAY, [facility] 11/20/17 0259: Attending MD Review Statement Attending Statement Attending MD Statement: examined this patient, discuss w/resident/PA/FOOD AND BEVERAGE MANAGER, agreed w/resident/PA/FOOD AND BEVERAGE MANAGER, reviewed images, amended to note Attending Assessment/Plan: 57 yo F with h/o COPD on nocturnal 2L O2 and PRN during daytime, chronic hypoxic respiratory failure, RA, chronic pain syndrome on opiates, follows with [employer] (Dr. Jaffe) is here for evaluation of 2-week h/o ongoing congestion, productive cough, dyspnea and wheezing despite being treated for bronchitis with Z-jimy. She reports right sided pleuritic chest pain and she feels its all muscular pain. Fever of 101 at home. Multiple members of her family have been sick with flu like symptoms although not diagnosed with influenza. She has a 40-pack smoking history and has quit, but takes a few cigarettes intermittently. She was last admitted to [place] (Oct 2016) for gram negative pneumonia and COPDE. She has never been intubated. On ER arrival, her O2 sats were 88% on RA, HR 90-100's, BP 130/73--> 88/53. Exam : Cachectic female, MMM, Neck supple, Chest b/l reduced breath sounds, no obvious bruises to right chest, Heart S1S2 regular. Labs: no leukocytosis, D-dimer <200, trop neg. Flu swab negative. CXR: mild infiltrate at right base. EKG: Sinus tachycardia, PVC's, Qtc 449. Assessment and plan: 1. Acute on chronic hypoxic respiratory failure 2. Acute severe COPD exacerbation from viral/bacterial bronchitis 3. Community acquired pneumonia (RLL infiltrate) 4. Chronic pain syndrome and RA on opiates 5. Transient hypotension probably related to her pain meds, improved with fluids - Admit to General medicine - Nebs 4 times a day RTC - Sputum cultures, urine legionella and strep antigen - IV ceftriaxone and azithromycin - IV solumedrol 40 Q8 - Add mucinex BID - Pulm consult (Dr. Gore) if her symptoms do not improve - Counseled about smoking cessation - Continue soma, dilaudid and oxymorphone (convert to oxycontin). Please give adequate time spacing between these medications to avoid side effects. - IV fluids given, monitor BP, check AM cortisol levels DVT ppx Lovenox. DNR/I.
--- NOTE | 2017-11-20 03:12 | Admission Certification ---
Admission Certification Certification Statement - As attending physician, I certify that at the time of - admission, based on clinical presentation, severity of - symptoms, need for further diagnostic testing and - therapeutic interventions, and risk of adverse outcomes - without in-hospital treatment, in my clinical assessment, - this patient requires an acute hospital stay for a minimum - of two nights or longer. I have also considered psychsocial - factors such as support system, advanced age, financial - issues, cognitive issues, and failed out-patient treatments, - past re-admission history, safety of patient, and lack of - compliance as applicable. Specific rationale supporting this admission is: Acute on chronic hypoxic respiratory failure, severe COPD exacerbation with community acquired pneumonia.
[2017-11-20 04:08] VITALS: BP 114/60
[2017-11-20 07:22] VITALS: BP 110/64
[2017-11-20 08:16] LABS: ABSOLUTE BASOPHIL COUNT 0 /CUMM (0.0-0.2); ABSOLUTE EOSINOPHIL COUNT 0 /CUMM (0.0-0.7); ABSOLUTE GRANULOCYTE CT 7.4 /CUMM (1.4-6.5); ABSOLUTE LYMPH COUNT 0.2 /CUMM (1.2-3.4); ABSOLUTE MONOCYTE COUNT 0.1 /CUMM (0.10-0.60); BASOPHIL % 0 % (0.0-2.0); EOSINOPHIL % 0 % (0-5); MEAN CORPUSCULAR HGB 29.7 PG (27.0-31.0); MEAN CORPUSCULAR VOLUME 90.1 FL (81.0-99.0); MEAN PLATELET VOLUME 6.8 FL (7.4-10.4); PLATELET COUNT 255 /CUMM (130-400); RBC DISTRIBUTION WIDTH 14.8 % (11.5-14.5); RED BLOOD CELL CT 3.88 /CUMM (4.20-5.40); WHITE BLOOD CELL COUNT 7.7 /CUMM (4.8-10.8)
[2017-11-20 09:17] LABS: GRANULOCYTE % 96.4 % (42.2-75.2)
--- NOTE | 2017-11-20 10:40 | PN- Att Addend ---
Attending Addendum Attending Brief Note 57F PMH COPD on nocturnal 2L O2 and PRN during daytime, chronic hypoxic respiratory failure, RA, chronic pain syndrome on opiates admitted for cough, right sided pleuritic chest pain, increased oxygen requirements, and dyspnea with minimal exertion in the setting of RLL pneumonia and COPD exacerbation. Feels better than yesterday but still nowhere near baseline. Pleuritic chest pain improved. Desaturated to 88% today on room air at rest. Still wheezing on exam. Current Medications Sig/Renetta Start time Last Medication Dose Route Stop Time Status Admin Acetaminophen 975 MG Q8P PRN 11/20 0715 AC PO Albuterol Sulfate 3 ML EVERY 4 HRS/AWAKE 11/20 0800 AC 11/20 INH 0804 Albuterol Sulfate 3 ML ONCE ONE 11/20 0215 DC 11/20 INH 11/20 0216 0207 Albuterol Sulfate 2 PUF Q4-6 PRN PRN 11/20 0115 AC INH Albuterol Sulfate 3 ML ONCE ONE 11/19 2300 DC 11/19 INH 11/19 2301 2253 Azithromycin 500 MG Q24H 11/20 1000 CAN Sodium Chloride 250 ML IV Azithromycin 250 MG DAILY 11/20 1000 AC 11/20 PO 0940 Azithromycin 500 MG ONCE ONE 11/19 2345 DC 11/20 Dextrose/Water 250 ML IV 11/20 0044 0114 Budesonide/ 2 PUF BID 11/20 1000 AC 11/20 Formoterol Fumarate INH 0907 Carisoprodol 350 MG Q6H 11/20 0700 AC 11/20 PO 0601 Carisoprodol 0 .STK-MED ONE 11/20 0119 DC PO Carisoprodol 350 MG .[4XDAILY] 11/20 0115 DC 03 PO 0114 Ceftriaxone Sodium 1,000 MG DAILY 11/20 1000 AC 11/20 IV 0911 Ceftriaxone Sodium 0 .STK-MED ONE 11/20 0102 DC .ROUTE Ceftriaxone Sodium 1,000 MG ONCE ONE 11/19 2345 DC 11/20 IV 11/19 2346 0108 Enoxaparin Sodium 40 MG DAILY 11/20 1000 AC / SC 0910 Guaifenesin 600 MG Q12 11/20 1000 AC 11/20 PO 0910 Hydromorphone HCl 1 MG TID 11/20 1000 DC PO Hydromorphone HCl 1 MG TID 11/20 1000 CAN PO Hydromorphone HCl 4 MG TIDPRN PRN 11/20 0651 AC PO Hydromorphone HCl 1 MG TID PRN 11/20 0330 DC PO Ipratropium [place] 2.5 ML ONCE ONE 11/190 DC 11/19 INH 11/19 230 225 Methylprednisolone 40 MG Q8 11/20 0600 AC 11/20 IV 0601 Methylprednisolone 0 .STK-MED ONE 11/19 2304 DC .ROUTE Methylprednisolone 125 MG ONCE ONE 11/190 DC 11/19 IV 11/19 230 230 Morphine Sulfate 30 MG BID 11/20 1000 AC 11/20 PO 0910 Non-Formulary 0 SEE ADMIN CRITERIA 11/20 0145 CAN Medication ANY Oxycodone HCl 20 MG ONCE ONE 11/20 0430 DC 11/20 PO 11/20 043 0424 Sodium Chloride 500 ML BOLUS ONE 11/20 0230 DC 11/20 IV 11/20 0329 0226 Tiotropium [place] 1 PUF DAILY 11/20 1000 AC 11/20 INH 0908 Laboratory Tests 11/20 11/19 0638 2256 Chemistry Sodium (137 - 145 mmol/L) 138 138 Potassium (3.5 - 5.1 mmol/L) 4.4 4.3 Chloride (98 - 107 mmol/L) 100 98 Carbon Dioxide (22 - 30 mmol/L) 28 29 Anion Gap (5 - 16) 10 11 BUN (7 - 17 mg/dL) 14 16 Creatinine (0.5 - 1.0 mg/dL) 0.4 L 0.5 Estimated GFR (>60 ml/min) > 60 > 60 BUN/Creatinine Ratio (7 - 25 %) 35.0 H 32.0 H Glucose (65 - 99 mg/dL) 102 H Calcium (8.4 - 10.2 mg/dL) 8.8 Total Bilirubin (0.2 - 1.3 mg/dL) 0.3 AST (14 - 36 U/L) 19 ALT (9 - 52 U/L) 36 Alkaline Phosphatase (<127 U/L) 65 Troponin I (< 0.11 ng/ml) < 0.01 Total Protein (6.3 - 8.2 g/dL) 6.3 Albumin (3.5 - 5.0 g/dL) 3.7 Globulin (1.9 - 4.2 gm/dL) 2.6 Albumin/Globulin Ratio (1.1 - 2.2 %) 1.4 Cortisol AM Sample (4.46 - 22.7 ug/dL) 9.6 Coagulation D-Dimer High Sensitivty (0 - 243 ng/ml) < 200 Hematology CBC w Diff NO MAN DIFF REQ NO MAN DIFF REQ WBC (4.8 - 10.8 /CUMM) 7.7 8.8 RBC (4.20 - 5.40 /CUMM) 3.88 L 4.41 Hgb (12.0 - 16.0 G/DL) 11.5 L 13.1 Hct (37 - 47 %) 35.0 L 39.5 MCV (81.0 - 99.0 FL) 90.1 89.6 MCH (27.0 - 31.0 PG) 29.7 29.6 MCHC (33.0 - 37.0 G/DL) 33.0 33.0 RDW (11.5 - 14.5 %) 14.8 H 14.9 H Plt Count (130 - 400 /CUMM) 255 336 MPV (7.4 - 10.4 FL) 6.8 L 6.1 L Gran % (42.2 - 75.2 %) 96.4 H 77.6 H Lymphocytes % (20.5 - 51.1 %) 2.4 L 11.1 L Monocytes % (1.7 - 9.3 %) 1.2 L 9.9 H Eosinophils % (0 - 5 %) 0 1.1 Basophils % (0.0 - 2.0 %) 0 0.3 Absolute Granulocytes (1.4 - 6.5 /CUMM) 7.4 H 6.8 H Absolute Lymphocytes (1.2 - 3.4 /CUMM) 0.2 L 1.0 L Absolute Monocytes (0.10 - 0.60 /CUMM) 0.1 0.9 H Absolute Eosinophils (0.0 - 0.7 /CUMM) 0 0.1 Absolute Basophils (0.0 - 0.2 /CUMM) 0 0 Vital Signs Date Time Temp Pulse Resp B/P B/P Pulse O2 O2 Flow FiO2 Mean Ox Delivery Rate 11/20 0946 Nasal 4.0L Cannula 11/20 0806 90 Nasal 4.0L Cannula 11/20 0722 98.5 97 21 110/64 93 11/20 0408 98.4 102 22 114/60 91 03/05 0354 Nasal 3.0L Cannula 11/20 0331 97.6 96 22 112/60 94 Nasal 3.0L Cannula 11/20 0214 97.9 94 20 88/50 94 Nasal 3.0L Cannula 11/20 0207 92 Nasal 3.0L Cannula / 2306 98 Nasal 2.0L Cannula / 2305 93 22 99 Aerosol 8L Mask 11/19 2259 93 Nasal 2.0L Cannula 11/19 2228 98.9 108 24 130/73 88 Room Air Intake & Output 11/20 1600 11/20 0800 11/20 0000 Intake Total 240 Output Total Balance 240 Intake, Oral 240 Patient 43.091 kg Weight Weight Reported by Patient Measurement Method 1. RLL pneumonia 2. COPD exacerbation 3. Acute on chronic hypoxemic respiratory failure 4. Pleuritic chest pain Plan - Continue on general medicine - Continue Ceftriaxone and Azithromycin - Follow cultures - Continue Solumedrol - Nebulizer treatments - Pulmonary consult - Titrate down oxygen as tolerated - Continue home medications - DVT PPx
[2017-11-20 14:42] VITALS: BP 104/56
[2017-11-20 21:58] VITALS: BP 100/56
--- NOTE | 2017-11-21 07:26 | PN- Housestaff ---
See Addendum Subjective Follow-up For: AHRF, PNA Subjective: No overnight events. The patient needed a breathing treatment this morning and O2 is up to 5L. She is still coughing and feels sick. No chest pain, abd pain, N /V/D. Review of Systems Constitutional: Reports: no symptoms. EENTM: Reports: no symptoms. Cardiovascular: Reports: no symptoms. Respiratory: Reports: see HPI. Gastrointestinal: Reports: no symptoms. Genitourinary: Reports: no symptoms. Musculoskeletal: Reports: no symptoms. Skin: Reports: no symptoms. Neurological/Psychological: Reports: no symptoms. Hematologic/Endocrine: Reports: no symptoms. Immunologic/Allergic: Reports: no symptoms. Objective Last 24 Hrs of Vital Signs/I&O Vital Signs Date Time Temp Pulse Resp B/P B/P Pulse O2 O2 Flow FiO2 Mean Ox Delivery Rate 11/21 0646 92 Nasal 5.0L Cannula 11/21 0000 93 Nasal 5.0L Cannula 11/20 2158 98.3 93 20 100/56 93 Nasal 5.0L Cannula 11/20 1632 95 Nasal 5.0L Cannula 11/20 1442 98.4 102 22 104/56 91 Nasal 5.0L Cannula 11/20 0946 Nasal 4.0L Cannula 11/20 0806 90 Nasal 4.0L Cannula 11/20 0800 93 Nasal 5.0L Cannula Intake & Output 11/21 0800 11/21 0000 11/20 1600 Intake Total 780 Output Total Balance 780 Intake, IV 60 Intake, Oral 720 Patient 43.091 kg Weight Physical Exam General Appearance: Alert, Oriented X3, Cooperative, No Acute Distress Cardiovascular: Regular Rate, Normal S1, Normal S2 Lungs: moderate wheezing bilaterally Abdomen: Normal Bowel Sounds, Soft, No Tenderness Extremities: No Edema, Normal Pulses, No Tenderness/Swelling Current Medications: Current Medications Sig/Renetta Start time Last Medication Dose Route Stop Time Status Admin Acetaminophen 975 MG Q8P PRN 11/20 0715 AC 11/20 PO 1545 Albuterol Sulfate 3 ML EVERY 4 HRS/AWAKE 11/20 0800 AC 11/21 INH 0642 Albuterol Sulfate 2 PUF Q4-6 PRN PRN 11/20 0115 AC INH Azithromycin 500 MG Q24H 11/20 1000 CAN Sodium Chloride 250 ML IV Azithromycin 250 MG DAILY 11/20 1000 AC 11/20 PO 0940 Budesonide/ 2 PUF BID 11/20 1000 AC 11/20 Formoterol Fumarate INH 2201 Carisoprodol 350 MG Q6H 11/20 0700 AC 11/21 PO 0530 Ceftriaxone Sodium 1,000 MG DAILY 11/20 1000 AC 11/20 IV 0911 Enoxaparin Sodium 40 MG DAILY 11/20 1000 AC 11/20 SC 0910 Guaifenesin 600 MG Q12 11/20 1000 AC 11/20 PO 2201 Hydromorphone HCl 4 MG TIDPRN PRN 11/20 0651 AC 11/21 PO 0536 Melatonin 5 MG AT BEDTIME 11/21 2200 DC PO Melatonin 5 MG AT BEDTIME 11/20 2245 AC 11/20 PO 2242 Methylprednisolone 40 MG Q8 11/20 0600 AC 11/21 IV 0530 Morphine Sulfate 30 MG BID 11/20 1000 AC 11/20 PO 2201 Patient Medication 1 ED ONE ONE 11/20 1600 DC Teaching ED 11/20 1601 Tiotropium [place] 1 PUF DAILY 11/20 1000 AC 11/20 INH 0908 Last 24 Hrs of Lab/Norm Results Last 24 Hrs of Labs/Mics: Microbiology 11/20 1929 LOWER RESP: Respiratory Culture - RES 11/20 1929 LOWER RESP: Gram Stain - RES Assessment/Plan Assessment: Patient is a 57-year-old female with a past medical history of COPD on 2 L of nocturnal oxygen and rheumatoid arthritis here with COPD exacerbation and possible pneumonia. Problem list: 1. Acute on chronic hypoxic respiratory failure 2. COPD exacerbation 3. Likely community acquired pneumonia 4. Underweight #Acute on chronic hypoxic respiratory failure: Patient presented with respiratory failure. She has a baseline oxygen requirement at night 2 L. Imaging says possible pneumonia. Cultures have not grown. Her oxygen requirement went up slightly from 4 L to 5 L overnight. -Continue TRC nebs and oxygen therapy -Continue ceftriaxone and azithromycin -Consider pulmonology consult -Follow cultures -Continue methylprednisolone 40 mg every 8 hours -Continue guaifenesin #Underweight: BMI is 18.6. Nutrition was consulted and recommends continuing regular diet with ensure supplementation -Regular diet with ensure supplementation #Chronic medical problems: CT AIRPLANE TECHNICIAN was reviewed to confirm chronic opioid therapy -Continue home medications DVT prophylaxis with enoxaparin Regular diet DNR/DNI Problem List: 1. COPD exacerbation Pain Ratin Pain Location: no Pain Goal: Remain pain free Pain Plan: see a/p [facility] Labs & Rationales: no
[2017-11-21 07:40] VITALS: BP 122/62
--- NOTE | 2017-11-21 14:04 | Cons- Pulmonary ---
General Information and HPI Consulting Request Date of Consult: 11/21/17 Requested By: Alberto Reason for Consult: Exacerbation of COPD acute hypoxic respiratory failure History of Present Illness: Patient is a 57-year-old with severe underlying COPD now on disability occasionally smoking utilizing nocturnal oxygen admitted for acute exacerbation of COPD acute hypoxic respiratory failure and suspected community-acquired pneumonia. She is required 4 L of oxygen at baseline at rest is room air. She has had increasing cough shortness breath and transient right chest pain which was nonpleuritic. He said no hemoptysis. She's been treated with antibiotics IV steroids supplemental oxygen and is symptomatically improving. Patient continues to smoke intermittently has been counseled regarding the need for absolute smoking cessation Allergies/Medications Allergies: Coded Allergies: NO KNOWN ALLERGIES (06/03/12) Home Med List: Albuterol Sulfate (Proair Hfa) 90 MCG HFA.AER.AD 2 PUF INH Q4-6 PRN PRN COPD (Reported) Ascorbic Acid (Vitamin C) 500 MG TABLET 1 TAB PO DAILY SUPPLEMENT (Reported) Budesonide/Formoterol Fumarate (Symbicort 160-4.5 Mcg Inhaler) 160 MCG-4.5 MCG/ ACTUATION HFA.AER.AD 2 PUF INH BID COPD (Reported) Carisoprodol 350 MG TABLET 1 TAB PO 4XDAILY RA (Reported) Cholecalciferol (Vitamin D3) (Vitamin D) 2,000 UNIT CAPSULE 1 TAB PO DAILY SUPPLEMENT (Reported) Codeine/Butalbital/Asa/Caffein (Ascomp With Codeine Capsule) 30 MG-50 MG-325 MG- 40 MG CAPSULE 1 CAP PO PRN MIGRAINES (Reported) Hydromorphone HCl 4 MG TABLET 1 TAB PO TID PAIN (Reported) Ipratropium/Albuterol Sulfate (Iprat-Albut 0.5-3(2.5) MG/3 Ml) 0.5 MG-3 MG (2.5 MG BASE)/3 ML AMPUL.NEB 1 VIAL INH Q4H PRN COPD (Reported) Oxymorphone HCl (Oxymorphone HCl ER) 20 MG TAB.ER.12H 1 TAB PO BID PAIN ( Reported) Tiotropium [place] (Spiriva) 18 MCG CAP.W.DEV 1 CAP INH DAILY COPD . Review of Systems Review of Systems Constitutional: Reports: fever. Denies: chills. Cardiovascular: Denies: chest pain. Respiratory: Reports: cough, short of breath, sputum production, wheezing. Denies: hemoptysis. GI: Denies: abdominal pain, diarrhea, melena. Past History Travel History Traveled to [place] past 21 day No Medical History Neurological: NONE EENT: NONE Cardiovascular: NONE Respiratory: copd Gastrointestinal: NONE Hepatic: NONE Renal: NONE Musculoskeletal: RA Psychiatric: NONE Endocrine: NONE Blood Disorders: NONE Cancer(s): NONE ACCOUNT INFORMATION CLERK/Reproductive: NONE Surgical History Surgical History: csection, rotator cuff repair "years ago", ankle fracture repair Family History Relations & Conditions If Any: FATHER FH: diabetes mellitus FHx: COPD (chronic obstructive pulmonary disease) MOTHER FH: diabetes mellitus FH: heart disease Psychosocial History Services at Home: None Primary Language: Iraqi Smoking Status: Light Tobacco Smoker Functional Ability ADLs Independent: dressing, eating, toileting, bathing. Ambulation: independent IADLs Independent: shopping, housework, finances, food prep, telephone, transportation , medication admin. Exam & Diagnostic Data Last 24 Hrs of Vital Signs/I&O Vital Signs Date Time Temp Pulse Resp B/P B/P Pulse O2 O2 Flow FiO2 Mean Ox Delivery Rate 11/21 1127 94 Nasal 4.0L Cannula 11/21 0800 94 Nasal 5.0L Cannula 11/21 0740 97.9 80 20 122/62 94 / 0646 92 Nasal 5.0L Cannula / 0000 93 Nasal 5.0L Cannula 11/20 2158 98.3 93 20 100/56 93 Nasal 5.0L Cannula 11/20 1632 95 Nasal 5.0L Cannula 11/20 1442 98.4 102 22 104/56 91 Nasal 5.0L Cannula Intake & Output 11/21 1600 06 0800 11/21 0000 Intake Total 550 Output Total Balance 550 Intake, IV 150 Intake, Oral 400 Patient is a thin woman oxygen saturation 4 L 94% HEENT exam shows no adenopathy exam for chest shows scattered expiratory wheezing cardiac exam shows regular S1 and S2 abdomen is soft nontender extremities without edema Last 48 Hrs of Labs/Norm: Laboratory Tests 11/20/17 0638: Anion Gap 10, Estimated GFR > 60, BUN/Creatinine Ratio 35.0 H, Cortisol AM Sample 9.6, CBC w Diff NO MAN DIFF REQ, RBC 3.88 L, MCV 90.1, MCH 29.7, MCHC 33.0, RDW 14.8 H, MPV 6.8 L, Gran % 96.4 H, Lymphocytes % 2.4 L, Monocytes % 1.2 L, Eosinophils % 0, Basophils % 0, Absolute Granulocytes 7.4 H, Absolute Lymphocytes 0.2 L, Absolute Monocytes 0.1, Absolute Eosinophils 0, Absolute Basophils 0 11/19/176: Anion Gap 11, Estimated GFR > 60, BUN/Creatinine Ratio 32.0 H, Glucose 102 H, Calcium 8.8, Total Bilirubin 0.3, AST 19, ALT 36, Alkaline Phosphatase 65, Troponin I < 0.01, Total Protein 6.3, Albumin 3.7, Globulin 2.6, Albumin/ Globulin Ratio 1.4, D-Dimer High Sensitivty < 200, CBC w Diff NO MAN DIFF REQ, RBC 4.41, MCV 89.6, MCH 29.6, MCHC 33.0, RDW 14.9 H, MPV 6.1 L, Gran % 77.6 H , Lymphocytes % 11.1 L, Monocytes % 9.9 H, Eosinophils % 1.1, Basophils % 0.3, Absolute Granulocytes 6.8 H, Absolute Lymphocytes 1.0 L, Absolute Monocytes 0.9 H, Absolute Eosinophils 0.1, Absolute Basophils 0 Microbiology 11/20 0026 NASOPHARYN: Influenza Virus A & B Rapid Smear - COMP Assessment/Plan Impression/Plan: 57-year-old woman with probable advanced severe COPD now on disability admitted with possible small right basilar community-acquired pneumonia though her white count is normal and she is been afebrile and exacerbation of COPD complicated by acute hypoxic respiratory failure. Her oxygen requirements are likely related to persistent bronchospasm. Recommendations: Continue antibiotics IV steroids nebs. Taper FiO2 his saturations allow. Provide portable oxygen to increase mobility. Follow-up sputum culture. I suspect patient will require short-term supplemental oxygen at discharge Consult Acknowledgment - Thank you for your consult request.
[2017-11-21 15:00] VITALS: BP 112/60
[2017-11-21 20:47] VITALS: BP 122/72
[2017-11-22 06:46] VITALS: BP 149/93
--- NOTE | 2017-11-22 07:02 | PN- Housestaff ---
See Addendum Subjective Follow-up For: COPD, CAP Subjective: Patient did not sleep well beecause her room mate's alarm was going off all night. Otherwise, patient is having some SOB this morning but no associated chest pain. Review of Systems Constitutional: Reports: no symptoms. EENTM: Reports: no symptoms. Cardiovascular: Reports: no symptoms. Respiratory: Reports: see HPI. Gastrointestinal: Reports: no symptoms. Genitourinary: Reports: no symptoms. Musculoskeletal: Reports: no symptoms. Skin: Reports: no symptoms. Neurological/Psychological: Reports: no symptoms. Hematologic/Endocrine: Reports: no symptoms. Immunologic/Allergic: Reports: no symptoms. Objective Last 24 Hrs of Vital Signs/I&O Vital Signs Date Time Temp Pulse Resp B/P B/P Pulse O2 O2 Flow FiO2 Mean Ox Delivery Rate 11/22 0000 Nasal 2.0L Cannula 11/21 2047 98.2 95 17 122/72 93 Nasal 3.0L Cannula 11/21 1631 93 Nasal 3.5L Cannula 11/21 1600 92 Nasal 2.0L Cannula 11/21 1500 98.3 97 20 112/60 92 Nasal Cannula 11/21 1417 95 Nasal 3.0L Cannula 11/21 1127 94 Nasal 4.0L Cannula 11/21 0800 94 Nasal 5.0L Cannula 11/21 0740 97.9 80 20 122/62 94 Intake & Output 11/22 0800 11/22 0000 11/21 1600 Intake Total 850 550 Output Total Balance 850 550 Intake, IV 10 150 Intake, Oral 840 400 Physical Exam General Appearance: Alert, Oriented X3, Cooperative, Mild Distress Cardiovascular: Regular Rate, Normal S1, Normal S2 Lungs: moderate wheezing with scattered rhonci, increased RR, using accessory muscles. Abdomen: Normal Bowel Sounds, Soft, No Tenderness Extremities: No Edema, Normal Pulses, No Tenderness/Swelling Current Medications: Current Medications Sig/Renetta Start time Last Medication Dose Route Stop Time Status Admin Acetaminophen 975 MG Q8P PRN 11/20 0715 AC 11/20 PO 1545 Albuterol Sulfate 3 ML EVERY 4 HRS/AWAKE 11/20 0800 AC 11/21 INH 1628 Albuterol Sulfate 2 PUF Q4-6 PRN PRN 11/20 0115 AC INH Azithromycin 250 MG DAILY 11/20 1000 AC 11/21 PO 1014 Budesonide/ 2 PUF BID 11/20 1000 AC 11/21 Formoterol Fumarate INH 2108 Carisoprodol 350 MG Q6H 11/20 0700 AC 11/22 PO 0613 Ceftriaxone Sodium 1,000 MG DAILY 11/20 1000 AC 11/21 IV 1014 Enoxaparin Sodium 40 MG DAILY 11/20 1000 AC 11/21 SC 1015 Guaifenesin 600 MG Q12 11/20 1000 AC 11/21 PO 2107 Hydromorphone HCl 4 MG Q6P PRN 11/21 0915 DC PO Hydromorphone HCl 4 MG Q8P PRN 11/21 0915 AC 11/21 PO 2108 Hydromorphone HCl 4 MG TIDPRN PRN 11/20 0651 DC 11/21 PO 0536 Melatonin 5 MG AT BEDTIME 11/20 2245 DC 11/20 PO 2242 Methylprednisolone 40 MG Q8 11/20 0600 AC 11/22 IV 0613 Morphine Sulfate 30 MG BID 11/20 1000 AC 11/21 PO 2107 Patient Medication 1 ED ONE ONE 11/21 1545 DC Teaching ED 11/21 1546 Ramelteon 8 MG AT BEDTIME 11/21 2200 AC 11/21 PO 2107 Tiotropium [place] 1 PUF DAILY 11/20 1000 AC 11/21 INH 1013 Assessment/Plan Assessment: Patient is a 57-year-old female with a past medical history of COPD on 2 L of nocturnal oxygen and rheumatoid arthritis here with COPD exacerbation and pneumonia. Problem list: 1. Acute on chronic hypoxic respiratory failure 2. COPD exacerbation 3. Lobar pneumonia 4. Underweight #Acute on chronic hypoxic respiratory failure: Patient presented with respiratory failure. She has a baseline oxygen requirement at night 2 L. Imaging consistent with pneumonia. Cultures have not grown except for yeast. This morning, she was feeling short of breath and mild distress. Pulmonology has been consulted. -Continue TRC nebs and oxygen therapy -Continue ceftriaxone and azithromycin, day 3 -Appreciate pulmonology recommendations -Follow cultures -Continue methylprednisolone 40 mg every 8 hours -Continue guaifenesin #Underweight: BMI is 18.6. Nutrition was consulted and recommends continuing regular diet with ensure supplementation -Regular diet with ensure supplementation #Chronic medical problems: CT BANKING PARALEGAL was reviewed to confirm chronic opioid therapy -Continue home medications DVT prophylaxis with enoxaparin Regular diet DNR/DNI Problem List: 1. Right lower lobe pneumonia Pain Ratin Pain Location: no Pain Goal: Remain pain free Pain Plan: see a/p Tomorrow's Labs & Rationales: no
--- NOTE | 2017-11-22 08:03 | PN- Pulmonary ---
Subjective HPI/Critical Care Issues: Patient is ambulatory on low-flow oxygen and shortness of breath is somewhat improved Objective Current Medications: Current Medications Sig/Renetta Start time Last Medication Dose Route Stop Time Status Admin Acetaminophen 975 MG Q8P PRN 11/20 0715 AC 11/20 PO 1545 Albuterol Sulfate 3 ML EVERY 4 HRS/AWAKE 11/20 0800 AC 11/22 INH 0742 Albuterol Sulfate 2 PUF Q4-6 PRN PRN 11/20 0115 AC INH Azithromycin 250 MG DAILY 11/20 1000 AC 11/21 PO 1014 Budesonide/ 2 PUF BID 11/20 1000 AC 11/21 Formoterol Fumarate INH 2108 Carisoprodol 350 MG Q6H 11/20 0700 AC 11/22 PO 0613 Ceftriaxone Sodium 1,000 MG DAILY 11/20 1000 AC 11/21 IV 1014 Enoxaparin Sodium 40 MG DAILY 11/20 1000 AC 11/21 SC 1015 Guaifenesin 600 MG Q12 11/20 1000 AC 11/21 PO 2107 Hydromorphone HCl 4 MG Q6P PRN 11/21 0915 DC PO Hydromorphone HCl 4 MG Q8P PRN 11/21 0915 AC 11/21 PO 2108 Hydromorphone HCl 4 MG TIDPRN PRN 11/20 0651 DC 11/21 PO 0536 Melatonin 5 MG AT BEDTIME 11/20 2245 DC 11/20 PO 2242 Methylprednisolone 40 MG Q8 11/20 0600 AC 11/22 IV 0613 Morphine Sulfate 30 MG BID 11/20 1000 AC 11/21 PO 2107 Patient Medication 1 ED ONE ONE 11/21 1545 NE Teaching ED 11/21 1546 Ramelteon 8 MG AT BEDTIME 11/21 2200 AC 11/21 PO 2107 Tiotropium [place] 1 PUF DAILY 11/20 1000 AC 11/21 INH 1013 Vital Signs & I&O Last 24 Hrs of Vitals and I&O: Vital Signs Date Time Temp Pulse Resp B/P B/P Pulse O2 O2 Flow FiO2 Mean Ox Delivery Rate 11/22 0644 91 Nasal 3.0L Cannula 11/22 645 98.1 93 22 149/93 93 Nasal 4.0L Cannula 11/22 0000 Nasal 2.0L Cannula 11/21 2046 98.2 95 17 122/72 93 Nasal 3.0L Cannula 11/21 1631 93 Nasal 3.5L Cannula 11/21 1600 92 Nasal 2.0L Cannula 11/21 1500 98.3 97 20 112/60 92 Nasal Cannula 11/21 1417 95 Nasal 3.0L Cannula 11/21 1127 94 Nasal 4.0L Cannula Intake & Output 11/22 1600 11/22 0800 11/22 0000 Intake Total 850 Output Total Balance 850 Intake, IV 10 Intake, Oral 840 Oxygen saturation 3 L 91% exam for chest shows scattered expiratory wheezing cardiac exam shows normal S1 and S2 abdomen is soft nontender Impression/Plan Impression/Plan Impression/Plan: 57-year-old woman with severe COPD admitted with exacerbation of COPD and possible right lower lobe community acquired pneumonia and acute hypoxic respiratory failure she appears to be slowly improving Recommendations: Continue antibiotics IV steroids nebs. Taper FiO2 his saturations allow. Provide portable oxygen to increase mobility. Follow-up sputum culture. I suspect patient will require short-term supplemental oxygen at discharge repeat PA and lateral chest x-ray. If no infiltrate is present would switch to oral antibiotics
--- NOTE | 2017-11-22 09:53 | RADIOLOGY REPORT ---
EXAMINATION: XR CHEST CLINICAL INFORMATION: COPD exacerbation, increasing O2 demand. COMPARISON: Portable view of the chest dated 11/19/2017. TECHNIQUE: Frontal and lateral views of the chest were obtained. FINDINGS: There is a subtle area of increased density in the lateral margin of the left cardiac border, which is concerning for a left lower lobe infiltrate, with no silhouetting of the left cardiac border. The remainder of the lungs are clear bilaterally including the small focal area of increased density in the right middle lobe noted on the prior study. The lungs are hyperinflated, overall slightly increased hyperinflation with deeper costophrenic angles by comparison with the prior study. There is no evidence of pleural effusion or pneumothorax. The central pulmonary vasculature is within normal limits. The cardiomediastinal silhouette is not enlarged. Complex scoliosis of the thoracolumbar spine is again noted. IMPRESSION: 1. Interval development of an area of airspace opacification in the left lung base is concerning for left lower lobe infiltrate. Clinical correlation is requested with follow-up to resolution recommended. 2. Overall increasing hyperinflation when compared directly to the prior study of 11/19/2017.
[2017-11-22 14:20] VITALS: BP 112/70
--- NOTE | 2017-11-22 17:30 | CT SCAN REPORT ---
EXAMINATION: CT CHEST WITH CONTRAST CLINICAL INFORMATION: Left lung opacity. Increased shortness of breath. COMPARISON: Same day chest x-ray, chest x-ray 11/19/2017 and CTA chest 10/26/2016 TECHNIQUE: Multidetector volumetric CT imaging of the chest was obtained after the administration of 95 mL of Optiray 320 intravenous contrast without immediate adverse reactions. Axial MIP volume rendering provided. Sagittal and coronal reformatted images were obtained. DLP: 155 mGy-cm FINDINGS: The heart is normal in size. Coronary artery calcifications are present. No pericardial effusion. No gross mediastinal lymphadenopathy. Central airways are patent. Lungs are well aerated. Emphysematous changes again noted, more prominent on the left. Similar prominent bolus within the medial aspect of the left upper lobe. No lobar consolidation, pleural effusion or pneumothorax. A few 1 to 2 mm pulmonary nodules are stable. No new suspicious pulmonary nodules visualized. Visualized portion of the upper abdomen demonstrate surgical changes consistent with prior cholecystectomy. 6 mm hypodensity within the right kidney is too small to accurately characterize. Diffuse degenerative changes of the thoracic spine. Postsurgical changes of the left shoulder. IMPRESSION: Emphysematous changes of the lungs without lobar consolidation. No pleural effusion. No suspicious pulmonary nodules.
[2017-11-22 21:52] VITALS: BP 110/80
[2017-11-23 06:54] VITALS: BP 122/80
--- NOTE | 2017-11-23 07:05 | PN- Housestaff ---
See Addendum Subjective Follow-up For: COPD Subjective: No overnight events. She slept well without a room mate. Her breathing this morning is good compared to yesterday, almost at baseline. She endorses some anxiety but otherwise no other issues. Review of Systems Constitutional: Reports: no symptoms. EENTM: Reports: no symptoms. Cardiovascular: Reports: no symptoms. Respiratory: Reports: see HPI. Gastrointestinal: Reports: no symptoms. Genitourinary: Reports: no symptoms. Musculoskeletal: Reports: no symptoms. Skin: Reports: no symptoms. Neurological/Psychological: Reports: see HPI. Hematologic/Endocrine: Reports: no symptoms. Immunologic/Allergic: Reports: no symptoms. Objective Last 24 Hrs of Vital Signs/I&O Vital Signs Date Time Temp Pulse Resp B/P B/P Pulse O2 O2 Flow FiO2 Mean Ox Delivery Rate 11/23 0654 998.9 87 20 122/80 97 Nasal 3.0L Cannula 11/23 0000 Nasal 3.0L Cannula 11/22 2152 97.9 87 18 110/80 95 / 1603 93 Nasal 3.0L Cannula 11/22 1600 Nasal 3.0L Cannula 11/22 1420 98.3 98 20 112/70 94 11/22 0800 Nasal 3.0L Cannula 11/22 0744 91 Nasal 3.0L Cannula Intake & Output 11/23 0800 11/23 0000 11/22 1600 Intake Total 2020 Output Total Balance 2020 Intake, IV 20 Intake, Oral 2000 Number 0 Bowel Movements Physical Exam General Appearance: Alert, Oriented X3, Cooperative, No Acute Distress Cardiovascular: Regular Rate, Normal S1, Normal S2 Lungs: improved wheezing Abdomen: Normal Bowel Sounds, Soft, No Tenderness Extremities: No Edema, Normal Pulses, No Tenderness/Swelling Current Medications: Current Medications Sig/Renetta Start time Last Medication Dose Route Stop Time Status Admin Acetaminophen 975 MG Q8P PRN 11/20 0715 AC 11/20 PO 1545 Albuterol Sulfate 3 ML EVERY 4 HRS/AWAKE 11/20 0800 AC 11/22 INH 2008 Albuterol Sulfate 2 PUF Q4-6 PRN PRN 11/20 0115 AC INH Azithromycin 250 MG DAILY 11/20 1000 AC 11/22 PO 1001 Budesonide/ 2 PUF BID 11/20 1000 AC 11/22 Formoterol Fumarate INH 2139 Carisoprodol 350 MG Q6H 11/20 0700 AC 11/23 PO 0534 Ceftriaxone Sodium 1,000 MG DAILY 11/20 1000 AC 11/22 IV 1001 Enoxaparin Sodium 40 MG DAILY 11/20 1000 AC 11/21 SC 1015 Guaifenesin 600 MG Q12 11/20 1000 AC 11/22 PO 2139 Hydromorphone HCl 4 MG Q8P PRN 11/21 0915 AC 11/23 PO 0541 Methylprednisolone 60 MG Q8 11/22 1400 AC 11/23 IV 0534 Methylprednisolone 40 MG Q8 11/20 0600 DC 11/22 IV 0613 Morphine Sulfate 30 MG BID 11/20 1000 AC 11/22 PO 2140 Patient Medication 1 ED ONE ONE 11/22 1030 DC Teaching ED 11/22 1031 Ramelteon 8 MG AT BEDTIME 11/21 2200 AC 11/22 PO 2139 Tiotropium [place] 1 PUF DAILY 11/20 1000 AC 11/22 INH 1001 Assessment/Plan Assessment: Patient is a 57-year-old female with a past medical history of COPD on 2 L of nocturnal oxygen and rheumatoid arthritis here with COPD exacerbation and pneumonia. Problem list: 1. Acute on chronic hypoxic respiratory failure 2. COPD exacerbation 3. Underweight #Acute on chronic hypoxic respiratory failure: Patient presented with respiratory failure. She has a baseline oxygen requirement at night 2 L. Cultures have not grown except for yeast. Most likely secondary to COPD exacerbation. Repeat chest x-ray yesterday showed a new left-sided opacity. A CT scan of the chest was obtained and showed emphysematous changes but no acute consolidation or infiltrate concerning for pneumonia. This morning, her breathing has improved and she is approaching baseline. -Continue TRC nebs and oxygen therapy -Continue ceftriaxone and azithromycin, day 4. Consider discontinuing ceftriaxone. -Appreciate pulmonology recommendations -Follow cultures -Taper methylprednisolone 40 mg every 6 hours -Continue guaifenesin #Underweight: BMI is 18.6. Nutrition was consulted and recommends continuing regular diet with ensure supplementation -Regular diet with ensure supplementation #Chronic medical problems: CT TELEVISION PROGRAM DIRECTOR was reviewed to confirm chronic opioid therapy -Continue home medications DVT prophylaxis with enoxaparin Regular diet DNR/DNI Problem List: 1. COPD exacerbation Pain Ratin Pain Location: no Pain Goal: Remain pain free Pain Plan: see a/p Tomorrow's Labs & Rationales: no
--- NOTE | 2017-11-23 08:35 | PN- Pulmonary ---
Subjective HPI/Critical Care Issues: Patient feels improved with decreasing shortness of breath Objective Current Medications: Current Medications Sig/Renetta Start time Last Medication Dose Route Stop Time Status Admin Acetaminophen 975 MG Q8P PRN 11/20 0715 AC 11/20 PO 1545 Albuterol Sulfate 3 ML EVERY 4 HRS/AWAKE 11/20 0800 AC 11/23 INH 0810 Albuterol Sulfate 2 PUF Q4-6 PRN PRN 11/20 0115 AC INH Azithromycin 250 MG DAILY 11/20 1000 AC 11/22 PO 1001 Budesonide/ 2 PUF BID 11/20 1000 AC 11/22 Formoterol Fumarate INH 2139 Carisoprodol 350 MG Q6H 11/20 0700 AC 11/23 PO 0534 Ceftriaxone Sodium 1,000 MG DAILY 11/20 1000 AC 11/22 IV 1001 Enoxaparin Sodium 40 MG DAILY 11/20 1000 AC 11/21 SC 1015 Guaifenesin 600 MG Q12 11/20 1000 AC 11/22 PO 2139 Hydromorphone HCl 4 MG Q8P PRN 11/21 0915 AC 11/23 PO 0541 Methylprednisolone 40 MG Q6 11/23 1200 AC IV Methylprednisolone 60 MG Q8 11/22 1400 DC 11/23 IV 0534 Methylprednisolone 40 MG Q8 11/20 0600 DC 11/22 IV 0613 Morphine Sulfate 30 MG BID 11/20 1000 AC 11/22 PO 2140 Patient Medication 1 ED ONE ONE 11/22 1030 DC Teaching ED 11/22 1031 Ramelteon 8 MG AT BEDTIME 11/21 2200 AC 11/22 PO 2139 Tiotropium [place] 1 PUF DAILY 11/20 1000 AC 11/22 INH 1001 Vital Signs & I&O Last 24 Hrs of Vitals and I&O: Vital Signs Date Time Temp Pulse Resp B/P B/P Pulse O2 O2 Flow FiO2 Mean Ox Delivery Rate 11/23 0811 93 Nasal 3.0L Cannula 11/23 0744 98.9 11/23 0654 998.9 87 20 122/80 97 Nasal 3.0L Cannula 11/23 0000 Nasal 3.0L Cannula 11/22 2152 97.9 87 18 110/80 95 / 1603 93 Nasal 3.0L Cannula 11/22 1600 Nasal 3.0L Cannula 11/22 1420 98.3 98 20 112/70 94 Oxygen saturation 3 L 93% exam for chest shows diminished breath sounds but no wheezing cardiac exam shows regular S1 and S2 without murmurs chest x-ray from yesterday reviewed Impression/Plan Impression/Plan Impression/Plan: 57-year-old with severe COPD admitted with acute on chronic hypoxic respiratory failure community acquired pneumonia is clinically improved Recommendations: DC IV Solu-Medrol begin oral prednisone. Patient will need home oxygen both at rest and with exertion. Complete course of antibiotics. Anticipate discharge tomorrow
[2017-11-23 14:32] VITALS: BP 104/72
[2017-11-23] MEDS ORDERED: PREDNISONE10 M2 PO (14:59)
[2017-11-24 00:08] VITALS: BP 110/60
[2017-11-24 07:05] VITALS: BP 146/88
[2017-11-24] MEDS ORDERED: PREDNISONE10 M2 PO (07:20)
--- NOTE | 2017-11-24 07:20 | PN- Housestaff ---
See Addendum Subjective Follow-up For: COPD Subjective: No overnight events. She feels improved this morning, breathing at baseline, requesting to go home. No other issues. Review of Systems Constitutional: Reports: no symptoms. EENTM: Reports: no symptoms. Cardiovascular: Reports: no symptoms. Respiratory: Reports: see HPI. Gastrointestinal: Reports: no symptoms. Genitourinary: Reports: no symptoms. Musculoskeletal: Reports: no symptoms. Skin: Reports: no symptoms. Neurological/Psychological: Reports: no symptoms. Hematologic/Endocrine: Reports: no symptoms. Immunologic/Allergic: Reports: no symptoms. Objective Last 24 Hrs of Vital Signs/I&O Vital Signs Date Time Temp Pulse Resp B/P B/P Pulse O2 O2 Flow FiO2 Mean Ox Delivery Rate 11/24 704 98.1 74 20 146/88 98 Nasal 3.0L Cannula 11/24 0008 98.6 94 20 110/60 94 Nasal 3.0L Cannula 11/24 0000 Nasal 3.0L Cannula 11/23 1821 97 Nasal 3.0L Cannula 11/23 1600 Nasal 3.0L Cannula 11/23 1432 98.8 90 20 104/72 93 Nasal 3.0L Cannula 11/23 0811 93 Nasal 3.0L Cannula 11/23 0800 97 Nasal 3.0L Cannula 11/23 0744 98.9 Intake & Output 11/24 0800 11/24 0000 11/23 1600 Intake Total 884 483 5596 Output Total Balance 120 528 1023 Intake, Oral 119 889 1386 Number 0 0 Bowel Movements Physical Exam General Appearance: Alert, Oriented X3, Cooperative, No Acute Distress Cardiovascular: Regular Rate, Normal S1, Normal S2 Lungs: very mild wheezing Abdomen: Normal Bowel Sounds, Soft, No Tenderness Extremities: No Edema, Normal Pulses, No Tenderness/Swelling Current Medications: Current Medications Sig/Renetta Start time Last Medication Dose Route Stop Time Status Admin Acetaminophen 975 MG Q8P PRN 11/20 0715 AC 11/20 PO 1545 Albuterol Sulfate 3 ML EVERY 4 HRS/AWAKE 11/20 0800 AC 11/23 INH 2205 Albuterol Sulfate 2 PUF Q4-6 PRN PRN 11/20 0115 AC INH Azithromycin 250 MG DAILY 11/20 1000 AC 11/23 PO 0914 Budesonide/ 2 PUF BID 11/20 1000 AC 03/08 Formoterol Fumarate INH 2205 Carisoprodol 350 MG Q6H 11/20 0700 AC 11/24 PO 0633 Ceftriaxone Sodium 1,000 MG DAILY 11/20 1000 AC 11/23 IV 0914 Enoxaparin Sodium 40 MG DAILY 11/20 1000 AC 11/21 SC 1015 Guaifenesin 600 MG Q12 11/20 1000 AC 11/23 PO 2205 Hydromorphone HCl 4 MG Q8P PRN 11/21 0915 AC 11/23 PO 2226 Methylprednisolone 40 MG Q8 11/23 1400 DC 11/23 IV 11/24 0500 2205 Methylprednisolone 40 MG Q6 11/23 1200 DC IV Morphine Sulfate 30 MG BID 11/20 1000 AC 11/23 PO 2205 Prednisone 10 MG DAILY 12/09 1000 AC PO 12/12 0959 Prednisone 20 MG DAILY 12/06 1000 AC PO 12/09 0959 Prednisone 30 MG DAILY 12/03 1000 AC PO 12/06 0959 Prednisone 40 MG DAILY 11/30 1000 AC PO 12/03 0959 Prednisone 50 MG DAILY 11/27 1000 AC PO 11/30 0959 Prednisone 60 MG DAILY 11/24 1000 CAN PO 12/12 0959 Prednisone 60 MG DAILY 11/24 1000 AC PO 11/27 0959 Ramelteon 8 MG AT BEDTIME 11/21 2200 AC 11/23 PO 2205 Tiotropium [place] 1 PUF DAILY 11/20 1000 AC 11/23 INH 0913 Assessment/Plan Assessment: Patient is a 57-year-old female with a past medical history of COPD on 2 L of nocturnal oxygen and rheumatoid arthritis here with COPD exacerbation and pneumonia. Problem list: 1. Acute on chronic hypoxic respiratory failure 2. COPD exacerbation 3. Underweight #Acute on chronic hypoxic respiratory failure: Patient presented with respiratory failure. She has a baseline oxygen requirement at night 2 L. Cultures have not grown except for yeast. Most likely secondary to COPD exacerbation. Repeat chest x-ray yesterday showed a new left-sided opacity. A CT scan of the chest was obtained and showed emphysematous changes but no acute consolidation or infiltrate concerning for pneumonia. This morning, she is doing much better and wants to go home. -Continue TRC nebs and oxygen therapy -Continue ceftriaxone and azithromycin, day 5/5. No antibiotics at discharge -Appreciate pulmonology recommendations -Follow cultures -Prednisone taper: 60 mg today -Continue guaifenesin #Underweight: BMI is 18.6. Nutrition was consulted and recommends continuing regular diet with ensure supplementation -Regular diet with ensure supplementation #Chronic medical problems: CT RIPSAW OPERATOR was reviewed to confirm chronic opioid therapy -Continue home medications DVT prophylaxis with enoxaparin Regular diet DNR/DNI Problem List: 1. COPD exacerbation Pain Ratin Pain Location: no Pain Goal: Remain pain free Pain Plan: see a/p Tomorrow's Labs & Rationales: no
--- NOTE | 2017-11-24 07:21 | Patient Discharge Instructions ---
Discharge Instructions General Discharge Information You were seen/treated for: COPD exacerbation Watch for these problems: Fever, chest pain, shortness of breath Special Instructions: Please take all medications as directed. Please follow up with primary care and pulmonology. Diet Continue normal diet: Yes Activity Full Activity/No Limits: Yes Acute Coronary Syndrome Inclusion Criteria At DC or during hospital stay patient has or had the following: ACS DIAGNOSIS No Discharge Core Measures Meds if any: Prescribed or Continued at Discharge Meds if any: NOT Prescribed or Continued at Discharge Congestive Heart Failure Inclusion Criteria At DC or during hospital stay patient has or had the following: CHF DIAGNOSIS No Discharge Core Measures Meds if any: Prescribed or Continued at Discharge Meds if any: NOT Prescribed or Continued at Discharge Cerebrovascular accident Inclusion Criteria At DC or during hospital stay patient has or had the following: CVA/TIA Diagnosis No Discharge Core Measures Meds if any: Prescribed or Continued at Discharge Meds if any: NOT Prescribed or Continued at Discharge Venous thromboembolism Inclusion Criteria VTE Diagnosis No VTE Type NONE VTE Confirmed by (Test) NONE Discharge Core Measures - Per Current guidelines, there needs to be overlap - treatment for the first 5 days of Warfarin therapy. - If discharged on Warfarin prior to 5 days of - overlap therapy, the patient will need to be - assessed for post discharge needs including - *Post discharge parental anticoagulation - *Warfarin and/or parental anticoagulation education - *Follow up date to check INR post discharge At least 5 days overlap therapy as Inpatient No Meds if any: Prescribed or Continued at Discharge Note: Overlap Therapy is Warfarin and Anticoagulant Meds if any: NOT Prescribed or Continued at Discharge
--- NOTE | 2017-11-24 08:19 | PN- Pulmonary ---
Subjective HPI/Critical Care Issues: Shortness of breath is markedly improved Objective Current Medications: Current Medications Sig/Renetta Start time Last Medication Dose Route Stop Time Status Admin Acetaminophen 975 MG Q8P PRN 11/20 0715 AC 11/20 PO 1545 Albuterol Sulfate 3 ML EVERY 4 HRS/AWAKE 11/20 0800 AC 11/24 INH 0752 Albuterol Sulfate 2 PUF Q4-6 PRN PRN 11/20 0115 AC INH Azithromycin 250 MG DAILY 11/20 1000 AC 11/23 PO 0914 Budesonide/ 2 PUF BID 11/20 1000 AC 11/23 Formoterol Fumarate INH 2205 Carisoprodol 350 MG Q6H 11/20 0700 AC 11/24 PO 0633 Ceftriaxone Sodium 1,000 MG DAILY 11/20 1000 AC 11/23 IV 0914 Enoxaparin Sodium 40 MG DAILY 11/20 1000 AC 11/21 SC 1015 Guaifenesin 600 MG Q12 11/20 1000 AC 11/23 PO 2205 Hydromorphone HCl 4 MG Q8P PRN 11/21 0915 AC 11/23 PO 2226 Methylprednisolone 40 MG Q8 11/23 1400 DC 03/08 IV 11/24 0500 2205 Methylprednisolone 40 MG Q6 11/23 1200 DC IV Morphine Sulfate 30 MG BID 11/20 1000 AC 11/23 PO 2205 Prednisone 10 MG DAILY 12/09 1000 AC PO 12/12 0959 Prednisone 20 MG DAILY 12/06 1000 AC PO 12/09 0959 Prednisone 30 MG DAILY 12/03 1000 AC PO 12/06 0959 Prednisone 40 MG DAILY 11/30 1000 AC PO 12/03 0959 Prednisone 50 MG DAILY 11/27 1000 AC PO 11/30 0959 Prednisone 60 MG DAILY 11/24 1000 CAN PO 12/12 0959 Prednisone 60 MG DAILY 11/24 1000 AC PO 11/27 0959 Ramelteon 8 MG AT BEDTIME 11/21 2200 AC 11/23 PO 2205 Tiotropium [place] 1 PUF DAILY 11/20 1000 AC 11/23 INH 0913 Vital Signs & I&O Last 24 Hrs of Vitals and I&O: Vital Signs Date Time Temp Pulse Resp B/P B/P Pulse O2 O2 Flow FiO2 Mean Ox Delivery Rate 11/24 0757 95 Nasal 3.0L Cannula 11/24 704 98.1 74 20 146/88 98 Nasal 3.0L Cannula 11/24 0008 98.6 94 20 110/60 94 Nasal 3.0L Cannula 11/24 0000 Nasal 3.0L Cannula 11/23 1821 97 Nasal 3.0L Cannula 11/23 1600 Nasal 3.0L Cannula 11/23 1432 98.8 90 20 104/72 93 Nasal 3.0L Cannula Intake & Output 11/24 0800 11/24 0000 Intake Total 240 720 Output Total Balance 240 720 Intake, Oral 240 720 Number 0 Bowel Movements Since saturation 3 L 95-98% exam for chest shows diminished breath sounds are no wheezes cardiac exam shows regular S1 and S2 without murmurs Impression/Plan Impression/Plan Impression/Plan: 57-year-old woman admitted with exacerbation of COPD coming acquired pneumonia acute hypoxic respiratory failure is clinically improved and stable for discharge Recommendations: DC IV Solu-Medrol begin oral prednisone. Patient will need home oxygen both at rest and with exertion. Complete course of antibiotics. Evaluate patient for COPD wellness clinic patient appears stable for discharge from pulmonary standpoint
--- NOTE | 2017-11-24 09:31 | Discharge Summary ---
Visit Information Visit Dates Admission Date: 11/20/17 Discharge Date: 11/24/17 Hospital Course Course Attending Physician: Tunde Frias MD Primary Care Physician: Caden Jaffe MD Hospital Course: Patient is a 57-year-old female with a past medical history of COPD on 2 L of nocturnal oxygen and rheumatoid arthritis who presented with shortness of breath and was found to have a COPD exacerbation. Admission Data: O2 sats were 88% on RA, HR 90-100's, BP 130/73--> 88/53. Exam: Cachectic female, MMM, Neck supple, Chest b/l reduced breath sounds, no obvious bruises to right chest, Heart S1S2 regular. Labs: no leukocytosis, D-dimer <200, trop neg. Flu swab negative. CXR: mild infiltrate at right base. EKG: Sinus tachycardia, PVC's, Qtc 449. She was admitted to general medicine and treated for the following problems: 1. Acute on chronic hypoxic respiratory failure 2. COPD exacerbation 3. Underweight #Acute on chronic hypoxic respiratory failure: Patient presented with respiratory failure. She has a baseline oxygen requirement at night 2 L. Chest x -ray initially showed a mild infiltrate at the right base. Cultures did not grow except for yeast. She was placed on IV steroids, IV antibiotics, and nebulizer treatments. Repeat chest x-ray subsequently showed a new left-sided opacity. A CT scan of the chest was obtained and showed emphysematous changes but no acute consolidation or infiltrate concerning for pneumonia. This was most likely secondary to COPD exacerbation. She did receive a 5 day course of IV antibiotics and her breathing is much improved. She is being prescribed a slow prednisone taper and should follow up with primary care and pulmonology. #Underweight: BMI is 18.6. Nutrition was consulted and recommended continuing regular diet with ensure supplementation. The patient was counseled on dietary requirements and should follow up with primary care for this. #Chronic medical problems: CT CALL CENTER TRAINER was reviewed to confirm chronic opioid therapy. She was placed on an equivalent opioid regimen and her pain was well- controlled. Other home medications were also continued. Allergies: Coded Allergies: NO KNOWN ALLERGIES (06/03/12) Disposition Summary Disposition Principal Diagnosis: 1. Acute on chronic hypoxic respiratory failure Additional Diagnosis: 2. COPD exacerbation 3. Underweight Discharge Disposition: home or self care Discharge Instructions General Discharge Information Code Status: Full Code Patient's Diet: Regular diet with ensure supplementation Patient's Activity: As tolerated Follow-Up Instructions/Appts: Please take all medications as directed. Please follow-up with primary care and pulmonology. Medications at Discharge Discharge Medications: Continue taking these medications: Carisoprodol (Carisoprodol) 350 MG TABLET 1 Tablet ORAL 4XDAILY Qty = 120 Comments: Last Taken:10/29/16 Time:9AM Hydromorphone HCl (Hydromorphone HCl) 4 MG TABLET 1 Tablet ORAL THREE TIMES DAILY Qty = 90 Comments: Last Taken:10/29/16 Time:2AM Oxymorphone HCl (Oxymorphone HCl ER) 20 MG TAB.ER.12H 1 Tablet ORAL TWICE DAILY Qty = 60 Comments: Last Taken: Time:NOT GIVEN ON THIS ADMISSION Budesonide/Formoterol Fumarate (Symbicort 160-4.5 Mcg Inhaler) 160 MCG-4.5 MCG/ ACTUATION HFA.AER.AD 2 Puff Inhale through mouth TWICE DAILY Qty = 10 Comments: Last Taken:10/29/16 Time:9AM Ipratropium/Albuterol Sulfate (Iprat-Albut 0.5-3(2.5) MG/3 Ml) 0.5 MG-3 MG (2.5 MG BASE)/3 ML AMPUL.NEB 1 VIAL Inhale through mouth Q4H as needed for COPD Comments: Last Taken:10/29/16 Time:10AM Albuterol Sulfate (Proair Hfa) 90 MCG HFA.AER.AD 2 Puff Inhale through mouth EVERY 4-6 HOURS NEEDED as needed for COPD Comments: Last Taken:10/29/16 Time:10AM Codeine/Butalbital/Asa/Caffein (Ascomp With Codeine Capsule) 30 MG-50 MG-325 MG- 40 MG CAPSULE 1 Capsule ORAL as needed for MIGRAINES Qty = 30 Comments: Last Taken: Time:NOT GIVEN ON THIS ADMISSION Ascorbic Acid (Vitamin C) 500 MG TABLET 1 Tablet ORAL DAILY Comments: Last Taken: Time:NOT GIVEN ON THIS ADMISSION Cholecalciferol (Vitamin D3) (Vitamin D) 2,000 UNIT CAPSULE 1 Tablet ORAL DAILY Comments: Last Taken: Time:NOT GIVEN ON THIS ADMISSION Tiotropium [place] (Spiriva) 18 MCG CAP.W.DEV 1 Capsule Inhale through mouth DAILY Qty = 30 Instructions: . Comments: Last Taken: Time:NOT GIVEN ON THIS ADMISSION Start taking the following new medications: Prednisone (Prednisone) 10 MG TABLET 10 Milligram ORAL DAILY Qty = 45 No Refills Instructions: Please take 60mg daily from 11/25/17-11/26/17, 50mg daily from 11/27/17-11/29/17, 40mg daily from 11/30/17-12/02/17, 30mg daily from 12/03/17-12/05/17, 20mg daily from 12/06/17-12/08/17, 10mg daily from 12/09/17-12/11/17, then stop Copies To: Sol GRAY,[place]; Ld GRAY,[place]
== END 2017-11-24 12:38 | DRG 193 ==
LOC: ERH 22:24 → 2NB 11-20 00:53 → ERHI 11-20 00:53 → ENRESERV 11-20 03:06 → 2NB 11-20 03:44 → ENPENDDIS 11-24 13:00
PROVIDERS: Physician Assistant Medical; Student in an Organized Health Care Education/Training Program
DX: J18.9 Pneumonia, unspecified organism (principal); J96.21 Acute and chronic respiratory failure with hypoxia; I95.9 Hypotension, unspecified; Z99.81 Dependence on supplemental oxygen; E46 Unspecified protein-calorie malnutrition; J44.0 Chronic obstructive pulmonary disease with (acute) lower respiratory infection; J44.1 Chronic obstructive pulmonary disease with (acute) exacerbation; Z68.1 Body mass index [BMI] 19.9 or less, adult; R63.6 Underweight; M06.9 Rheumatoid arthritis, unspecified; F17.210 Nicotine dependence, cigarettes, uncomplicated; G89.29 Other chronic pain; Z66 Do not resuscitate; G89.4 Chronic pain syndrome; I49.3 Ventricular premature depolarization; Z79.891 Long term (current) use of opiate analgesic; Z87.01 Personal history of pneumonia (recurrent)
CPT/HCPCS: 2NSBP; 36592; 71045; 71046; 82436; 87040; 87070; 87071; 87449; 87450; 87804; 87804-59; 93005; 93010; 96374; 96375; 99291; J0456; J0696; J1650; J2920; J2930; J3490; J7040; J7060

== ENCOUNTER 2017-12-25 07:01 | Inpatient (IN) | payer OTHER ==
[~2017-12-25] VITALS: Ht 154.9 cm; Wt 50.8 kg
[2017-12-25 07:34] LABS: ABSOLUTE BASOPHIL COUNT 0 /CUMM (0.0-0.2); ABSOLUTE EOSINOPHIL COUNT 0 /CUMM (0.0-0.7); ABSOLUTE GRANULOCYTE CT 6.4 /CUMM (1.4-6.5); ABSOLUTE LYMPH COUNT 0.6 /CUMM (1.2-3.4); ABSOLUTE MONOCYTE COUNT 0.8 /CUMM (0.10-0.60); BASOPHIL % 0.1 % (0.0-2.0); EOSINOPHIL % 0 % (0-5); GRANULOCYTE % 82.5 % (42.2-75.2); HEMATOCRIT 40.9 % (37-47); MEAN CORPUSCULAR HGB 29.9 PG (27.0-31.0); MEAN CORPUSCULAR VOLUME 90.6 FL (81.0-99.0); MEAN PLATELET VOLUME 6.5 FL (7.4-10.4); PLATELET COUNT 224 /CUMM (130-400); RBC DISTRIBUTION WIDTH 15.7 % (11.5-14.5); RED BLOOD CELL CT 4.52 /CUMM (4.20-5.40); WHITE BLOOD CELL COUNT 7.7 /CUMM (4.8-10.8)
--- NOTE | 2017-12-25 07:47 | RADIOLOGY REPORT ---
EXAMINATION: XR PORTABLE CHEST CLINICAL INFORMATION: Chest pain COMPARISON: Chest x-ray most recent prior dated 10/25/2017 TECHNIQUE: Portable frontal view of the chest was obtained. FINDINGS: Cardiomediastinal silhouette is within normal limits. Mild prominence of interstitial markings may represent mild interstitial edema. Nodular opacity projecting upon the left lower lung likely representing prominent nipple shadow. No acute consolidation. No gross effusion.. IMPRESSION: Mild prominence of the interstitial markings may represent mild interstitial edema. No acute airspace disease.
--- NOTE | 2017-12-25 08:32 | RADIOLOGY REPORT ---
EXAMINATION: XR FOOT, LEFT CLINICAL INFORMATION: Possible fall, left foot pain. COMPARISON: None. TECHNIQUE: AP, lateral, and oblique views of the left foot were obtained. FINDINGS: There is anatomic alignment of the osseous structures. No fractures are demonstrated. There is narrowing of the MP joint of the first digit, with subchondral cyst formation and sclerosis centrally and laterally with lateral osteophytes. There is moderate periarticular osteopenia. There are no radiodense foreign bodies. Soft tissues appear normal. There is a moderate plantar calcaneal spur. IMPRESSION: 1. There are no acute fractures or subluxations. 2. There are degenerative changes at the first MP joint.
--- NOTE | 2017-12-25 09:11 | CT SCAN REPORT ---
EXAMINATION: CT CHEST WITHOUT CONTRAST CLINICAL INFORMATION: Fall, left rib pain. Assess for fracture. COMPARISON: X-ray earlier 12/25/[address] scan of the chest 11/22/2017. TECHNIQUE: Multidetector volumetric CT imaging of the chest was done. Axial MIP volume rendering provided. Sagittal and coronal reformatted images were obtained. 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 There are sequelae of cholecystectomy and there is a surgical anchor in the left shoulder. There is a sigmoid scoliosis of the thoracic spine. LUNGS: The lungs are hyperinflated, with emphysematous changes bilaterally, most extensive in the upper left lung. There are atelectatic changes in the right middle lobe and there are subpleural bullae in the medial right middle lobe. A large bullous is seen in the left upper lobe anteromedially. There is no focal consolidation. There are a few scattered small pulmonary nodules which are unchanged. MEDIASTINUM: The thyroid gland appears normal. There are atheromatous calcifications of the aorta and its branches. There are coronary artery calcifications. The heart is normal in size. There is no pericardial effusion. The central airways are patent. There is no hilar or mediastinal lymphadenopathy. PLEURA: There are no pleural effusions. No pneumothoraces are demonstrated. AXILLA: There is paucity of the subcutaneous fat throughout the chest. There are small bilateral axillary lymph nodes. No large chest wall masses are demonstrated. UPPER ABDOMEN: The study redemonstrates the sequelae of the cholecystectomy. The previously noted hypodensity in the right kidney is not appreciated on this noncontrast study. OSSEOUS STRUCTURES: The study redemonstrates the dextroscoliosis in the thoracic spine and the mild levoscoliosis in the upper lumbar spine. There is multilevel narrowing of intervertebral disc height. There are multilevel Schmorl's nodes at adjacent endplates in the mid thoracic spine, and there are multilevel marginal osteophytes. Bone mineralization is diffusely decreased. There are no acute compression fractures. Loss of vertebral body height of T9 is unchanged. As described above, there are postoperative changes of the left shoulder. There is irregularity of the lateral left ninth rib. There is also slight irregularity of the left seventh rib at the costochondral region. IMPRESSION: 1. There is irregularity of the costochondral junction of the left seventh rib and of the lateral left ninth rib, consistent with acute fractures. There are no pleural effusions or pneumothoraces. There is a thoracolumbar sigmoid scoliosis as described above. 2. The study redemonstrates emphysematous disease of the lungs bilaterally. No focal consolidation is demonstrated.
--- NOTE | 2017-12-25 09:17 | ED GENERAL ADULT ---
History of Present Illness General Chief Complaint: General Adult Stated Complaint: PNEUMONIA Source: patient, family, old records Exam Limitations: no limitations Vital Signs & Intake/Output Vital Signs & Intake/Output Vital Signs Date Time Temp Pulse Resp B/P B/P Pulse O2 O2 Flow FiO2 Mean Ox Delivery Rate 12/25 1145 98.2 116 20 104/71 97 Nasal 3.0L Cannula 12/25 928 97.7 106 20 96/68 99 Nasal 3.0L Cannula 12/25 0754 Nasal Cannula 12/25 732 99 Nasal 3.0L Cannula 12/25 726 97.7 97 20 90/60 98 Nasal 4.0L Cannula Allergies Coded Allergies: NO KNOWN ALLERGIES (06/03/12) Reconcile Medications Budesonide/Formoterol Fumarate (Symbicort 160-4.5 Mcg Inhaler) 160 MCG-4.5 MCG/ ACTUATION HFA.AER.AD 2 PUF INH BID COPD (Reported) Carisoprodol 350 MG TABLET 1 TAB PO 4XDAILY RA (Reported) Hydromorphone HCl 4 MG TABLET 1 TAB PO TID PAIN (Reported) Oxymorphone HCl (Oxymorphone HCl ER) 20 MG TAB.ER.12H 1 TAB PO BID PAIN ( Reported) Tiotropium [place] (Spiriva) 18 MCG CAP.W.DEV 1 CAP INH DAILY COPD . Core Measure Meds Pre-Hospital aspirin (in ED) Triage Note: PER FAMILY PT C/O CHEST PAIN WITH RECENT DIAGNOSIS OF PNEMONIA. PER FAMILY PT HAS BEEN IN BED FOR THE PAST 4 DAYS. PER FAMILY PT HAS R/A AND SHE HAS BEEN TAKING A LOT OF NARCOTICS. PT 02 DEPENDANT FAMILY HAS INCREASED 02 TO 3L VIA NC. Triage Nurses Notes Reviewed? yes Onset: Last week Duration: day(s):, constant, continues in ED Timing: recent history Injury Environment: home Severity: moderate, severe Modifying Factors: Improves With: rest. Worsens With: movement. Associated Symptoms: chest pain LMP (ages 10-50): post menopausal : No Patient currently breastfeeds: No HPI: 4-5 days prior to admission family reports patient has had episodes of decreased responsiveness confusion. She may have fallen during this time. She complains of left sided chest pain described as sharp worse with turning bending coughing deep breath and left foot discomfort feeling numb. She denies fever chills nausea vomiting diarrhea abdominal pain headache dysuria rash bleeding. The family is concerned about her chronic pain medication feeling she may be overdosing herself frequently running out of her medications 5-7 days before refill. Past History Travel History Traveled to [place] past 21 day No Medical History Any Pertinent Medical History? 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 No Review of Systems Review of Systems Constitutional: Reports: see HPI, weakness. EENTM: Reports: no symptoms. Respiratory: Reports: no symptoms. Cardiovascular: Reports: see HPI, chest pain. GI: Reports: no symptoms. Genitourinary: Reports: no symptoms. Musculoskeletal: Reports: no symptoms. Skin: Reports: no symptoms. Neurological/Psychological: Reports: see HPI, cognitive dysfunction, confusion. Hematologic/Endocrine: Reports: no symptoms. Immunologic/Allergic: Reports: no symptoms. All Other Systems: Reviewed and Negative Physical Exam Physical Exam General Appearance: well developed/nourished, alert, awake, anxious, moderate distress, thin Head: atraumatic, normal appearance Eyes: Bilateral: normal appearance, PERRL, EOMI. Ears, Nose, Throat: normal pharynx, normal ENT inspection Neck: normal inspection, supple, full range of motion, no midline tenderness Respiratory: lungs clear, rhonchi, left chest wall tenderness without crepitus or step-off Cardiovascular: regular rate/rhythm, normal peripheral pulses, tachycardia, norml femoral pulses equa Peripheral Pulses: 4+ carotid (R), 4+ carotid (L) Gastrointestinal: normal bowel sounds, soft, non-tender, no organomegaly Back: normal inspection, normal range of motion, no vertebral tenderness Extremities: normal inspection, normal capillary refill, normal range of motion, no edema, no ligament instability Neurologic/Psych: no motor/sensory deficits, awake, alert, oriented x 3, normal gait, normal mood/affect, group controller II-XII nml as tested Reflexes: 2+: bicep (R), bicep (L). Skin: intact, normal color, warm/dry Lymphatic: no anterior cervical brant Core Measures ACS in differential dx? Yes CVA/TIA Diagnosis: No Sepsis Present: No Sepsis Focused Exam Completed? No Progress Differential Diagnoses I considered the following diagnoses in my evaluation of the patient: Pneumonia rib fracture medication overdose GA Plan of Care: Orders Procedure Date/time Status CBC WITHOUT DIFFERENTIAL 12/26 06 Active BASIC ELECTROLYTES PLUS BUN&CR 12/26 06 Active Regular Diet 12/25 L Active Pathway - chart 12/25 115 Active ECHOCARDIOGRAM 12/25 115 Active CTA CHEST-PULMONARY EMBOLISM 12/25 1153 Active Pathway - chart 12/25 0949 Active Patient Data 12/25 0836 Active OXYGEN SETUP (GEN) 12/25 826 Active Saline Lock 12/25 826 Active Admit to inpatient 12/25 0827 Active Vital Signs 12/25 826 Active Activity/Ambulation 12/25 826 Active Code Status 12/25 826 Active ARTERIAL BLOOD GAS (GEN) 12/25 0803 Complete URINE DRUG SCREEN FOR ER ONLY 12/25 08 Active URINALYSIS 12/25 08 Active TROPONIN LEVEL 12/25 0722 Complete MAGNESIUM 12/25 0722 Complete COMPREHENSIVE METABOLIC PANEL 12/25 0722 Complete CHOLESTEROL 12/25 0722 Complete CBC WITHOUT DIFFERENTIAL 12/25 0722 Complete EKG 12/25 0707 Active US-EXT BILAT VENOUS DOPPLER 12/25 UNK Active US-DUPLEX SCAN LOWER EXT ARTER 12/25 UNK Active TRC EVALUATION (GEN) 12/25 UNK Active House Staff 12/25 UNK Active VTE Mechanical Prophylaxis 12/25 UNK Active Hemoccult 12/25 UNK Active Current Medications Sig/Renetta Start time Last Medication Dose Stop Time Status Admin Aspirin 81 MG DAILY 12/26 1000 AC (Aspirin) Atorvastatin Calcium 40 MG 1700 12/25 1700 AC (Lipitor) Methylprednisolone 40 MG Q8 12/25 1400 AC (Solumedrol) 12/29 0601 Heparin Sodium 25,000 UNIT Q24H 12/25 1200 AC (Porcine) (Heparin) Sodium Chloride 500 ML Laboratory Tests 12/25/17 0835: pH 7.38, pCO2 52 H, pO2 88, HCO3 30 H, ABG O2 Sat (Measured) 95.0 L, P-50 ( Temp Corrected) N, Carboxyhemoglobin 1.1 L, O2 Concentration % 3L, Temperature 97.7, O2 Delivery Method N/C, Phlebotomy Draw Site RIGHT RADIAL 12/25/17 0722: Anion Gap 11, Estimated GFR > 60, BUN/Creatinine Ratio 25.0, Glucose 123 H, Calcium 8.6, Magnesium 1.8, Total Bilirubin 0.6, AST 283 H, ALT 103 H, Alkaline Phosphatase 56, Troponin I 1.23 *H, Total Protein 6.2 L, Albumin 3.8, Globulin 2.4, Albumin/Globulin Ratio 1.6, Cholesterol 146, CBC w Diff NO MAN DIFF REQ, RBC 4.52, MCV 90.6, MCH 29.9, MCHC 33.0, RDW 15.7 H, MPV 6.5 L, Gran % 82.5 H, Lymphocytes % 7.6 L, Monocytes % 9.8 H, Eosinophils % 0, Basophils % 0.1, Absolute Granulocytes 6.4, Absolute Lymphocytes 0.6 L, Absolute Monocytes 0.8 H, Absolute Eosinophils 0, Absolute Basophils 0 Diagnostic Imaging: Viewed by Me: Radiology Read, CT Scan. Discussed w/RAD: Radiology Read, CT Scan. Radiology Impression: 1. There is irregularity of the costochondral junction of the left seventh rib and of the lateral left ninth rib, consistent with acute fractures. There are no pleural effusions or pneumothoraces. There is a thoracolumbar sigmoid scoliosis as described above. 2. The study redemonstrates emphysematous disease of the lungs bilaterally. No focal consolidation is demonstrated. Initial ED EKG: normal axis, normal intervals, normal p-waves, normal sinus rhythm, nonspecific ST T wave chg Prior EKG: changed Rhythm Strip: sinus tachycardia Comments: D/W Dr. Arriaga to see as consult. Departure Departure Time of Disposition: 945 Disposition: STILL A PATIENT Condition: Fair Clinical Impression Primary Impression: Elevated troponin Secondary Impressions: COPD (chronic obstructive pulmonary disease), Ribs, multiple fractures Referrals: [facility],[place] (PCP/Family) Departure Forms: Customer Survey General Discharge Information Admission Note Spoke With: Apergis MD,Yiannis Documentation of Exam: Documentation of any treatments & extenuating circumstances including Concerns Regarding Discharge (functional status, medication knowledge or non-compliance, living conditions, etc.) that warrant an admission rather than observation: Supplemental oxygen serial beta agonist nebs serial lab exam serial EKG cardiac monitoring medication adjustment psychiatric evaluation pain management evaluation continuing care discharge planning Critical Care Note Critical Care Note Critical Care Time: 30-74 min (45)
--- NOTE | 2017-12-25 09:39 | History & Physical ---
See Addendum Alejo Magaña 12/25/17 0939: General Information and HPI MD Statement: I have seen and personally examined CHARMAINE WADE and documented this H&P. The patient is a 57 year old F who presented with a patient stated chief complaint of [SOB, pain on the left side of the chest]. Source of Information: patient, old records Exam Limitations: no limitations History of Present Illness: Mrs. Wade is a 57 yo lady with PMHx. of severe COPD on 2 L O2 at home, rheumatoid arthritis, chronic pain syndrome, currently every day smoker (Few cigarettes a day ) presented to emergency department with worsening shortness of breath. Patient noticed worsening of her breathing over the last 3 days, she is having nebulizer at home, she to the treatment every day with no improvement, she denies using albuterol inhalers, she is also using her Symbicort and Bozrah via daily with no improvement, patient has chronic cough and her baseline, but recently she noticed her cough is productive of yellowish secretion, she she also complained of left side chest pain more to the left back, which causes limitation on her breathing, she is not able to take deep breath due to the pain , this pain started only yesterday, it's severe, about 9/10, sharp in nature, mainly in the left side and back, aggravated by deep breath and movement, no relieving factor. She also complained of bilateral lower extremity numbness, and decreased sensation mainly on the left leg, she feels weak in her bilateral lower extremity, and also she is concerned about increased coldness of her bilateral lower extremity. Patient reported that over the last 2 days she checked her pulse ox at home which was low, the day before yesterday she checked her pulse ox with minimal exertion and she found it to be 75%, and today at home her pulse ox was in 80s which not improved with nebulizer treatment. Patient denies any fall, she don't know what caused the pain in the left side of her chest, she lives at home with her daughters and son. Patient denies any side effect of opioid medication such as drowsiness, or fall, she stated that she has been on this medication for years with no problem. upon further questioning she mentioned that the pain is mainly in the epigastric region radiating to the back, with no other associated symptoms. She denies alcohol use. She is [facility]. Patient denies any palpitation, dizziness, headache, vision changes, substernal chest pain, fever, chills, nausea, vomitng, decrease appetite, and there is no change in urinary or bowel habits. Allergies/Medications Allergies: Coded Allergies: NO KNOWN ALLERGIES (06/03/12) Home Med list Budesonide/Formoterol Fumarate (Symbicort 160-4.5 Mcg Inhaler) 160 MCG-4.5 MCG/ ACTUATION HFA.AER.AD 2 PUF INH BID COPD (Reported) Carisoprodol 350 MG TABLET 1 TAB PO 4XDAILY RA (Reported) Hydromorphone HCl 4 MG TABLET 1 TAB PO TID PAIN (Reported) Oxymorphone HCl (Oxymorphone HCl ER) 20 MG TAB.ER.12H 1 TAB PO BID PAIN ( Reported) Tiotropium [employer] (Spiriva) 18 MCG CAP.W.DEV 1 CAP INH DAILY COPD . 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 Ambulation: independent IADLs Independent: shopping, housework, finances, food prep, telephone, transportation , medication admin. Review of Systems Review of Systems Constitutional: Reports: no symptoms. EENTM: Reports: no symptoms. Cardiovascular: Reports: see HPI. Respiratory: Reports: cough, short of breath, sputum production, wheezing. GI: Reports: no symptoms. Genitourinary: Reports: no symptoms. Musculoskeletal: Reports: no symptoms. Skin: Reports: no symptoms. Neurological/Psychological: Reports: numbness, tingling (BLE), weakness. Hematologic/Endocrine: Reports: no symptoms. Immunologic/Allergic: Reports: no symptoms. All Other Systems: Reviewed and Negative Exam & Diagnostic Data Last 24 Hrs of Vital Signs/I&O Vital Signs Date Time Temp Pulse Resp B/P B/P Pulse O2 O2 Flow FiO2 Mean Ox Delivery Rate 12/25 1145 98.2 116 20 104/71 97 Nasal 3.0L Cannula 12/25 928 97.7 106 20 96/68 99 Nasal 3.0L Cannula 12/25 0754 Nasal Cannula 12/25 0733 99 Nasal 3.0L Cannula 12/25 07 97.7 97 20 90/60 98 Nasal 4.0L Cannula Intake & Output 12/25 1600 12/25 0800 12/25 0000 Intake Total Output Total Balance Patient 110 lb Weight Weight Estimated Measurement Method Physical Exam General Appearance Alert, Oriented X3, Cooperative, Moderate Distress Skin No Rashes, No Breakdown, No Significant Lesion HEENT Atraumatic (THE), PERRLA, EOMI, Mucous Membr. moist/pink Neck Supple, No JVD, No thryomegaly Lymphatic Axillary nl, Cervical nl Cardiovascular Regular Rate, Normal S1, Normal S2, No Murmurs, TACHYCARDIA Lungs SILENT CHEST Abdomen Normal Bowel Sounds, Soft, No Tenderness, No Hepatospenomegaly Neurological Normal Speech, Normal Tone, Cranial Nerves 3-12 NL, DECREASED STRENGTH IN BILATERAL LOWER EXTREMITY 3/5 Extremities No Edema, RREDUCE PULSE IN BILATERAL LOWER EXTREMITY, COLDNESS Vascular REDUCE PULSE Last 24 Hrs of Labs/Norm: Laboratory Tests 12/25/17 0835: pH 7.38, pCO2 52 H, pO2 88, HCO3 30 H, ABG O2 Sat (Measured) 95.0 L, P-50 ( Temp Corrected) N, Carboxyhemoglobin 1.1 L, O2 Concentration % 3L, Temperature 97.7, O2 Delivery Method N/C, Phlebotomy Draw Site RIGHT RADIAL 12/25/17 07: Anion Gap 11, Estimated GFR > 60, BUN/Creatinine Ratio 25.0, Glucose 123 H, Calcium 8.6, Magnesium 1.8, Total Bilirubin 0.6, AST 283 H, ALT 103 H, Alkaline Phosphatase 56, Troponin I 1.23 *H, Total Protein 6.2 L, Albumin 3.8, Globulin 2.4, Albumin/Globulin Ratio 1.6, Cholesterol 146, APTT Pending, CBC w Diff NO MAN DIFF REQ, RBC 4.52, MCV 90.6, MCH 29.9, MCHC 33.0, RDW 15.7 H, MPV 6.5 L, Gran % 82.5 H, Lymphocytes % 7.6 L, Monocytes % 9.8 H, Eosinophils % 0, Basophils % 0.1, Absolute Granulocytes 6.4, Absolute Lymphocytes 0.6 L, Absolute Monocytes 0.8 H, Absolute Eosinophils 0, Absolute Basophils 0 Diagnostic Data EKG Results Sinus tachycardia 115, there is a lot of artifact with some EKG changes, and there is what appear as ST elevation in V1 and V2 and V3, slight depression in V4 CXR Results IMPRESSION: Mild prominence of the interstitial markings may represent mild interstitial edema. No acute airspace disease. Other Results IMPRESSION: 1. There is irregularity of the costochondral junction of the left seventh rib and of the lateral left ninth rib, consistent with acute fractures. There are no pleural effusions or pneumothoraces. There is a thoracolumbar sigmoid scoliosis as described above. 2. The study redemonstrates emphysematous disease of the lungs bilaterally. No focal consolidation is demonstrated. Assessment/Plan Assessment: Mrs. Wade is a 57 yo lady with PMHx. of severe COPD on 2 L O2 at home, rheumatoid arthritis, chronic pain syndrome, currently every day smoker (Few cigarettes a day ) presented to emergency department with worsening shortness of breath. Admitted to telemetry floor for positive troponin, acute hypoxic respiratory failure, sinus tachycardia to rule out ACS, to rule out PE and for COPD exacerbation Assessment: #Positive troponin to rule out ACS #Acute hypoxic respiratory failure in the setting of Sinus tachycardia, moderate risk on Wells criteria, needs to rule out PE, COPD exacerbation is also contribute to the respiratory failure #Transaminitis, epigastric pain #Chronic pain syndrome #History of rheumatoid arthritis #Smoker Plan: * We'll admit the patient to telemetry floor * Case already discussed with James Arriaga MD, will trend troponin and EKG. We will start full anticoagulation with IV heparin * Per family and marriage counsellor recommendation aspirin, it's also ordered * For statin family and marriage counsellor recommend starting the patient if no contraindication however patient had transaminitis, I will order one dose only of Lipitor 40 mg, will repeat her LFTs tomorrow if any worsening assess the need for statin * Well order CTA to rule out PE * Will check by bilateral lower extremity arterial and venous Doppler * CT findings of irregularity and possible fracture of the seventh and ninth rib discuss with Dr. Zhang is going to see the patient * Patient report sever epigastric pain, she has a hx. of transaminitis, givent that the patient on high dose opiod, pancreatitis needs to be ruled out, will order CT abdomen/ pelvis * The etiology of possible rib fracture is unknown, please monitor her mental status is any worsening order CT head * We'll start the patient on IV Solu-Medrol 40 mg every 8 * TRC/nebulizer * CT EDUCATIONAL PSYCHOLOGY TEACHER was reviewed to confirm chronic opioid therapy, will continue her home dose * Will check echocardiogram * Pulmonology consult with Dr. Gore DVT prophylaxis with IV heparin She is full code As Ranked By This Provider Problem List: 1. Rheumatoid arthritis 2. COPD exacerbation 3. Acute respiratory failure with hypoxia and hypercapnia 4. Elevated troponin Core Measures/Misc (06/04) Acute Coronary Syndrome ACS Diagnosis: No Congestive Heart Failure Congestive Heart Failure Diagnosis No Cerebrovascular Accident CVA/TIA Diagnosis: No VTE (View Protocol) VTE Risk Factors Acute Medical Illness No Mechanical VTE Prophylaxis d/t N/A MechProphylax Ordered No VTE Pharm Prophylaxis d/t NA PharmProphylax ordered Sepsis (View protocol) Sepsis Present: No Jose D Osborn 12/25/17 1324: Attending MD Review Statement Attending Statement Attending MD Statement: examined this patient, discuss w/resident/PA/UTILITY SERVICE WORKER, agreed w/resident/PA/UTILITY SERVICE WORKER, discussed with family, reviewed EMR data (avail), discussed with nursing, discussed with case mgmt, reviewed images, amended to note
--- NOTE | 2017-12-25 12:11 | Cons- Cardiology ---
General Information and HPI Consulting Request Date of Consult: 12/25/17 Requested By: Tunde Frias MD Reason for Consult: Elevated troponin Source of Information: patient, family, old records History of Present Illness: This is a 57-year-old female with a past medical history of COPD and arthritis who presented to [facility] with a chief complaint of a new onset moderate intensity left-sided chest pain which is worse with deep inspiration; denies worsening shortness of breath above baseline but does find it difficult to take a deep breath. Denies reproducibility to palpation and also denies any recent falls or thoracic trauma. She did have a hospitalization in November for COPD. Per family she recently had some lower extremity weakness with some swelling which seems to have improved; denied associated palpitations, orthopnea, or paroxysmal nocturnal dyspnea. Still has pleuritic chest pain on my interview with her in the emergency room. Allergies/Medications Allergies: Coded Allergies: NO KNOWN ALLERGIES (06/03/12) Home Med List: Budesonide/Formoterol Fumarate (Symbicort 160-4.5 Mcg Inhaler) 160 MCG-4.5 MCG/ ACTUATION HFA.AER.AD 2 PUF INH BID COPD (Reported) Carisoprodol 350 MG TABLET 1 TAB PO 4XDAILY RA (Reported) Hydromorphone HCl 4 MG TABLET 1 TAB PO TID PAIN (Reported) Oxymorphone HCl (Oxymorphone HCl ER) 20 MG TAB.ER.12H 1 TAB PO BID PAIN ( Reported) Tiotropium [place] (Spiriva) 18 MCG CAP.W.DEV 1 CAP INH DAILY COPD . Current Medications: Current Medications Sig/Renetta Start time Last Medication Dose Route Stop Time Status Admin Albuterol Sulfate 3 ML ONCE ONE 12/25 729 DC 12/25 INH 12/25 0631 0754 Heparin Sodium 5,000 UNIT ONCE ONE 12/25 1200 UNVr (Porcine) IV 12/25 1201 Heparin Sodium 25,000 UNIT Q24H 12/25 1200 UNVr (Porcine) IV Sodium Chloride 500 ML Ipratropium [place] 2.5 ML ONCE ONE 12/25 0630 DC 12/25 INH 12/25 730 0753 Methylprednisolone 40 MG Q8 12/25 1400 AC IV 12/29 0601 Review of Systems Review of Systems: Review of systems as per HPI. The remainder of a 10 point review of systems was reviewed and was otherwise negative. 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 Ambulation: independent IADLs Independent: shopping, housework, finances, food prep, telephone, transportation , medication admin. Exam & Diagnostic Data Vital Signs and I&O Vital Signs Date Time Temp Pulse Resp B/P B/P Pulse O2 O2 Flow FiO2 Mean Ox Delivery Rate 12/25 1145 98.2 116 20 104/71 97 Nasal 3.0L Cannula 12/25 928 97.7 106 20 96/68 99 Nasal 3.0L Cannula 12/25 0754 Nasal Cannula 12/25 0733 99 Nasal 3.0L Cannula 12/25 0727 97.7 97 20 90/60 98 Nasal 4.0L Cannula Intake & Output 12/25 1600 12/25 0000 12/24 1600 12/24 0000 Intake Total Output Total Balance Patient 99 lb 15.99 oz Weight Weight Estimated Measurement Method Physical Exam: General: no apparent distress. Alert. On nasal cannula Eyes: No obvious scleral icterus. HEENT: No jugular venous distention or abnormal jugular venous pulsations. Cardiovascular: Normal intensity S1/S2. Regular tachycardia Respiratory: Mildly decreased air entry bilaterally without rales Abdomen: no guarding or rebound tenderness. Musculoskeletal: No clubbing or cyanosis noted Skin: Warm Neurologic: Mildly lethargic but responsive and following commands easily Labs/Norm Results: Laboratory Tests 12/25 12/25 0835 0722 Blood Gas pH (7.35 - 7.45 PH) 7.38 pCO2 (35 - 45 TORR) 52 H pO2 (80 - 100 TORR) 88 HCO3 (21 - 28 MEQ/L) 30 H ABG O2 Sat (Measured) (>96.0 %) 95.0 L P-50 (Temp Corrected) N Carboxyhemoglobin (1.5 - 5.0 %) 1.1 L O2 Concentration % 3L Temperature (97.0 - 100.0 FARH) 97.7 O2 Delivery Method N/C Chemistry Sodium (137 - 145 mmol/L) 139 Potassium (3.5 - 5.1 mmol/L) 4.1 Chloride (98 - 107 mmol/L) 94 L Carbon Dioxide (22 - 30 mmol/L) 34 H Anion Gap (5 - 16) 11 BUN (7 - 17 mg/dL) 15 Creatinine (0.5 - 1.0 mg/dL) 0.6 Estimated GFR (>60 ml/min) > 60 BUN/Creatinine Ratio (7 - 25 %) 25.0 Glucose (65 - 99 mg/dL) 123 H Calcium (8.4 - 10.2 mg/dL) 8.6 Magnesium (1.6 - 2.3 mg/dL) 1.8 Total Bilirubin (0.2 - 1.3 mg/dL) 0.6 AST (14 - 36 U/L) 283 H ALT (9 - 52 U/L) 103 H Alkaline Phosphatase (<127 U/L) 56 Troponin I (< 0.11 ng/ml) 1.23 *H Total Protein (6.3 - 8.2 g/dL) 6.2 L Albumin (3.5 - 5.0 g/dL) 3.8 Globulin (1.9 - 4.2 gm/dL) 2.4 Albumin/Globulin Ratio (1.1 - 2.2 %) 1.6 Cholesterol (<200 MG/DL) 146 Hematology CBC w Diff NO MAN DIFF REQ WBC (4.8 - 10.8 /CUMM) 7.7 RBC (4.20 - 5.40 /CUMM) 4.52 Hgb (12.0 - 16.0 G/DL) 13.5 Hct (37 - 47 %) 40.9 MCV (81.0 - 99.0 FL) 90.6 MCH (27.0 - 31.0 PG) 29.9 MCHC (33.0 - 37.0 G/DL) 33.0 RDW (11.5 - 14.5 %) 15.7 H Plt Count (130 - 400 /CUMM) 224 MPV (7.4 - 10.4 FL) 6.5 L Gran % (42.2 - 75.2 %) 82.5 H Lymphocytes % (20.5 - 51.1 %) 7.6 L Monocytes % (1.7 - 9.3 %) 9.8 H Eosinophils % (0 - 5 %) 0 Basophils % (0.0 - 2.0 %) 0.1 Absolute Granulocytes (1.4 - 6.5 /CUMM) 6.4 Absolute Lymphocytes (1.2 - 3.4 /CUMM) 0.6 L Absolute Monocytes (0.10 - 0.60 /CUMM) 0.8 H Absolute Eosinophils (0.0 - 0.7 /CUMM) 0 Absolute Basophils (0.0 - 0.2 /CUMM) 0 Miscellaneous Phlebotomy Draw Site RIGHT RADIAL Diagnostic Data EKG Results Tracing was personally reviewed and shows sinus tachycardia 115 bpm with PVC and some artifact CXR Results Mild prominence of the interstitial markings may represent mild interstitial edema. No acute airspace disease. Other Results Chest CT 1. There is irregularity of the costochondral junction of the left seventh rib and of the lateral left ninth rib, consistent with acute fractures. There are no pleural effusions or pneumothoraces. There is a thoracolumbar sigmoid scoliosis as described above. 2. The study redemonstrates emphysematous disease of the lungs bilaterally. No focal consolidation is demonstrated. Assessment/Plan Assessment/Plan 1. Chest pain 2. Elevated troponin 3. Sinus tachycardia 4. COPD 5. ? rib fx The patient's chest discomfort is of unclear etiology but given a pleuritic component along with sinus tachycardia and elevated troponin we need to exclude the possibility of acute pulmonary embolism; the patient should undergo stat CT angiography; I have also recommended initiating intravenous heparin; non-ST elevation myocardial infarction is in the differential and also recommend adding aspirin and statin therapy along with obtaining a transthoracic echocardiogram and trending serial troponins while on telemetry. Unclear if the rib fracture reported on CT scan is accurate as not reported on chest x-ray and the patient denies any recent thoracic trauma or falls; will continue evaluation. The above recommendations were discussed personally in detail with the MOD. Tim Arriaga MD [facility] Consult Acknowledgment - Thank you for your consult request.
[2017-12-25 12:50] LABS: PTT 34 SEC (25-37)
--- NOTE | 2017-12-25 13:30 | CT SCAN REPORT ---
EXAMINATION: CT ANGIOGRAM OF THE CHEST WITH AND WITHOUT CONTRAST (CT PULMONARY ANGIOGRAM FOR PE) CLINICAL INFORMATION: Assess for pulmonary embolus. Desaturating with positive troponin. COMPARISON: CT scan of the chest without contrast earlier 12/25/[address] scan of the chest 11/22/2017. TECHNIQUE: Prior to contrast administration, noncontrast localization images were obtained. Subsequently, multidetector volumetric imaging was performed from the thoracic inlet to below the diaphragms following the administration of 94 mL Optiray 320 intravenous contrast. No contrast reaction reported. Sagittal, coronal, and MIP oblique sagittal reformatted images were obtained on the CT workstation, uploaded to PACS, and reviewed. Total exam dose-length product 195.02 mGy-cm. FINDINGS: QUALITY OF STUDY/CONTRAST BOLUS: Satisfactory PULMONARY ARTERIES: There are no central or segmental pulmonary thromboemboli. THORACIC AORTA: The thoracic aorta has normal caliber. There is no evidence of dissection or aneurysm. There are atheromatous calcifications of the aorta. The root of the aorta measures 3.5 cm at the level of the main pulmonary artery. LUNG: There is no focal consolidation. The lungs are hyperinflated, with emphysematous changes bilaterally, most extensive in the upper left lung. There are atelectatic changes in the right middle lobe and there are subpleural bullae in the medial right middle lobe. A large bullous is seen in the left upper lobe anteromedially. There are a few scattered small pulmonary nodules which are unchanged. PLEURA: There are no pleural effusions. No pneumothoraces are seen. MEDIASTINUM: The thyroid gland appears normal. There are coronary artery calcifications. The heart is not enlarged. There is no pericardial effusion. The central airways are patent. There is no hilar or mediastinal lymphadenopathy. No evidence of septal bowing or right heart strain. CHEST WALL/AXILLA: There is paucity of the subcutaneous fat in the chest wall. There is no axillary lymphadenopathy comment there are no chest wall masses. OSSEOUS STRUCTURES: As presented described there is slight irregularity of the anterior aspect of the left seventh rib at the costochondral junction. The presented described irregularity of the lateral left ninth rib is likely due to motion artifact, as this finding is not demonstrated on the current study. There are no acute osseous findings in the thoracic spine. UPPER ABDOMEN: Unremarkable. There is no reflux of contrast into the hepatic veins to suggest elevated right heart pressures. IMPRESSION: 1. There are no pulmonary thrombi emboli. 2. There is evidence of COPD and there are atelectatic changes in the right middle lobe. 3. The previously described irregularity of the left lateral ninth rib is likely artifactual. Irregularity of the anterior left seventh rib may be consistent with a nondisplaced fracture. VTE: Negative.
--- NOTE | 2017-12-25 15:04 | Cons- Thoracic Surgery ---
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 She denies falling. She presented to the ED with similar complaints as well as dyspnea. Imaging in the ED included a CXR which revealed left sided 7th and 9th acute rib fractures. A PE study was performed as well, which states the 9th rib is artifact and the 7th rib has irregularity. Thoracic surgery called to comment on imaging reports. Patient remains on 3LNC and continues to endorse chest pain with inspiration, back pain, inability to walk due to pain in her bilateral lower extremities, and buttock pain. Of note, she was also found to have positive troponins andw as was started on a heparin gtt in ED. Allergies/Medications Allergies: Coded Allergies: NO KNOWN ALLERGIES (06/03/12) Home Med List: Budesonide/Formoterol Fumarate (Symbicort 160-4.5 Mcg Inhaler) 160 MCG-4.5 MCG/ ACTUATION HFA.AER.AD 2 PUF INH BID COPD (Reported) Carisoprodol 350 MG TABLET 1 TAB PO 4XDAILY RA (Reported) Hydromorphone HCl 4 MG TABLET 1 TAB PO TID PAIN (Reported) Oxymorphone HCl (Oxymorphone HCl ER) 20 MG TAB.ER.12H 1 TAB PO BID PAIN ( Reported) Tiotropium [place] (Spiriva) 18 MCG CAP.W.DEV 1 CAP INH DAILY COPD . 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 Ambulation: independent IADLs Independent: shopping, housework, finances, food prep, telephone, transportation , medication admin. Review of Systems Review of Systems: see HPI Exam & Diagnostic Data Vital Signs and I&O Vital Signs Date Time Temp Pulse Resp B/P B/P Pulse O2 O2 Flow FiO2 Mean Ox Delivery Rate 12/25 1351 98.5 106 18 86/60 95 Nasal 3.0L Cannula 12/25 1145 98.2 116 20 104/71 97 Nasal 3.0L Cannula 12/25 0929 97.7 106 20 96/68 99 Nasal 3.0L Cannula 12/25 0754 Nasal Cannula 12/25 0733 99 Nasal 3.0L Cannula 12/25 0727 97.7 97 20 90/60 98 Nasal 4.0L Cannula Intake & Output 12/25 1600 12/25 0812/25 0000 12/24 1600 12/24 0000 Intake Total Output Total Balance Patient 110 lb Weight Weight Estimated Measurement Method Physical Exam: Gen: AAOx3 in NAD. Cor: Tachycardic. Reg rhythm. Lungs: CTA tk. No reproducible chest tenderness on exam. No ecchymosis noted to lateral chest. Abd: soft, NT, ND, +BS x4 Back: tenderness to palpation over lumbar spine. No deep tissue injuries noted to buttock. Ext: palpable DP pulses tk. Diminished sensation to medial aspects of tk feet R>L. Feet cool to touch. Cap refill <2 seconds. Motor exam grossly intact- able to dorsiflex and plantar flex 5/5. Imaging Results: EXAMINATION: XR PORTABLE CHEST CLINICAL INFORMATION: Chest pain COMPARISON: Chest x-ray most recent prior dated 10/25/2017 TECHNIQUE: Portable frontal view of the chest was obtained. FINDINGS: Cardiomediastinal silhouette is within normal limits. Mild prominence of interstitial markings may represent mild interstitial edema. Nodular opacity projecting upon the left lower lung likely representing prominent nipple shadow. No acute consolidation. No gross effusion.. IMPRESSION: Mild prominence of the interstitial markings may represent mild interstitial edema. No acute airspace disease. DICTATED BY: Beck Vanessa MD DATE/TIME DICTATED:12/25/17738 CHIEF COOK:KRISSY DATE/TIME TRANSCRIBED:12/25/17738 Other Results: EXAM TYPE: CAT - CTA CHEST-PULMONARY EMBOLISM EXAMINATION: CT ANGIOGRAM OF THE CHEST WITH AND WITHOUT CONTRAST (CT PULMONARY ANGIOGRAM FOR PE) CLINICAL INFORMATION: Assess for pulmonary embolus. Desaturating with positive troponin. COMPARISON: CT scan of the chest without contrast earlier 12/25/[address] scan of the chest 11/22/2017. TECHNIQUE: Prior to contrast administration, noncontrast localization images were obtained. Subsequently, multidetector volumetric imaging was performed from the thoracic inlet to below the diaphragms following the administration of 94 mL Optiray 320 intravenous contrast. No contrast reaction reported. Sagittal, coronal, and MIP oblique sagittal reformatted images were obtained on the CT workstation, uploaded to PACS, and reviewed. Total exam dose-length product 195.02 mGy-cm. FINDINGS: QUALITY OF STUDY/CONTRAST BOLUS: Satisfactory PULMONARY ARTERIES: There are no central or segmental pulmonary thromboemboli. THORACIC AORTA: The thoracic aorta has normal caliber. There is no evidence of dissection or aneurysm. There are atheromatous calcifications of the aorta. The root of the aorta measures 3.5 cm at the level of the main pulmonary artery. LUNG: There is no focal consolidation. The lungs are hyperinflated, with emphysematous changes bilaterally, most extensive in the upper left lung. There are atelectatic changes in the right middle lobe and there are subpleural bullae in the medial right middle lobe. A large bullous is seen in the left upper lobe anteromedially. There are a few scattered small pulmonary nodules which are unchanged. PLEURA: There are no pleural effusions. No pneumothoraces are seen. MEDIASTINUM: The thyroid gland appears normal. There are coronary artery calcifications. The heart is not enlarged. There is no pericardial effusion. The central airways are patent. There is no hilar or mediastinal lymphadenopathy. No evidence of septal bowing or right heart strain. CHEST WALL/AXILLA: There is paucity of the subcutaneous fat in the chest wall. There is no axillary lymphadenopathy comment there are no chest wall masses. OSSEOUS STRUCTURES: As presented described there is slight irregularity of the anterior aspect of the left seventh rib at the costochondral junction. The presented described irregularity of the lateral left ninth rib is likely due to motion artifact, as this finding is not demonstrated on the current study. There are no acute osseous findings in the thoracic spine. UPPER ABDOMEN: Unremarkable. There is no reflux of contrast into the hepatic veins to suggest elevated right heart pressures. IMPRESSION: 1. There are no pulmonary thrombi emboli. 2. There is evidence of COPD and there are atelectatic changes in the right middle lobe. 3. The previously described irregularity of the left lateral ninth rib is likely artifactual. Irregularity of the anterior left seventh rib may be consistent with a nondisplaced fracture. VTE: Negative. DICTATED BY: Bryant Redmond MD DATE/TIME DICTATED:12/25/171310 CHIEF COOK:KRISSY DATE/TIME TRANSCRIBED:12/25/171310 CONFIDENTIAL, DO NOT COPY WITHOUT APPROPRIATE AUTHORIZATION. <Electronically signed in Other Vendor System> SIGNED BY: Bryant Redmond MD 12/25/17 3040 Assessment/Plan Assessment/Plan A: 57 year old female current smoker (1 cigarette per day per patient report) with COPD on 2L home oxygen therapy and rheumatoid arthritis who developed left sided chest pain with deep inspiration found to have positive troponins in ED now started on a heparin gtt with incidental findings of a 7/9th rib fracture on CXR with CTa chest confirming artifact where said irregularities were seen. AVSS. Plan: No acute thoracic surgical intervention warranted. Monitor CBC over next 24 hours. No further imaging warranted. Consult Acknowledgment - Thank you for your consult request.
--- NOTE | 2017-12-25 16:13 | ULTRASOUND REPORT ---
EXAMINATION: US TRIPLEX OF LOWER EXTREMITIES, BILATERAL CLINICAL INFORMATION: Shortness of breath COMPARISON: None TECHNIQUE: Color-flow triplex imaging with spectral analysis and compression Doppler were performed on the lower extremities. FINDINGS: Respiratory variation, normal compression and augmented flow are noted throughout the lower extremities. The visualized common femoral vein, superficial femoral vein, profunda femoral vein, popliteal vein and midcalf peroneal and posterior tibial venous segments show no evidence of deep venous thrombosis. There is no Meraz's cyst. IMPRESSION: Normal triplex scan without evidence of deep venous thrombosis involving the lower extremities.
--- NOTE | 2017-12-25 16:23 | ULTRASOUND REPORT ---
EXAMINATION: COLOR-FLOW DUPLEX IMAGING OF THE BILATERAL LOWER EXTREMITY ARTERIAL SYSTEM. VELOCITY MEASUREMENTS THROUGHOUT THE FEMORAL ARTERIES. CLINICAL INFORMATION: 57-year-old female with coldness and numbness of the lower extremities. Evaluation for peripheral vascular disease requested. COMPARISON: Same day lower extremity DVT study RIGHT FEMORAL RUNOFF VELOCITIES: The right common femoral artery measures 104cm/s and is triphasic. The right profunda femoral artery measures 101cm/s and is triphasic. Right proximal superficial femoral artery measures 66 cm/s and is triphasic. Mid superficial femoral artery measures 90cm/s and is triphasic. Distal right superficial femoral artery measures 80cm/s and is triphasic. Right popliteal velocity measures 66cm/s and is triphasic. Anterior tibial velocity is 59cm/s and flow is triphasic. Dorsal pedis velocity is 16cm/s and flow is monophasic. Posterior tibial artery demonstrate color Doppler flow although velocity measurements were not obtained. LEFT FEMORAL RUNOFF VELOCITIES: The left common femoral artery measures 149cm/s and is triphasic. The left profunda femoral artery measures 79cm/s and is triphasic. Left proximal superficial femoral artery measures 87 cm/s and is triphasic. Mid superficial femoral artery measures 100cm/s and is triphasic. Distal left superficial femoral artery measures 84cm/s and is triphasic. Left popliteal velocity measures 78cm/s and is triphasic. Posterior tibial velocity is 38cm/s and flow is triphasic. Anterior tibial velocity is 40cm/s and flow is triphasic. Dorsal pedis velocity is 7cm/s and flow is monophasic. IMPRESSION: Normal peripheral arterial testing with velocity measurements. No focal elevated velocities to suggest hemodynamically significant stenosis. Normal triphasic waveforms throughout the majority of both lower extremities.
[2017-12-25 17:16] VITALS: BP 106/62
[2017-12-25 19:10] LABS: PTT 86 SEC (25-37)
--- NOTE | 2017-12-25 19:41 | Cons- Pulmonary ---
General Information and HPI Consulting Request Date of Consult: 12/25/17 Requested By: med team History of Present Illness: Mrs. Wade is a 57 yo lady with PMHx. of severe COPD on 2 L O2 at home, arthritis, chronic pain syndrome, currently every day smoker (Few cigarettes a day ) presented to emergency department with worsening shortness of breath. Patient noticed worsening of her breathing over the last 3 days, she is having nebulizer at home, she to the treatment every day with no improvement, she denies using albuterol inhalers, she is also using her Symbicort and [place] via daily with no improvement, patient has chronic cough and her baseline, but recently she noticed her cough is productive of yellowish secretion, she she also complained of left side chest pain more to the left back, which causes limitation on her breathing, she is not able to take deep breath due to the pain , this pain started only yesterday, it's severe, about 9/10, sharp in nature, mainly in the left side and back, aggravated by deep breath and movement, no relieving factor. She also complained of bilateral lower extremity numbness, and decreased sensation mainly on the left leg, she feels weak in her bilateral lower extremity, and also she is concerned about increased coldness of her bilateral lower extremity. Patient reported that over the last 2 days she checked her pulse ox at home which was low, the day before yesterday she checked her pulse ox with minimal exertion and she found it to be 75%, and today at home her pulse ox was in 80s which not improved with nebulizer treatment. Patient denies any fall, she don't know what caused the pain in the left side of her chest, she lives at home with her daughters and son. Patient denies any side effect of opioid medication such as drowsiness, or fall, she stated that she has been on this medication for years with no problem. upon further questioning she mentioned that the pain is mainly in the epigastric region radiating to the back, with no other associated symptoms. She denies alcohol use. She is [facility]. Patient denies any palpitation, dizziness, headache, vision changes, substernal chest pain, fever, chills, nausea, vomitng, decrease appetite, and there is no change in urinary or bowel habits. She is usually followed by Dr. Zamora for pulmonary issues in [place] Constitutional: Reports: no symptoms. EENTM: Reports: no symptoms. Cardiovascular: Reports: see HPI. Respiratory: Reports: cough, short of breath, sputum production, wheezing. GI: Reports: no symptoms. Genitourinary: Reports: no symptoms. Musculoskeletal: Reports: no symptoms. Skin: Reports: no symptoms. Neurological/Psychological: Reports: numbness, tingling (BLE), weakness. Hematologic/Endocrine: Reports: no symptoms. Immunologic/Allergic: Reports: no symptoms. All Other Systems: Reviewed and Negative Allergies/Medications Allergies: Coded Allergies: NO KNOWN ALLERGIES (06/03/12) Home Med List: Budesonide/Formoterol Fumarate (Symbicort 160-4.5 Mcg Inhaler) 160 MCG-4.5 MCG/ ACTUATION HFA.AER.AD 2 PUF INH BID COPD (Reported) Carisoprodol 350 MG TABLET 1 TAB PO 4XDAILY RA (Reported) Hydromorphone HCl 4 MG TABLET 1 TAB PO TID PAIN (Reported) Oxymorphone HCl (Oxymorphone HCl ER) 20 MG TAB.ER.12H 1 TAB PO BID PAIN ( Reported) Tiotropium [place] (Spiriva) 18 MCG CAP.W.DEV 1 CAP INH DAILY COPD . Review of Systems Review of Systems Constitutional: Reports: see HPI. Past History Travel History Traveled to [place] past 21 day No Medical History Neurological: NONE EENT: NONE Cardiovascular: NONE Respiratory: copd Gastrointestinal: NONE Hepatic: NONE Renal: NONE Musculoskeletal: RA Psychiatric: NONE Endocrine: NONE Blood Disorders: NONE Cancer(s): NONE ADMISSIONS DIRECTOR/Reproductive: NONE Surgical History Surgical History: csection, rotator cuff repair "years ago", ankle fracture repair Family History Relations & Conditions If Any: FATHER FH: diabetes mellitus FHx: COPD (chronic obstructive pulmonary disease) MOTHER FH: diabetes mellitus FH: heart disease Psychosocial History Services at Home: None Primary Language: Greek Smoking Status: Current Some Day Smoker ETOH Use: denies use Illicit Drug Use: denies illicit drug use Functional Ability ADLs Independent: dressing, eating, toileting, bathing. Ambulation: independent IADLs Independent: shopping, housework, finances, food prep, telephone, transportation , medication admin. Exam & Diagnostic Data Last 24 Hrs of Vital Signs/I&O Vital Signs Date Time Temp Pulse Resp B/P B/P Pulse O2 O2 Flow FiO2 Mean Ox Delivery Rate 12/26 1715 97.4 108 18 106/62 94 12/25 1714 Nasal 3.0L Cannula 12/25 1550 97.1 105 14 90/61 95 Nasal 1.0L Cannula 12/25 1351 98.5 106 18 86/60 95 Nasal 3.0L Cannula 12/25 1145 98.2 116 20 104/71 97 Nasal 3.0L Cannula 12/25 0929 97.7 106 20 96/68 99 Nasal 3.0L Cannula 12/25 0754 Nasal Cannula 12/25 0733 99 Nasal 3.0L Cannula 12/25 0727 97.7 97 20 90/60 98 Nasal 4.0L Cannula Intake & Output 12/25 1600 12/25 0800 12/25 0000 Intake Total Output Total Balance Patient 110 lb Weight Weight Estimated Measurement Method Last 48 Hrs of Labs/Norm: Laboratory Tests 12/25/17 1825: APTT 86 H 12/25/17 1335: Troponin I 1.18 *H 12/25/17 1330: Urine Opiates Screen 2990.00 H, Methadone Screen < 40, Barbiturate Screen < 60, Ur Phencyclidine Scrn < 6.00, Amphetamines Screen < 100, U Benzodiazepines Scrn > 800 H, Urine Cocaine Screen < 50, Urine Cannabis Screen 17.00, Urinalysis MOD H, Urine Color YEL, Urine Clarity HAZY H, Urine pH 6.0, Ur Specific [place] 1.020, Urine Protein 100 H, Urine Ketones 40 H, Urine Nitrite NEG, Urine Bilirubin NEG@ICTO, Urine Urobilinogen 0.2, Ur Leukocyte Esterase NEG, Ur Microscopic SEDIMENT EXAMINED, Urine WBC 15-25 H, Hyaline Casts FEW H, Granular Casts 15-25 H, Urine Mucus MOD H, Micro UA Comment , Urine Hemoglobin LARGE H, Urine Glucose NEG 12/25/17 0835: pH 7.38, pCO2 52 H, pO2 88, HCO3 30 H, ABG O2 Sat (Measured) 95.0 L, P-50 ( Temp Corrected) N, Carboxyhemoglobin 1.1 L, O2 Concentration % 3L, Temperature 97.7, O2 Delivery Method N/C, Phlebotomy Draw Site RIGHT RADIAL 12/25/17 0722: Anion Gap 11, Estimated GFR > 60, BUN/Creatinine Ratio 25.0, Glucose 123 H, Calcium 8.6, Magnesium 1.8, Total Bilirubin 0.6, AST 283 H, ALT 103 H, Alkaline Phosphatase 56, Troponin I 1.23 *H, Total Protein 6.2 L, Albumin 3.8, Globulin 2.4, Albumin/Globulin Ratio 1.6, Cholesterol 146, Lipase 11 L, APTT 34 , CBC w Diff NO MAN DIFF REQ, RBC 4.52, MCV 90.6, MCH 29.9, MCHC 33.0, RDW 15.7 H, MPV 6.5 L, Gran % 82.5 H, Lymphocytes % 7.6 L, Monocytes % 9.8 H, Eosinophils % 0, Basophils % 0.1, Absolute Granulocytes 6.4, Absolute Lymphocytes 0.6 L, Absolute Monocytes 0.8 H, Absolute Eosinophils 0, Absolute Basophils 0 Assessment/Plan Impression/Plan: General Appearance Alert, Oriented X3, Cooperative, Moderate Distress Skin No Rashes, No Breakdown, No Significant Lesion HEENT Atraumatic (THE), PERRLA, EOMI, Mucous Membr. moist/pink Neck Supple, No JVD, No thryomegaly Lymphatic Axillary nl, Cervical nl Cardiovascular Regular Rate, Normal S1, Normal S2, No Murmurs, TACHYCARDIA Lungs SILENT CHEST, with poor airentry with prolonged exp, with mild wheezing Abdomen Normal Bowel Sounds, Soft, No Tenderness, No Hepatospenomegaly Neurological Normal Speech, Normal Tone, Cranial Nerves 3-12 NL, DECREASED STRENGTH IN BILATERAL LOWER EXTREMITY 3/5 Extremities No Edema, RREDUCE PULSE IN BILATERAL LOWER EXTREMITY, COLDNESS Vascular REDUCE PULSE CTA IMPRESSION: 1. There are no pulmonary thrombi emboli. 2. There is evidence of COPD and there are atelectatic changes in the right middle lobe. 3. The previously described irregularity of the left lateral ninth rib is likely artifactual. Irregularity of the anterior left seventh rib may be consistent with a nondisplaced fracture. VTE: Negative. DICTATED BY: Bryant Redmond MD DATE/TIME DICTATED:12/25/171310 ABG REVIEWED ON 3 LITRES This is a lady with significant smoking history with significant COPD with chronic resp failure with recent codp exacerbations with ongoing smoking, previous history of pancreatitis, history suggestive rheumatoid arthritis ( i am not sure if she has RA) not on any disease modifying agents with on and off prednisone in the past not in the recent past, now comes in with * Acute copd exacerbation with chronic hypercarbic resp failure (well compensated) with ongoing smoking with cough and occ sputum production. Pt has had previous enterobacter bronchitis and has had recurrent hospitalization and recently has been on steroids and antibioticss * Elevated troponin sugg of myocardial necrosis, prob demand ischemia vs nstemi and cardio on board * Prob old rib fracture not clinically sig at this time * Significant cachexia with systemic signs very high BRIANA index which indicates very poor prognosis * Chronic pain syndrome / arthritis on narcotics * Previous history of pancreatitis with recent diarrhea and weight loss * Lower ext parasthesia both sides with no motor defecits * Ongoing significant smoking 1 than [id number] smoking history RECOMMENDATION * Steroid one mg per kg body wt daily, nebs atc and resume spiriva * Sputum culture and if she has further purulent sputum obtain cultures and start levoquin as she has had enterobacter before * Patient would need outpatient workup for osteoporosis etc. through her guide delegate * Continue to wean down oxygen and keep sat at 92 * Reduce narcotics if able * Pt would benefit from alf azithro 3/week to prevent copde in the future and can be started once her cardiac issues have improved * No intervention is needed for rib issues (pt does have severe osteoporosi) Prog is poor Discussed extensively with the patient and her . Consult Acknowledgment - Thank you for your consult request.
[2017-12-25 22:37] VITALS: BP 94/78
[2017-12-26 06:56] VITALS: BP 104/78
[2017-12-26 07:56] LABS: ABSOLUTE BASOPHIL COUNT 0 /CUMM (0.0-0.2); ABSOLUTE EOSINOPHIL COUNT 0 /CUMM (0.0-0.7); ABSOLUTE GRANULOCYTE CT 4.5 /CUMM (1.4-6.5); ABSOLUTE LYMPH COUNT 0.7 /CUMM (1.2-3.4); BASOPHIL % 0.2 % (0.0-2.0); EOSINOPHIL % 0 % (0-5); MEAN PLATELET VOLUME 7.3 FL (7.4-10.4)
--- NOTE | 2017-12-26 08:05 | PN- Housestaff ---
Uli Barrostomidangelo 12/26/17 0804: Subjective Follow-up For: Elevated troponins AE COPD Tele-Events Since Last Visit: NSR, without 13 run of nonsustained V. tach. Subjective: Ms. Wade is doing well. Continues to be on supplemental oxygen, but did not have any new concerns. Review of Systems Constitutional: Reports: see HPI. Objective Last 24 Hrs of Vital Signs/I&O Vital Signs Date Time Temp Pulse Resp B/P B/P Pulse O2 O2 Flow FiO2 Mean Ox Delivery Rate 12/26 0656 98.4 107 16 104/78 92 12/26 0000 Nasal 3.0L Cannula 12/25 2237 98.9 105 19 94/78 97 12/25 2129 Nasal 2.0L Cannula 12/25 1716 97.4 108 18 106/62 94 12/25 1714 Nasal 3.0L Cannula 12/25 1550 97.1 105 14 90/61 95 Nasal 1.0L Cannula 12/25 1351 98.5 106 18 86/60 95 Nasal 3.0L Cannula 12/25 1145 98.2 116 20 104/71 97 Nasal 3.0L Cannula 12/25 0929 97.7 106 20 96/68 99 Nasal 3.0L Cannula Intake & Output 12/26 1600 12/26 0800 12/26 0000 Intake Total 793.2 1385.8 Output Total 300 Balance 493.2 1385.8 Intake, IV 743.2 1185.8 Intake, Oral 50 200 Output, Urine 300 Patient 111 lb Weight Weight Bed scale Measurement Method Physical Exam General Appearance: No Acute Distress Other Physical Findings: General Exam: AAOx3, No acute distress, Skin: No rashes, no breakdown HEENT: PERRLA, EOMI Neck: Supple, No JVD No cervical lymphadenopathy CVS: Reg Rate, Normal S1,S2, No MGR Resp: Decreased air entry, no rhonchi or rales Abdomen: Soft, No tenderness, Normal Bowel Sounds Neuro: Normal Speech, Strength 4/5 b/l x 4 extremities, Sensation intact, CN III -XII NL, Reflexes 2+, tenderness in lumbar region. Extremities: No cyanosis, pedal edema Current Medications: Current Medications Sig/Renetta Start time Last Medication Dose Route Stop Time Status Admin Albuterol Sulfate 3 ML BID 12/25 2199 AC 12/25 INH 1900 Aspirin 81 MG DAILY 12/26 1000 AC PO Aspirin 0 .STK-MED ONE 12/25 1240 DC PO Aspirin 325 MG ONCE ONE 12/25 1215 DC 12/25 PO 12/25 1216 1241 Atorvastatin Calcium 40 MG 1700 12/25 1700 DC PO Atorvastatin Calcium 40 MG ONCE ONE 12/25 1300 DC PO 12/25 1301 Budesonide/ 2 PUF BID 12/25 1225 AC 12/25 Formoterol Fumarate INH 1315 Carisoprodol 350 MG Q6H 12/25 1230 AC 12/26 PO 0543 Heparin Sodium 0 .STK-MED ONE 12/25 1240 DC (Porcine) .ROUTE Heparin Sodium 5,000 UNIT ONCE ONE 12/25 1200 DC 12/25 (Porcine) IV 12/25 1201 1241 Heparin Sodium 25,000 UNIT Q24H 12/25 1200 AC 12/25 (Porcine) IV 1250 Sodium Chloride 500 ML Hydromorphone HCl 0 .STK-MED ONE 12/25 1241 DC PO Hydromorphone HCl 4 MG TID 12/25 1225 AC 12/25 PO 2101 Methylprednisolone 40 MG Q8 12/25 1400 AC 12/26 IV 12/29 0601 0543 Non-Formulary 0 SEE ADMIN CRITERIA 12/26 0800 CAN Medication ANY Oxycodone HCl 20 MG BID 12/25 1615 AC 12/25 PO 2101 Sodium Chloride 1,000 ML Q13H 12/25 1415 AC 12/26 IV 12/26 1614 0548 Sodium Chloride 1,000 ML BOLUS ONE 12/25 1415 DC 12/25 IV 12/25 1514 1413 Tiotropium [place] 1 PUF DAILY 12/25 1226 AC 12/25 INH 1315 Last 24 Hrs of Lab/Norm Results Last 24 Hrs of Labs/Mics: Laboratory Tests 12/26/17 0641: Anion Gap 8, Estimated GFR > 60, BUN/Creatinine Ratio 22.5, Total Bilirubin 0.4, Direct Bilirubin 0.3, AST 474 H, ALT 182 H, Alkaline Phosphatase 45, Total Protein 5.5 L, Albumin 3.0 L, APTT 53 H, CBC w Diff NO MAN DIFF REQ, RBC 3.96 L, MCV 90.6, MCH 30.8, MCHC 34.0, RDW 15.8 H, MPV 7.3 L, Gran % 78.1 H, Lymphocytes % 12.0 L, Monocytes % 9.7 H, Eosinophils % 0, Basophils % 0.2, Absolute Granulocytes 4.5, Absolute Lymphocytes 0.7 L, Absolute Monocytes 0.6, Absolute Eosinophils 0, Absolute Basophils 0 12/25/17 1825: APTT 86 H 12/25/17 1335: Troponin I 1.18 *H 12/25/17 1330: Urine Opiates Screen 2990.00 H, Methadone Screen < 40, Barbiturate Screen < 60, Ur Phencyclidine Scrn < 6.00, Amphetamines Screen < 100, U Benzodiazepines Scrn > 800 H, Urine Cocaine Screen < 50, Urine Cannabis Screen 17.00, Urinalysis MOD H, Urine Color YEL, Urine Clarity HAZY H, Urine pH 6.0, Ur Specific [place] 1.020, Urine Protein 100 H, Urine Ketones 40 H, Urine Nitrite NEG, Urine Bilirubin NEG@ICTO, Urine Urobilinogen 0.2, Ur Leukocyte Esterase NEG, Ur Microscopic SEDIMENT EXAMINED, Urine WBC 15-25 H, Hyaline Casts FEW H, Granular Casts 15-25 H, Urine Mucus MOD H, Micro UA Comment , Urine Hemoglobin LARGE H, Urine Glucose NEG Microbiology 12/25 1453 LOWER RESP: Respiratory Culture - COLB 12/25 1453 LOWER RESP: Gram Stain - COLB 12/25 1427 URINE ROUT: Urine Culture - COLB Assessment/Plan Assessment: Ms Wade is a 57-year-old woman with a past medical history of severe COPD on 2 L home oxygen, rheumatoid arthritis, chronic pain syndrome, current smoker who came to the ER with a chief concern of worsening dyspnea likely secondary from acute exacerbation of COPD. At the time of admission-temperature 97.7, pulse rate 97, respiration 20, blood pressure 90/60, pulse ox 98% on 4 L oxygen. Pertinent lab findings: WBC 7.7 (82.5 cranial cytosis),, hemoglobin 13.5, platelets 224, sodium 139, potassium 4.1, bicarbonate 34 (likely compensation for respiratory acidosis), glucose 123, renal function-BUN 15, creatinine 0.6, abnormal liver chemistries-AST 283-->474; ALT 103-->182, total bilirubin 0.4, direct bilirubin 0.3. Alkaline phosphatase 45. Troponin I-1.23-->1.18. Lipase 11. ABG pH 7.38, PCO2 52, PO2 88. Urinalysis-urine protein about 100, urine ketones 40. Toxicology-urine opiates 2990, urine benzodiazepines greater than 800. Negative for methadone, amphetamines and cocaine. Radiology: Foot x-ray: 1. There are no acute fractures or subluxations. 2. There are degenerative changes at the first MP joint. Chest x-ray: Mild prominence of the interstitial markings may represent mild interstitial edema. No acute airspace disease. Chest CT without IV contrast- 1. There is irregularity of the costochondral junction of the left seventh rib and of the lateral left ninth rib, consistent with acute fractures. There are no pleural effusions or pneumothoraces. There is a thoracolumbar sigmoid scoliosis as described above. 2. The study redemonstrates emphysematous disease of the lungs bilaterally. No focal consolidation is demonstrated. Lumbosacral spine x-ray : 1. Mild to moderate degenerative disc disease in the lower lumbar spine. 2. Mild facet arthropathy in the mid and lower lumbar spine. 3. S-shaped thoracolumbar scoliosis. Chest CTA- 1. There are no pulmonary thrombi emboli. 2. There is evidence of COPD and there are atelectatic changes in the right middle lobe. 3. The previously described irregularity of the left lateral ninth rib is likely artifactual. Irregularity of the anterior left seventh rib may be consistent with a nondisplaced fracture. VTE: Negative. Lower extremity venous Dopplers- Normal triplex scan without evidence of deep venous thrombosis involving the lower extremities. Bilateral lower extremity arterial Dopplers- Normal peripheral arterial testing with velocity measurements. No focal elevated velocities to suggest hemodynamically significant stenosis. Normal triphasic waveforms throughout the majority of both lower extremities. Problem list: #1 acute exacerbation of COPD #2 acute on chronic hypercarbic respiratory failure #3 tobacco use #4 elevated troponin-type II ND #5 chronic pain syndrome on chronic use of opiates #6 History of pancreatitis #7 elevated liver chemistries #8 neuropathy Etiology of her current clinical condition, is likely multifactorial with severe COPD contributing into her clinical status, while chronic opiate use, smoking likely causing worsening. In regards to elevated troponin, which could likely be due to type II ND. She has elevated liver enzymes, with unclear etiology of which needs to be followed closely. Plan: #1 continue the patient on IV steroids, taper to p.o. steroids 50 mg prednisone daily. #2 To start Levaquin, if the patient has increasing sputum production; since the patient had growth of Enterobacter in lower respiratory cultures in the past. #3 follow lower respiratory cultures #4 continue opiates for now OxyContin, Dilaudid and Soma. #5 consider decreasing the dose of opiates upon discharge, since these could be contributing to her clinical condition. #6 check cortisol a.m. to rule out any partial adrenal insufficiency secondary to opiate use. If cortisol is low, would do an ACTH stim test. #7 Trend liver chemistries. If the patient has any fever, hypotension, would consider cholangitis. #8 Discontinue IV heparin. #9 continue daily aspirin and statin. Housekeeping: #1 DVT prophylaxis-subcutaneous heparin. Problem List: 1. COPD (chronic obstructive pulmonary disease) 2. Elevated troponin Pain Ratin Pain Location: Tylenol Soma OxyContin Pain Goal: Pain 4 or less Pain Plan: back Tomorrow's Labs & Rationales: cbc bep AnuragRalph montesfadi 12/26/17 1122: Attending MD Review Statement Attending Statement Attending MD Statement: examined this patient, discuss w/resident/PA/MEDICAL STAFFING COORDINATOR, agreed w/resident/PA/MEDICAL STAFFING COORDINATOR, discussed with family, reviewed EMR data (avail), discussed with nursing, discussed with case mgmt, reviewed images, amended to note Attending Assessment/Plan: 57 o/f with pmh of chronic pain syndrome/ arthritis/COPD on home oxygen comes with shortness of breath. Patient underwent CTA chest no acute PE. Patient with elevated cardiac enzymes likely type 2 NSTEMI. cardiology and pulmomnary consulted. She is started on iv heparin, iv antibitoics, iv steroids, oxygen supplementation. USG arterial with positive blood flow in both extrmeities. PT consult for general physical deconditioning. Pysch consult.
[2017-12-26 08:19] LABS: PTT 53 SEC (25-37)
[2017-12-26 08:20] LABS: ABSOLUTE MONOCYTE COUNT 0.6 /CUMM (0.10-0.60); GRANULOCYTE % 78.1 % (42.2-75.2); MEAN CORPUSCULAR HGB 30.8 PG (27.0-31.0); MEAN CORPUSCULAR VOLUME 90.6 FL (81.0-99.0); PLATELET COUNT 171 /CUMM (130-400); RBC DISTRIBUTION WIDTH 15.8 % (11.5-14.5); RED BLOOD CELL CT 3.96 /CUMM (4.20-5.40); WHITE BLOOD CELL COUNT 5.8 /CUMM (4.8-10.8)
[2017-12-26 08:26] LABS: HEMATOCRIT 35.9 % (37-47)
--- NOTE | 2017-12-26 10:05 | PN- Pulmonary ---
Subjective HPI/Critical Care Issues: Sleeping and seen early this am Objective Current Medications: Current Medications Sig/Renetta Start time Last Medication Dose Route Stop Time Status Admin Albuterol Sulfate 3 ML BID 12/25 2200 AC 12/25 INH 1900 Aspirin 81 MG DAILY 12/26 1000 AC PO Aspirin 0 .STK-MED ONE 12/25 1240 DC PO Aspirin 325 MG ONCE ONE 12/25 1215 DC 04 PO 12/25 1216 1241 Atorvastatin Calcium 40 MG 1700 12/25 1700 DC PO Atorvastatin Calcium 40 MG ONCE ONE 12/25 1300 DC PO 12/25 1301 Budesonide/ 2 PUF BID 12/25 1225 AC 12/25 Formoterol Fumarate INH 1315 Carisoprodol 350 MG Q6H 12/25 1230 AC 12/26 PO 0543 Heparin Sodium 2,000 UNIT ONCE ONE 12/26 0830 DC (Porcine) IV 12/26 0831 Heparin Sodium 0 .STK-MED ONE 12/25 1240 DC (Porcine) .ROUTE Heparin Sodium 5,000 UNIT ONCE ONE 12/25 1200 DC 12/25 (Porcine) IV 12/25 1201 1241 Heparin Sodium 25,000 UNIT Q24H 12/25 1200 AC 12/25 (Porcine) IV 1250 Sodium Chloride 500 ML Hydromorphone HCl 0 .STK-MED ONE 12/25 1241 DC PO Hydromorphone HCl 4 MG TID 12/25 1225 AC 12/25 PO 2101 Methylprednisolone 40 MG Q8 12/25 1400 AC 12/26 IV 12/29 0601 0543 Non-Formulary 0 SEE ADMIN CRITERIA 12/26 08 CAN Medication ANY Oxycodone HCl 20 MG BID 12/25 1615 AC 12/25 PO 2101 Patient Medication 1 ED ONE ONE 12/26 0830 DC Teaching ED 12/26 0831 Sodium Chloride 1,000 ML Q13H 12/25 1415 AC 12/26 IV 12/26 1614 0548 Sodium Chloride 1,000 ML BOLUS ONE 12/25 1415 DC 12/25 IV 12/25 1514 1413 Tiotropium [place] 1 PUF DAILY 12/25 1226 AC 12/25 INH 1315 Vital Signs & I&O Last 24 Hrs of Vitals and I&O: Vital Signs Date Time Temp Pulse Resp B/P B/P Pulse O2 O2 Flow FiO2 Mean Ox Delivery Rate 12/26 0800 Nasal 3.0L Cannula 12/26 0656 98.4 107 16 104/78 92 12/26 0000 Nasal 3.0L Cannula 12/25 2237 98.9 105 19 94/78 97 12/25 2129 Nasal 2.0L Cannula 12/25 1716 97.4 108 18 106/62 94 12/25 1714 Nasal 3.0L Cannula 12/25 1550 97.1 105 14 90/61 95 Nasal 1.0L Cannula 12/25 1351 98.5 106 18 86/60 95 Nasal 3.0L Cannula 12/25 1145 98.2 116 20 104/71 97 Nasal 3.0L Cannula Intake & Output 12/26 1600 12/26 0812/26 0000 Intake Total 793.2 1385.8 Output Total 300 Balance 493.2 1385.8 Intake, IV 743.2 1185.8 Intake, Oral 50 200 Output, Urine 300 Patient 111 lb Weight Weight Bed scale Measurement Method Laboratory Tests 12/26 12/25 12/25 0641 1825 1335 Chemistry Sodium (137 - 145 mmol/L) 141 Potassium (3.5 - 5.1 mmol/L) 4.2 Chloride (98 - 107 mmol/L) 100 Carbon Dioxide (22 - 30 mmol/L) 33 H Anion Gap (5 - 16) 8 BUN (7 - 17 mg/dL) 9 Creatinine (0.5 - 1.0 mg/dL) 0.4 L Estimated GFR (>60 ml/min) > 60 BUN/Creatinine Ratio (7 - 25 %) 22.5 Total Bilirubin (0.2 - 1.3 mg/dL) 0.4 Direct Bilirubin (< 0.4 mg/dL) 0.3 AST (14 - 36 U/L) 474 H ALT (9 - 52 U/L) 182 H Alkaline Phosphatase (<127 U/L) 45 Troponin I (< 0.11 ng/ml) 1.18 *H Total Protein (6.3 - 8.2 g/dL) 5.5 L Albumin (3.5 - 5.0 g/dL) 3.0 L Coagulation APTT (25 - 37 SEC) 53 H 86 H Hematology CBC w Diff NO MAN DIFF REQ WBC (4.8 - 10.8 /CUMM) 5.8 RBC (4.20 - 5.40 /CUMM) 3.96 L Hgb (12.0 - 16.0 G/DL) 12.2 Hct (37 - 47 %) 35.9 L MCV (81.0 - 99.0 FL) 90.6 MCH (27.0 - 31.0 PG) 30.8 MCHC (33.0 - 37.0 G/DL) 34.0 RDW (11.5 - 14.5 %) 15.8 H Plt Count (130 - 400 /CUMM) 171 MPV (7.4 - 10.4 FL) 7.3 L Gran % (42.2 - 75.2 %) 78.1 H Lymphocytes % (20.5 - 51.1 %) 12.0 L Monocytes % (1.7 - 9.3 %) 9.7 H Eosinophils % (0 - 5 %) 0 Basophils % (0.0 - 2.0 %) 0.2 Absolute Granulocytes (1.4 - 6.5 /CUMM) 4.5 Absolute Lymphocytes (1.2 - 3.4 /CUMM) 0.7 L Absolute Monocytes (0.10 - 0.60 /CUMM) 0.6 Absolute Eosinophils (0.0 - 0.7 /CUMM) 0 Absolute Basophils (0.0 - 0.2 /CUMM) 0 12/25 12/25 1330 0835 Blood Gas pH (7.35 - 7.45 PH) 7.38 pCO2 (35 - 45 TORR) 52 H pO2 (80 - 100 TORR) 88 HCO3 (21 - 28 MEQ/L) 30 H ABG O2 Sat (Measured) (>96.0 %) 95.0 L P-50 (Temp Corrected) N Carboxyhemoglobin (1.5 - 5.0 %) 1.1 L O2 Concentration % 3L Temperature (97.0 - 100.0 FARH) 97.7 O2 Delivery Method N/C Miscellaneous Phlebotomy Draw Site RIGHT RADIAL Toxicology Urine Opiates Screen (>2000 NG/ML) 2990.00 H Methadone Screen (>300 NG/ML) < 40 Barbiturate Screen (>200 NG/ML) < 60 Ur Phencyclidine Scrn (>25 NG/ML) < 6.00 Amphetamines Screen (>1000 NG/ML) < 100 U Benzodiazepines Scrn (>200 NG/ML) > 800 H Urine Cocaine Screen (>300 NG/ML) < 50 Urine Cannabis Screen (>50 NG/ML) 17.00 Urines Urinalysis MOD H Urine Color (YEL,AMB,STR) YEL Urine Clarity (CLEAR) HAZY H Urine pH (5.0 - 8.0) 6.0 Ur Specific [place] (1.001 - 1.035) 1.020 Urine Protein (NEG,<30 MG/DL) 100 H Urine Ketones (NEG) 40 H Urine Nitrite (NEG) NEG Urine Bilirubin (NEG) NEG@ICTO Urine Urobilinogen (0.1 - 1.0 EU/dl) 0.2 Ur Leukocyte Esterase (NEG) NEG Ur Microscopic SEDIMENT EXAMINED Urine WBC (0 - 2 /HPF) 15-25 H Hyaline Casts (0/LPF) FEW H Granular Casts (NONE /LPF) 15-25 H Urine Mucus (FEW,NONE) MOD H Micro UA Comment Urine Hemoglobin (NEG) LARGE H Urine Glucose (N MG/DL) NEG 12/25 0722 Chemistry Sodium (137 - 145 mmol/L) 139 Potassium (3.5 - 5.1 mmol/L) 4.1 Chloride (98 - 107 mmol/L) 94 L Carbon Dioxide (22 - 30 mmol/L) 34 H Anion Gap (5 - 16) 11 BUN (7 - 17 mg/dL) 15 Creatinine (0.5 - 1.0 mg/dL) 0.6 Estimated GFR (>60 ml/min) > 60 BUN/Creatinine Ratio (7 - 25 %) 25.0 Glucose (65 - 99 mg/dL) 123 H Calcium (8.4 - 10.2 mg/dL) 8.6 Magnesium (1.6 - 2.3 mg/dL) 1.8 Total Bilirubin (0.2 - 1.3 mg/dL) 0.6 AST (14 - 36 U/L) 283 H ALT (9 - 52 U/L) 103 H Alkaline Phosphatase (<127 U/L) 56 Troponin I (< 0.11 ng/ml) 1.23 *H Total Protein (6.3 - 8.2 g/dL) 6.2 L Albumin (3.5 - 5.0 g/dL) 3.8 Globulin (1.9 - 4.2 gm/dL) 2.4 Albumin/Globulin Ratio (1.1 - 2.2 %) 1.6 Cholesterol (<200 MG/DL) 146 Lipase (23 - 300 U/L) 11 L Coagulation APTT (25 - 37 SEC) 34 Hematology CBC w Diff NO MAN DIFF REQ WBC (4.8 - 10.8 /CUMM) 7.7 RBC (4.20 - 5.40 /CUMM) 4.52 Hgb (12.0 - 16.0 G/DL) 13.5 Hct (37 - 47 %) 40.9 MCV (81.0 - 99.0 FL) 90.6 MCH (27.0 - 31.0 PG) 29.9 MCHC (33.0 - 37.0 G/DL) 33.0 RDW (11.5 - 14.5 %) 15.7 H Plt Count (130 - 400 /CUMM) 224 MPV (7.4 - 10.4 FL) 6.5 L Gran % (42.2 - 75.2 %) 82.5 H Lymphocytes % (20.5 - 51.1 %) 7.6 L Monocytes % (1.7 - 9.3 %) 9.8 H Eosinophils % (0 - 5 %) 0 Basophils % (0.0 - 2.0 %) 0.1 Absolute Granulocytes (1.4 - 6.5 /CUMM) 6.4 Absolute Lymphocytes (1.2 - 3.4 /CUMM) 0.6 L Absolute Monocytes (0.10 - 0.60 /CUMM) 0.8 H Absolute Eosinophils (0.0 - 0.7 /CUMM) 0 Absolute Basophils (0.0 - 0.2 /CUMM) 0 Microbiology Date/Time Procedure - Status Source Growth 12/25 145 Respiratory Culture - COLB LOWER RESP 12/25 145 Gram Stain - COLB LOWER RESP 12/25 1427 Urine Culture - COLB URINE ROUT Impression/Plan Impression/Plan Impression/Plan: General Appearance Alert, Oriented X3, Cooperative, Moderate Distress Skin No Rashes, No Breakdown, No Significant Lesion HEENT Atraumatic (THE), PERRLA, EOMI, Mucous Membr. moist/pink Neck Supple, No JVD, No thryomegaly Lymphatic Axillary nl, Cervical nl Cardiovascular Regular Rate, Normal S1, Normal S2, No Murmurs, TACHYCARDIA Lungs SILENT CHEST, with poor airentry with prolonged exp, with mild wheezing Abdomen Normal Bowel Sounds, Soft, No Tenderness, No Hepatospenomegaly Neurological Normal Speech, Normal Tone, Cranial Nerves 3-12 NL, DECREASED STRENGTH IN BILATERAL LOWER EXTREMITY 3/5 Extremities No Edema, RREDUCE PULSE IN BILATERAL LOWER EXTREMITY, COLDNESS Vascular REDUCE PULSE CTA IMPRESSION: 1. There are no pulmonary thrombi emboli. 2. There is evidence of COPD and there are atelectatic changes in the right middle lobe. 3. The previously described irregularity of the left lateral ninth rib is likely artifactual. Irregularity of the anterior left seventh rib may be consistent with a nondisplaced fracture. VTE: Negative. DICTATED BY: Bryant Redmond MD DATE/TIME DICTATED:12/25/171310 ABG REVIEWED ON 3 LITRES This is a lady with significant smoking history with significant COPD with chronic resp failure with recent codp exacerbations with ongoing smoking, previous history of pancreatitis, history suggestive rheumatoid arthritis ( i am not sure if she has RA) not on any disease modifying agents with on and off prednisone in the past not in the recent past, now comes in with * Acute copd exacerbation with chronic hypercarbic resp failure (well compensated) with ongoing smoking with cough and occ sputum production. Pt has had previous enterobacter bronchitis and has had recurrent hospitalization and recently has been on steroids and antibioticss * Elevated troponin sugg of myocardial necrosis, prob demand ischemia vs nstemi and cardio on board * Prob old rib fracture not clinically sig at this time * Significant cachexia with systemic signs very high BRIANA index which indicates very poor prognosis * Chronic pain syndrome / arthritis on narcotics * Previous history of pancreatitis with recent diarrhea and weight loss * Altered LFTS * Lower ext parasthesia both sides with no motor defecits * Ongoing significant smoking 1 than [id number] smoking history RECOMMENDATION * Steroid one mg per kg body wt daily, nebs atc and resume spiriva * Sputum culture and if she has further purulent sputum obtain cultures and start levoquin as she has had enterobacter before * Patient would need outpatient workup for osteoporosis etc. 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
--- NOTE | 2017-12-26 11:23 | PN- Cardiology ---
Subjective Subjective: Patient still complains of shortness of breath but states her breathing has improved. Review of Systems: Eyes no blurred or double vision Ears no deafness or ringing Nose and throat no recurrent sinusitis Lungs per history of present illness Heart per history of present illness Abdomen no nausea vomiting Musculoskeletal occasional muscle and joint pains Psych no anxiety or depression Neuro without recurrent headache or seizures Endocrine no heat or cold intolerance Objective Vital Signs and I&Os Vital Signs Date Time Temp Pulse Resp B/P B/P Pulse O2 O2 Flow FiO2 Mean Ox Delivery Rate 12/27 799 Nasal 3.0L Cannula 12/26 0656 98.4 107 16 104/78 92 12/26 0000 Nasal 3.0L Cannula 12/25 2237 98.9 105 19 94/78 97 12/25 2129 Nasal 2.0L Cannula 12/25 1716 97.4 108 18 106/62 94 12/25 1714 Nasal 3.0L Cannula 12/25 1550 97.1 105 14 90/61 95 Nasal 1.0L Cannula 12/25 1351 98.5 106 18 86/60 95 Nasal 3.0L Cannula 12/25 1145 98.2 116 20 104/71 97 Nasal 3.0L Cannula Intake & Output 12/26 1600 12/26 0800 12/26 0000 12/25 1600 12/25 0800 12/25 0000 Intake Total 793.2 1385.8 Output Total 300 Balance 493.2 1385.8 Intake, IV 743.2 1185.8 Intake, Oral 50 200 Output, Urine 300 Patient 111 lb 110 lb Weight Weight Bed scale Estimated Measurement Method Physical Exam: Patient is a well-developed well-nourished female appearing in no acute distress HEENT is unremarkable Neck is supple there is no JVD Lungs decreased air entry bilaterally Heart regular rhythm S1 and S2 are normal no murmurs gallops or rubs Abdomen bowel sounds positive Extremities without edema Current Medications: Current Medications Sig/Renetta Start time Last Medication Dose Route Stop Time Status Admin Albuterol Sulfate 3 ML BID 12/25 2200 AC 12/25 INH 1900 Aspirin 81 MG DAILY 12/26 1000 AC 12/26 PO 1050 Aspirin 0 .STK-MED ONE 12/25 1240 DC PO Aspirin 325 MG ONCE ONE 12/25 1215 DC 12/25 PO 12/25 1216 1241 Atorvastatin Calcium 40 MG 1700 12/25 1700 DC PO Atorvastatin Calcium 40 MG ONCE ONE 12/25 1300 DC PO 12/25 1301 Budesonide/ 2 PUF BID 12/25 1225 AC 12/26 Formoterol Fumarate INH 1051 Carisoprodol 350 MG Q6H 12/25 1230 AC 12/26 PO 0543 Heparin Sodium 2,000 UNIT ONCE ONE 12/26 0830 DC 12/26 (Porcine) IV 12/26 0831 0830 Heparin Sodium 0 .STK-MED ONE 12/25 1240 DC (Porcine) .ROUTE Heparin Sodium 5,000 UNIT ONCE ONE 12/25 1200 DC 12/25 (Porcine) IV 12/25 1201 1241 Heparin Sodium 25,000 UNIT Q24H 12/25 1200 AC 12/25 (Porcine) IV 1250 Sodium Chloride 500 ML Hydromorphone HCl 0 .STK-MED ONE 12/25 1241 DC PO Hydromorphone HCl 4 MG TID 12/25 1225 AC 12/26 PO 1050 Methylprednisolone 40 MG Q12 12/26 2200 AC IV Methylprednisolone 40 MG Q8 12/25 1400 DC 12/26 IV 12/29 0601 0543 Non-Formulary 0 SEE ADMIN CRITERIA 12/26 0800 CAN Medication ANY Oxycodone HCl 20 MG BID 12/25 1615 AC 12/26 PO 1050 Patient Medication 1 ED ONE ONE 12/26 0830 DC Teaching ED 12/26 0831 Sodium Chloride 1,000 ML Q13H 12/25 1415 AC 12/26 IV 12/26 1614 0548 Sodium Chloride 1,000 ML BOLUS ONE 12/25 1415 DC 12/25 IV 12/25 1514 1413 Tiotropium [place] 1 PUF DAILY 12/25 1226 AC 12/26 INH 1057 Results Last 48 Hrs of Labs/Mics: Laboratory Tests 12/26/17 0641: Anion Gap 8, Estimated GFR > 60, BUN/Creatinine Ratio 22.5, Total Bilirubin 0.4, Direct Bilirubin 0.3, AST 474 H, ALT 182 H, Alkaline Phosphatase 45, Total Protein 5.5 L, Albumin 3.0 L, APTT 53 H, CBC w Diff NO MAN DIFF REQ, RBC 3.96 L, MCV 90.6, MCH 30.8, MCHC 34.0, RDW 15.8 H, MPV 7.3 L, Gran % 78.1 H, Lymphocytes % 12.0 L, Monocytes % 9.7 H, Eosinophils % 0, Basophils % 0.2, Absolute Granulocytes 4.5, Absolute Lymphocytes 0.7 L, Absolute Monocytes 0.6, Absolute Eosinophils 0, Absolute Basophils 0 12/25/17 1825: APTT 86 H 12/25/17 1335: Troponin I 1.18 *H 12/25/17 1330: Urine Opiates Screen 2990.00 H, Methadone Screen < 40, Barbiturate Screen < 60, Ur Phencyclidine Scrn < 6.00, Amphetamines Screen < 100, U Benzodiazepines Scrn > 800 H, Urine Cocaine Screen < 50, Urine Cannabis Screen 17.00, Urinalysis MOD H, Urine Color YEL, Urine Clarity HAZY H, Urine pH 6.0, Ur Specific [place] 1.020, Urine Protein 100 H, Urine Ketones 40 H, Urine Nitrite NEG, Urine Bilirubin NEG@ICTO, Urine Urobilinogen 0.2, Ur Leukocyte Esterase NEG, Ur Microscopic SEDIMENT EXAMINED, Urine WBC 15-25 H, Hyaline Casts FEW H, Granular Casts 15-25 H, Urine Mucus MOD H, Micro UA Comment , Urine Hemoglobin LARGE H, Urine Glucose NEG 12/25/17 0835: pH 7.38, pCO2 52 H, pO2 88, HCO3 30 H, ABG O2 Sat (Measured) 95.0 L, P-50 ( Temp Corrected) N, Carboxyhemoglobin 1.1 L, O2 Concentration % 3L, Temperature 97.7, O2 Delivery Method N/C, Phlebotomy Draw Site RIGHT RADIAL 12/25/17 0722: Anion Gap 11, Estimated GFR > 60, BUN/Creatinine Ratio 25.0, Glucose 123 H, Calcium 8.6, Magnesium 1.8, Total Bilirubin 0.6, AST 283 H, ALT 103 H, Alkaline Phosphatase 56, Troponin I 1.23 *H, Total Protein 6.2 L, Albumin 3.8, Globulin 2.4, Albumin/Globulin Ratio 1.6, Cholesterol 146, Lipase 11 L, APTT 34 , CBC w Diff NO MAN DIFF REQ, RBC 4.52, MCV 90.6, MCH 29.9, MCHC 33.0, RDW 15.7 H, MPV 6.5 L, Gran % 82.5 H, Lymphocytes % 7.6 L, Monocytes % 9.8 H, Eosinophils % 0, Basophils % 0.1, Absolute Granulocytes 6.4, Absolute Lymphocytes 0.6 L, Absolute Monocytes 0.8 H, Absolute Eosinophils 0, Absolute Basophils 0 Telemetry personally reviewed sinus rhythm 13 beat run of nonsustained ventricular tachycardia Recent Imaging Studies: CTA IMPRESSION: 1. There are no pulmonary thrombi emboli. 2. There is evidence of COPD and there are atelectatic changes in the right middle lobe. 3. The previously described irregularity of the left lateral ninth rib is likely artifactual. Irregularity of the anterior left seventh rib may be consistent with a nondisplaced fracture. Assessment/Plan Assessment/Plan 1. Chest pain most likely secondary to rib fracture 2. Elevated troponin due type II [place] with demand ischemia secondary COPD 3. Sinus tachycardia 4. COPD 5. Nondisplaced left seventh rib fracture 6. Nonsustained ventricular tachycardia most likely secondary to a combination of COPD and demand ischemia Recommendations 1. Echocardiogram is pending 2. Would consider adding beta yue if no contraindication from the pulmonary standpoint 3. Continue to monitor on telemetry Continue telemetry? Yes
--- NOTE | 2017-12-26 12:50 | ULTRASOUND REPORT ---
EXAMINATION: US ABDOMEN LIMITED CLINICAL INFORMATION: Elevated transaminases. Epigastric pain. Presumptive diagnosis of cholangitis. Status post cholecystectomy. 6 mm hypodensity seen on CT scan of the chest in the right kidney. COMPARISON: CTA of the chest dated 12/25/2017. CT scan of the chest dated 12/25/2017 and 11/22/2017. TECHNIQUE: Real-time imaging of the right upper quadrant abdominal viscera. FINDINGS: PANCREAS: The pancreatic body and portions of the head and tail are visualized and appear unremarkable. Remainder of the pancreas is obscured by overlying bowel gas. LIVER: Normal. The liver demonstrates normal size, contour and echogenicity. No focal lesion or intrahepatic biliary duct dilatation. GALLBLADDER: The patient is status post cholecystectomy. No focal fluid collection seen in the gallbladder fossa. COMMON BILE DUCT: Mildly distended in caliber measuring 0.8 cm in diameter, consistent with patient's postcholecystectomy state. RIGHT KIDNEY: There is a simple cortical cyst in the mid right kidney, measuring 0.7 x 0.6 x 0.6 cm, likely corresponding to the CT scan findings. A second simple appearing cortical cyst is seen in the mid to lower pole of the right kidney, measuring 0.4 x 0.4 x 0.6 cm. No hydronephrosis. No renal calculi or focal parenchymal lesions. The kidney measures 10.9 cm in maximum dimension. FREE FLUID: None. IMPRESSION: 1. Mild distention of the common bile duct is seen to 0.8 cm, most consistent with patient's postcholecystectomy state. No intrahepatic ductal dilatation is seen. 2. The patient is status post cholecystectomy. No evidence of abnormal fluid collection in the gallbladder fossa. 3. Benign simple cysts in the right kidney, one of which corresponds to the previously demonstrated finding on CT scan of the chest. 4. Incomplete view of the pancreatic head and tail. Visualized portions of pancreas unremarkable.
--- NOTE | 2017-12-26 12:52 | RADIOLOGY REPORT ---
EXAMINATION: XR LUMBOSACRAL SPINE CLINICAL INFORMATION: Tenderness in the lumbar area. Rule out any fractures. Currently on multiple pain medications. Weakness in bilateral lower extremities. COMPARISON: None TECHNIQUE: 4 views of the lumbosacral spine were obtained. FINDINGS: There is an S-shaped thoracolumbar scoliosis. No acute fracture or dislocation is seen. Moderate degenerative disc disease is seen at the lumbosacral junction with disc space narrowing and vacuum disc phenomenon and vertebral endplate sclerosis and spurring. There is associated minimal grade 1 retrolisthesis of L5 relative to S1. Mild degenerative disc disease is seen at L4-L5. Remainder of the disc space height is well-maintained at all levels. Mild facet arthropathy seen in the mid and lower lumbar spine. Sacroiliac joints, pubic symphysis and visualized portions of the hip joints are unremarkable. Several phleboliths are seen in the pelvis. Right upper quadrant ronny in place from prior cholecystectomy. IMPRESSION: 1. Mild to moderate degenerative disc disease in the lower lumbar spine. 2. Mild facet arthropathy in the mid and lower lumbar spine. 3. S-shaped thoracolumbar scoliosis.
[2017-12-26 14:51] VITALS: BP 94/54
[2017-12-26 15:46] LABS: PTT 64 SEC (25-37)
--- NOTE | 2017-12-26 18:38 | Discharge Summary ---
Visit Information Visit Dates Admission Date: 12/25/17 Discharge Date: 12/27/2017 Hospital Course Course Attending Physician: Jose D Osborn MD Primary Care Physician: Ld GRAY,[place] Hospital Course: Ms Waed is a 57-year-old woman with a past medical history of severe COPD on 2 L home oxygen, rheumatoid arthritis, chronic pain syndrome, current smoker who came to the ER with a chief concern of worsening dyspnea likely secondary from acute exacerbation of COPD. At the time of admission-temperature 97.7, pulse rate 97, respiration 20, blood pressure 90/60, pulse ox 98% on 4 L oxygen. Pertinent lab findings: WBC 7.7 (82.5 granulocytosis), hemoglobin 13.5, platelets 224, sodium 139, potassium 4.1, bicarbonate 34 (likely compensation for respiratory acidosis), glucose 123, renal function-BUN 15, creatinine 0.6, Abnormal liver chemistries-AST 283-->474; ALT 103-->182, total bilirubin 0.4, direct bilirubin 0.3. Alkaline phosphatase 45. Troponin I-1.23-->1.18. Lipase 11. ABG pH 7.38, PCO2 52, PO2 88. Urinalysis-urine protein about 100, urine ketones 40. Toxicology-urine opiates 2990, urine benzodiazepines greater than 800. Negative for methadone, amphetamines and cocaine. Radiology: Foot x-ray: 1. There are no acute fractures or subluxations. 2. There are degenerative changes at the first MP joint. Chest x-ray: Mild prominence of the interstitial markings may represent mild interstitial edema. No acute airspace disease. Chest CT without IV contrast- 1. There is irregularity of the costochondral junction of the left seventh rib and of the lateral left ninth rib, consistent with acute fractures. There are no pleural effusions or pneumothoraces. There is a thoracolumbar sigmoid scoliosis as described above. 2. The study redemonstrates emphysematous disease of the lungs bilaterally. No focal consolidation is demonstrated. Lumbosacral spine x-ray : 1. Mild to moderate degenerative disc disease in the lower lumbar spine. 2. Mild facet arthropathy in the mid and lower lumbar spine. 3. S-shaped thoracolumbar scoliosis. Chest CTA- 1. There are no pulmonary thrombi emboli. 2. There is evidence of COPD and there are atelectatic changes in the right middle lobe. 3. The previously described irregularity of the left lateral ninth rib is likely artifactual. Irregularity of the anterior left seventh rib may be consistent with a nondisplaced fracture. VTE: Negative. Lower extremity venous Dopplers- Normal triplex scan without evidence of deep venous thrombosis involving the lower extremities. Bilateral lower extremity arterial Dopplers- Normal peripheral arterial testing with velocity measurements. No focal elevated velocities to suggest hemodynamically significant stenosis. Normal triphasic waveforms throughout the majority of both lower extremities. Problem list: #1 acute exacerbation of COPD #2 acute on chronic hypercarbic respiratory failure #3 tobacco use #4 elevated troponin-type II NJ #5 chronic pain syndrome on chronic use of opiates #6 History of pancreatitis #7 elevated liver chemistries #8 neuropathy She was admitted to telemetry since she had elevated troponin, with no EKG changes suggestive of NJ. Serial echocardiograms and cardiac enzyme (troponin I ) was trended, which peaked at 1.23, and was ruled out for NJ. Since the patient had persistent tachycardia, PE was considered in differential. She was initially started on intravenous heparin, which was discontinued after ruling out NJ, venous thromboembolism. The etiology of her chest pain was largely attributed to musculoskeletal causes, since she had pain which was reproducible upon palpation. In regards to her acute exacerbation of COPD with chronic hypercarbic respiratory failure, she was started on steroids and Spiriva. Since she was on chronic high-dose opiates for a long time, which was thought to be contributing to her worsening COPD. Since she has significant cachexia and continued use of tobacco, disease prognosis was discussed with her clearly. She should be started on chronic dose of azithromycin, but defer the decision to the customer records division supervisor at this time. Other abnormal labs noted, were mostly abnormal LFTs: AST 283-->474-->255; ALT 103-->183-->166, alkaline phosphatase 56-->45-->38, with no clear indication of choledocholithiasis or cholangitis. Right upper quadrant ultrasound was done which revealed mild distention of CBD up to 0.1 cm, given her previous history of postcholecystectomy state. (Detailed report below). Statin was discontinued. The reason for abnormal liver chemistries seemed unclear at this time. And was recommended to follow up with a primary care provider with a repeat check in the next 24-48 hrs. She is a chronic use of low opiates, which needs to be tapered down significantly. She gives a history of rheumatoid arthritis, and recommended her to follow up with her big 6 dealer regarding her medication use. There is an entity of opiate induced adrenal insufficiency, who has been using opiates for a long time, which needs to be investigated as an outpatient. She would also need work up of her proteinurea as an outpatient, to make sure that she doesnt have any nephrotic range proteinuria. Allergies: Coded Allergies: NO KNOWN ALLERGIES (06/03/12) Pertinent Lab Results: US - US-LIMITED ABDOMEN 12/26/17-06 1. Mild distention of the common bile duct is seen to 0.8 cm, most consistent with patient's postcholecystectomy state. No intrahepatic ductal dilatation is seen. 2. The patient is status post cholecystectomy. No evidence of abnormal fluid collection in the gallbladder fossa. 3. Benign simple cysts in the right kidney, one of which corresponds to the previously demonstrated finding on CT scan of the chest. 4. Incomplete view of the pancreatic head and tail. Visualized portions of pancreas unremarkable. --------- Echocardiogram 12/25/17 Left Ventricle: Normal global left ventricular size, wall thickness, systolic function with no obvious regional wall motion abnormalities. Normal left ventricular ejection fraction estimated at 60-65%. Right Ventricle Normal right ventricular size and function. Right Atrium Normal right atrial size. Left Atrium Normal left atrial size. Mitral Valve Mitral valve normal in structure and function. Trace mitral regurgitation. Aortic Valve Aortic valve is normal in structure and function. Tricuspid Valve Tricuspid valve is normal in structure and function. Trace to mild tricuspid regurgitation. Right ventricular systolic pressure estimated to be at upper limits of normal at 30 mmHg. Pulmonic Valve Pulmonic valve not well visualized, grossly normal. Pericardium No pericardial effusion. Great Vessels Normal size aortic root. CONCLUSIONS Normal left and right ventricular systolic function. No significant valvular abnormalities noted. -------- Disposition Summary Disposition Principal Diagnosis: Acute exacerbation of COPD Additional Diagnosis: Type II NJ Discharge Disposition: home or self care Discharge Instructions General Discharge Information Code Status: Full Code Patient's Diet: Heart healthy diet Patient's Activity: As tolerated Follow-Up Instructions/Appts: 1. Please follow-up with your primary care provider within the week of discharge. 2. Please follow-up with your lung doctor-customer records division supervisor within a week of discharge. Please ask about azithromycin 3. please discuss with your big 6 dealer about continuing the dose of prednisone after discharge. 4. Please follow up with your CHF clinic. 5. Please follow up with your painting department supervisor for a possible out patient stress test Medications at Discharge Discharge Medications: Continue taking these medications: Carisoprodol (Carisoprodol) 350 MG TABLET 1 Tablet ORAL 4XDAILY Qty = 120 Comments: LAST GIVEN 11/24/17 @ 1225 Hydromorphone HCl (Hydromorphone HCl) 4 MG TABLET 1 Tablet ORAL THREE TIMES DAILY Qty = 90 Comments: LAST GIVEN 11/24/17 @ 0838 Oxymorphone HCl (Oxymorphone HCl ER) 20 MG TAB.ER.12H 1 Tablet ORAL TWICE DAILY Qty = 60 Comments: NOT GIVEN Budesonide/Formoterol Fumarate (Symbicort 160-4.5 Mcg Inhaler) 160 MCG-4.5 MCG/ ACTUATION HFA.AER.AD 2 Puff Inhale through mouth TWICE DAILY Qty = 10 Comments: LAST GIVEN 11/24/17 @ 1031 Tiotropium [place] (Spiriva) 18 MCG CAP.W.DEV 1 Capsule Inhale through mouth DAILY Qty = 30 Instructions: . Comments: LAST GIVEN 11/24/17 @ 1031 Start taking the following new medications: Aspirin (Aspirin*) 81 MG TAB.CHEW 81 Milligram ORAL DAILY Qty = 90 Refills = 1 Prednisone (Prednisone) 20 MG TABLET 1 Tablet ORAL SEE ADMIN Qty = 19 No Refills Comments: ON 12/28-12/30 TAKE 3 TAB DAILY ON 12/31-01/02 TAKE 2 TAB DAILY ON 01/03-01/05 TAKE 1 TAB DAILY ON 01/06 TAKE .5 TAB Copies To: Bao GRAY,Geovanni Wilson; Ld GRAY,[place] Attending MD Review Statement Documenting Attending: Anurag GRAY,Jose D Other Findings: 57 o/f with pmh of chronic pain syndrome/ arthritis/COPD on home oxygen comes with shortness of breath. Patient underwent CTA chest no acute PE. Patient with elevated cardiac enzymes likely type 2 NJ and COPD exacerbation with improvement. Cardiology and pulmomnary consulted. She is dsicharged on PO steroids, oxygen supplementation baseline, bronchodilators. USG arterial with positive blood flow in both lower extremeities. PT consult for general physical deconditioning recommend home with pt discharge. Follow up pain management as outpatient. Stable for discharge.
[2017-12-26] MEDS ORDERED: ASPIRIN81 M4 PO (18:49)
--- NOTE | 2017-12-26 18:52 | Patient Discharge Instructions ---
Discharge Instructions General Discharge Information You were seen/treated for: Acute onset of shortness of breath COPD Watch for these problems: 1. Chest pain, shortness of breath, palpitations 2. Lightheadedness, dizziness Special Instructions: 1. Please follow-up with your primary care provider within the week of discharge. 2. Please follow-up with your lung doctor-sales product manager within a week of discharge. Please ask about azithromycin 3. please discuss with your yarding and folding machine operator about continuing the dose of prednisone after discharge. 4. Please follow up with your CHF clinic. 5. Please follow up with your full stack engineer for a possible out patient stress test Acute Coronary Syndrome Inclusion Criteria At DC or during hospital stay patient has or had the following: ACS DIAGNOSIS No Discharge Core Measures Meds if any: Prescribed or Continued at Discharge Meds if any: NOT Prescribed or Continued at Discharge Congestive Heart Failure Inclusion Criteria At DC or during hospital stay patient has or had the following: CHF DIAGNOSIS No Discharge Core Measures Meds if any: Prescribed or Continued at Discharge Meds if any: NOT Prescribed or Continued at Discharge Cerebrovascular accident Inclusion Criteria At DC or during hospital stay patient has or had the following: CVA/TIA Diagnosis No Discharge Core Measures Meds if any: Prescribed or Continued at Discharge Meds if any: NOT Prescribed or Continued at Discharge Venous thromboembolism Inclusion Criteria VTE Diagnosis No VTE Type NONE VTE Confirmed by (Test) NONE Discharge Core Measures - Per Current guidelines, there needs to be overlap - treatment for the first 5 days of Warfarin therapy. - If discharged on Warfarin prior to 5 days of - overlap therapy, the patient will need to be - assessed for post discharge needs including - *Post discharge parental anticoagulation - *Warfarin and/or parental anticoagulation education - *Follow up date to check INR post discharge At least 5 days overlap therapy as Inpatient No Meds if any: Prescribed or Continued at Discharge Note: Overlap Therapy is Warfarin and Anticoagulant Meds if any: NOT Prescribed or Continued at Discharge
[2017-12-26 22:44] VITALS: BP 84/52
[2017-12-27 07:28] VITALS: BP 104/62
[2017-12-27 08:41] LABS: ABSOLUTE BASOPHIL COUNT 0 /CUMM (0.0-0.2); ABSOLUTE EOSINOPHIL COUNT 0 /CUMM (0.0-0.7); ABSOLUTE GRANULOCYTE CT 2.4 /CUMM (1.4-6.5); ABSOLUTE LYMPH COUNT 0.7 /CUMM (1.2-3.4); ABSOLUTE MONOCYTE COUNT 0.3 /CUMM (0.10-0.60); BASOPHIL % 0.1 % (0.0-2.0); EOSINOPHIL % 0 % (0-5); GRANULOCYTE % 68.7 % (42.2-75.2); HEMATOCRIT 32.4 % (37-47); MEAN CORPUSCULAR HGB 30.8 PG (27.0-31.0); MEAN CORPUSCULAR VOLUME 90.7 FL (81.0-99.0); MEAN PLATELET VOLUME 7.2 FL (7.4-10.4); PLATELET COUNT 177 /CUMM (130-400); RBC DISTRIBUTION WIDTH 16.6 % (11.5-14.5); RED BLOOD CELL CT 3.57 /CUMM (4.20-5.40); WHITE BLOOD CELL COUNT 3.4 /CUMM (4.8-10.8)
--- NOTE | 2017-12-27 09:04 | ECHOCARDIOGRAM REPORT ---
CHARMAINE JOYA Age: 57 : 1960 Gender: F Exam Date: 12/26/2017 11:22 Exam Location: 1 [place] Ht (in): 66 Wt (lb): 100 BSA: 1.44 BP: 104 / 71 Ordering Physician: Alejo Blakely MD Referring Physician: Alejo Blakely MD Technologist: Raffi Flanagan [facility] Room Number: [id number] Indications: Shortness of breath Rhythm: Sinus Technical Quality: fair FINDINGS Left Ventricle Normal global left ventricular size, wall thickness, systolic function with no obvious regional wall motion abnormalities. Normal left ventricular ejection fraction estimated at 60-65%. Right Ventricle Normal right ventricular size and function. Right Atrium Normal right atrial size. Left Atrium Normal left atrial size. Mitral Valve Mitral valve normal in structure and function. Trace mitral regurgitation. Aortic Valve Aortic valve is normal in structure and function. Tricuspid Valve Tricuspid valve is normal in structure and function. Trace to mild tricuspid regurgitation. Right ventricular systolic pressure estimated to be at upper limits of normal at 30 mmHg. Pulmonic Valve Pulmonic valve not well visualized, grossly normal. Pericardium No pericardial effusion. Great Vessels Normal size aortic root. CONCLUSIONS Normal left and right ventricular systolic function. No significant valvular abnormalities noted. Raul Lockwood M.D. (Electronically Signed) Final Date: 27 December 2017 09:03 MEASUREMENTS (Male / Female) Normal Values 2D ECHO LV Diastolic Diameter PLAX 4.5 cm 4.2 - 5.9 / 3.9 - 5.3 cm LV Systolic Diameter PLAX 2.6 cm 2.1 - 4.0 cm LV Fractional Shortening PLAX 42.2 % 25 - 46 % LV Ejection Fraction 2D Teich 73.4 % IVS Diastolic Thickness 0.7 cm LVPW Diastolic Thickness 1.0 cm LV Relative Wall Thickness 0.4 RV Internal Dim ED PLAX 2.7 cm 1.9 - 3.8 cm LVOT Diameter 2.1 cm Aortic Root Diameter 3.3 cm LA Systolic Diameter LX 2.6 cm 3.0 - 4.0 / 2.7 - 3.8 cm Ascending Aorta Diameter 2.9 cm DOPPLER AV Peak Velocity 122.0 cm/s AV Peak Gradient 6.0 mmHg AV Mean Velocity 80.7 cm/s AV Mean Gradient 3.0 mmHg AV Velocity Time Integral 22.4 cm LVOT Peak Velocity 88.7 cm/s LVOT Peak Gradient 3.1 mmHg LVOT Mean Velocity 49.0 cm/s LVOT Mean Gradient 1.0 mmHg LVOT Velocity Time Integral 16.7 cm LVOT Stroke Volume 57.8 cm AV Area Cont Eq vti 2.6 cm AV Area Cont Eq pk 2.5 cm MV Peak Velocity 81.0 cm/s MV Peak Gradient 2.6 mmHg MV Mean Velocity 57.0 cm/s MV Mean Gradient 1.0 mmHg Mitral E Point Velocity 58.2 cm/s Mitral A Point Velocity 69.1 cm/s Mitral E to A Ratio 0.8 MV PHT Velocity 73.0 cm/s MV Deceleration [place] 284.0 cm/s MV Pressure Half Time 77.1 ms MV Area PHT 2.9 cm MV Deceleration Time 278.0 ms TR Peak Velocity 255.0 cm/s TR Peak Gradient 26.0 mmHg Right Atrial Pressure 10.0 mmHg Pulmonary Artery Systolic Pressu 36.0 mmHg Right Ventricular Systolic Press 36.0 mmHg PV Peak Velocity 85.5 cm/s PV Peak Gradient 2.9 mmHg PV Mean Velocity 57.8 cm/s PV Mean Gradient 2.0 mmHg PV Velocity Time Integral 16.4 cm
--- NOTE | 2017-12-27 12:45 | PN- Cardiology ---
Subjective Subjective: Resting comfortably today. Reports left-sided chest pain only with palpation. Objective Vital Signs and I&Os Vital Signs Date Time Temp Pulse Resp B/P B/P Pulse O2 O2 Flow FiO2 Mean Ox Delivery Rate 12/27 0833 94 Nasal 2.0L Cannula 12/27 0728 98.2 90 20 104/62 97 Nasal Cannula 12/27 0000 Nasal 3.0L Cannula 12/26 2244 98.0 104 20 84/52 74 Nasal Cannula 12/26 2013 97 Nasal 3.0L Cannula 12/26 1451 98.1 115 20 94/54 92 Nasal 3.0L Cannula Intake & Output 12/27 1600 12/27 0800 12/27 0000 12/26 1600 12/26 0800 12/26 0000 Intake Total 150 726.9 1458.6 793.2 1385.8 Output Total 300 Balance 150 726.9 1458.6 493.2 1385.8 Intake, IV 404.9 756.6 743.2 1185.8 Intake, Oral 150 322 702 50 200 Output, Urine 300 Patient 112 lb 111 lb Weight Weight Bed scale Bed scale Measurement Method Physical Exam: General: no apparent distress. Alert. Eyes: No obvious scleral icterus. HEENT: No jugular venous distention or abnormal jugular venous pulsations. Cardiovascular: Normal intensity S1/S2. Regular Respiratory: Mildly decreased air entry bilaterally without rales Abdomen: no guarding or rebound tenderness. Musculoskeletal: No clubbing or cyanosis noted Skin: Warm Current Medications: Current Medications Sig/Renetta Start time Last Medication Dose Route Stop Time Status Admin Albuterol Sulfate 3 ML BID 12/25 2200 AC 12/27 INH 0814 Aspirin 81 MG DAILY 12/26 1000 AC 12/27 PO 1107 Budesonide/ 2 PUF BID 12/25 1225 AC 12/27 Formoterol Fumarate INH 1101 Carisoprodol 350 MG Q6H 12/25 1230 AC 12/27 PO 1209 Heparin Sodium 5,000 UNIT Q8 12/26 2199 AC 12/27 (Porcine) SC 0643 Heparin Sodium 25,000 UNIT Q24H 12/25 1200 DC 12/26 (Porcine) IV 1242 Sodium Chloride 500 ML Hydromorphone HCl 4 MG TID 12/25 1225 AC 12/27 PO 1107 Methylprednisolone 40 MG Q12 12/26 220 AC 12/27 IV 1107 Oxycodone HCl 20 MG BID 12/25 1615 AC 12/27 PO 1108 Sodium Chloride 1,000 ML Q13H 12/25 1415 DC 12/26 IV 12/26 1614 0548 Tiotropium [place] 1 PUF DAILY 12/25 1226 AC 12/27 INH 1101 Results Last 48 Hrs of Labs/Mics: Laboratory Tests 12/27/17 0700: Anion Gap 5, Estimated GFR > 60, BUN/Creatinine Ratio 37.5 H, Total Bilirubin 0.3, Direct Bilirubin 0.3, AST 255 H, ALT 166 H, Alkaline Phosphatase 38, Total Protein 4.9 L, Albumin 2.6 L, Cortisol AM Sample 3.0 L, CBC w Diff NO MAN DIFF REQ, RBC 3.57 L, MCV 90.7, MCH 30.8, MCHC 34.0, RDW 16.6 H, MPV 7.2 L, Gran % 68.7, Lymphocytes % 21.3, Monocytes % 9.9 H, Eosinophils % 0, Basophils % 0.1, Absolute Granulocytes 2.4, Absolute Lymphocytes 0.7 L, Absolute Monocytes 0.3, Absolute Eosinophils 0, Absolute Basophils 0 12/26/17 1445: APTT 64 H 12/26/17 0641: Anion Gap 8, Estimated GFR > 60, BUN/Creatinine Ratio 22.5, Total Bilirubin 0.4, Direct Bilirubin 0.3, AST 474 H, ALT 182 H, Alkaline Phosphatase 45, Total Protein 5.5 L, Albumin 3.0 L, APTT 53 H, CBC w Diff NO MAN DIFF REQ, RBC 3.96 L, MCV 90.6, MCH 30.8, MCHC 34.0, RDW 15.8 H, MPV 7.3 L, Gran % 78.1 H, Lymphocytes % 12.0 L, Monocytes % 9.7 H, Eosinophils % 0, Basophils % 0.2, Absolute Granulocytes 4.5, Absolute Lymphocytes 0.7 L, Absolute Monocytes 0.6, Absolute Eosinophils 0, Absolute Basophils 0 12/25/17 1825: APTT 86 H Recent Imaging Studies: telemetry tracings were personally reviewed and shows sinus rhythm Echocardiogram Normal left and right ventricular systolic function. No significant valvular abnormalities noted. Assessment/Plan Assessment/Plan 1. Chest pain most likely secondary to rib fracture 2. Elevated troponin due type II VT with demand ischemia secondary COPD 3. Sinus tachycardia 4. COPD 5. Nondisplaced left seventh rib fracture 6. Nonsustained ventricular tachycardia most likely secondary to a combination of COPD and demand ischemia 7. abnormal LFTs Resting comfortably and reports the left-sided chest pain is now clearly reproducible and felt due to a possible rib fracture. Echocardiogram shows no evidence of regional wall motion abnormality. Continue on daily aspirin but statin therapy is being deferred due to abnormal Lfts which will be worked up by the primary medical team. Patient will follow up with me after discharge and we will consider the possibility of outpatient stress test. Tim Arriaga MD FAC Continue telemetry? No
--- NOTE | 2017-12-27 13:53 | PN- Housestaff ---
Franki GRAY,Pelon 12/27/17 1353: Subjective Follow-up For: URI TRANSAMANITIS Complaints: no complaints Subjective: Saw pt at bedside this AM. No acute overnight complaints or events. She wants to go home today. Review of Systems Constitutional: Reports: no symptoms. Cardiovascular: Denies: chest pain, palpitations. Respiratory: Reports: short of breath. Denies: cough, wheezing. Gastrointestinal: Denies: abdominal pain, constipation, diarrhea. Genitourinary: Reports: no symptoms. Musculoskeletal: Reports: no symptoms. Skin: Reports: no symptoms. Objective Last 24 Hrs of Vital Signs/I&O Vital Signs Date Time Temp Pulse Resp B/P B/P Pulse O2 O2 Flow FiO2 Mean Ox Delivery Rate 12/27 1442 98.1 71 18 124/74 94 Nasal Cannula 12/27 0833 94 Nasal 2.0L Cannula 12/27 0728 98.2 90 20 104/62 97 Nasal Cannula 12/27 0000 Nasal 3.0L Cannula 12/26 2244 98.0 104 20 84/52 74 Nasal Cannula 12/26 2013 97 Nasal 3.0L Cannula Intake & Output 12/27 1600 12/27 0800 12/27 0000 Intake Total 150 726.9 Output Total Balance 150 726.9 Intake, IV 404.9 Intake, Oral 150 322 Patient 50.802 kg Weight Weight Bed scale Measurement Method Physical Exam General Appearance: Alert, Oriented X3, Cooperative, No Acute Distress Skin: No Rashes, No Significant Lesion HEENT: Atraumatic, PERRLA, EOMI Neck: Supple Lungs: decreased airmovement. No wheezing Abdomen: Soft, No Tenderness Neurological: Normal Speech, Cranial Nerves 3-12 NL Current Medications: Current Medications Sig/Renetta Start time Last Medication Dose Route Stop Time Status Admin Albuterol Sulfate 3 ML BID 12/25 2200 AC 12/27 INH 0814 Aspirin 81 MG DAILY 12/26 1000 AC 12/27 PO 1107 Budesonide/ 2 PUF BID 12/25 1225 AC 12/27 Formoterol Fumarate INH 1101 Carisoprodol 350 MG Q6H 12/25 1230 AC 12/27 PO 1209 Heparin Sodium 5,000 UNIT Q8 12/26 2200 AC 12/27 (Porcine) SC 0643 Hydromorphone HCl 4 MG TID 12/25 1225 AC 12/27 PO 1107 Methylprednisolone 40 MG Q12 12/26 2200 AC 12/27 IV 1107 Oxycodone HCl 20 MG BID 12/25 1615 AC 12/27 PO 1108 Sodium Chloride 1,000 ML Q13H 12/25 1415 DC 12/26 IV 12/26 1614 0548 Tiotropium [place] 1 PUF DAILY 12/25 1226 AC 12/27 INH 1101 Last 24 Hrs of Lab/Norm Results Last 24 Hrs of Labs/Mics: Laboratory Tests 12/27/17 0700: Anion Gap 5, Estimated GFR > 60, BUN/Creatinine Ratio 37.5 H, Total Bilirubin 0.3, Direct Bilirubin 0.3, AST 255 H, ALT 166 H, Alkaline Phosphatase 38, Total Protein 4.9 L, Albumin 2.6 L, Cortisol AM Sample 3.0 L, CBC w Diff NO MAN DIFF REQ, RBC 3.57 L, MCV 90.7, MCH 30.8, MCHC 34.0, RDW 16.6 H, MPV 7.2 L, Gran % 68.7, Lymphocytes % 21.3, Monocytes % 9.9 H, Eosinophils % 0, Basophils % 0.1, Absolute Granulocytes 2.4, Absolute Lymphocytes 0.7 L, Absolute Monocytes 0.3, Absolute Eosinophils 0, Absolute Basophils 0 Assessment/Plan Assessment: This is a 57 yo female with PMH of severe copd on 2L o2 at home, RA, Chornic pain, chronic smoker who came in with SOB thought to be secondary to COPD exacerbation. During hospital work up she was found to have elevated trops up to 1.23, and transamanitis in addition to her respiratory complaints. PLAN: #1 acute on chronic hypercarbic respiratory failure due to COPD: She has hx of enterobacter bronchitis. * Appreciate pulm consult * Pt on solumedrol 40mg IV Q12 today. Will taper per pulm with hopes of dc today * Baseline O2 is 2-3L * Per pulm, will need to start her on azithromycin 3 times a week to prevent future COPD exacerbations * Con't spiriva and symbicort #2 tobacco use: Counseled smoking cessation #3 elevated troponin: Type I OK, Trops tapered from 1.23 to 1.18. Pt started on ASA. Statin on hold for c/o transamanitis. Was on heparin drip and then stopped. * Out pt stress test * Consider statin on out pt basis after transamanitis has resolved * Echo #4 chronic pain syndrome on chronic use of opiates: Will need to follow up with pain management out pt. She is on significant regimen of opiates #5 elevated liver chemistries: abdominal US shows post-cholecystectomy state with slightly dilated CBP w/o intrahepatic dilation. AST 474 and ALT 182 yesterday; today 255/166 respectively. Pt denies any etoh consmption, is of post -marian state, no evidence of pancreatitis; currently unsure of etiology. nml bili/coags and plt. * Have given script to check LFT tomorrow * Check HEP panel tomorrow * Hold off starting statin Problem List: 1. COPD exacerbation Pain Ratin Pain Location: none Pain Goal: Remain pain free Pain Plan: current reg Tomorrow's Labs & Rationales: none Jose D Osborn 12/27/17 1413: Attending MD Review Statement Attending Statement Attending MD Statement: examined this patient, discuss w/resident/PA/PERMANENT MOLD SUPERVISOR, agreed w/resident/PA/PERMANENT MOLD SUPERVISOR, discussed with family, reviewed EMR data (avail), discussed with nursing, discussed with case mgmt, reviewed images, amended to note Attending Assessment/Plan: 57 o/f with pmh of chronic pain syndrome/ arthritis/COPD on home oxygen comes with shortness of breath. Patient underwent CTA chest no acute PE. Patient with elevated cardiac enzymes likely type 2 OK and COPD exacerbation with improvement. Cardiology and pulmomnary consulted. She is on iv steroids which can be taper PO , oxygen supplementation baseline, bronchodilators. USG arterial with positive blood flow in both extremeities. PT consult for general physical deconditioning recommend home with pt discharge. Follow up pain management as outpatient. Anticipate discharge soon
[2017-12-27 14:42] VITALS: BP 124/74
[2017-12-27] MEDS ORDERED: PREDNISONE20 M1 PO (18:04)
== END 2017-12-27 18:12 | disposition home health service (06) | DRG 190 ==
LOC: ERH 07:01 → ERHI 08:27 → 1NO 08:27 → ENRESERV 13:33 → 1NO 16:56
PROVIDERS: Emergency Medicine; Internal Medicine; Internal Medicine Endocrinology, Diabetes & Metabolism; Student in an Organized Health Care Education/Training Program
DX: J44.1 Chronic obstructive pulmonary disease with (acute) exacerbation (principal); I21.A1 Myocardial infarction type 2; I47.2 Ventricular tachycardia; R64 Cachexia; J96.12 Chronic respiratory failure with hypercapnia; Z99.81 Dependence on supplemental oxygen; G62.9 Polyneuropathy, unspecified; M06.9 Rheumatoid arthritis, unspecified; R79.89 Other specified abnormal findings of blood chemistry; G89.4 Chronic pain syndrome; F17.210 Nicotine dependence, cigarettes, uncomplicated; Z87.81 Personal history of (healed) traumatic fracture; M51.36 Other intervertebral disc degeneration, lumbar region; Z79.891 Long term (current) use of opiate analgesic; Z87.19 Personal history of other diseases of the digestive system
CPT/HCPCS: 1NSP; 36592; 71045; 72110; 73630-LT; 80307; 81001; 82436; 82570; 87070; 87086; 93005; 93010; 93306; 93925; 93970; 96361; 96374; 97116-GO; 97161-GP; 99291; J1644; J2920; J3490